=== PATIENT | female | born 1960 | race Caucasian/White ===

== ENCOUNTER 2019-07-14 09:36 | Inpatient (IN) | payer OTHER, SELFPAY ==
[2019-07-14] VITALS (15 sets, daily range): BP systolic 103–156; BP diastolic 52–78; PULSE 50–107; RESP 9–18; TEMP 36.3–36.8; O2SAT 96–100; BMI 30.7
--- NOTE | ~2019-07-14 | XR_ITS ---
EXAMINATION: XR abdomen obstructive series DATE: 07/17/2019 12:18 INDICATION: Postoperative abdominal pain TECHNIQUE: Upright and supine views of the abdomen were obtained. COMPARISON: None. FINDINGS: A small amount of free intraperitoneal gas is seen, likely related to recent surgery. There are mildly dilated loops of bowel in the left upper quadrant. Subcutaneous gas is seen in the abdomi nal wall. Surgical clips are noted in the right lower quadrant. Contrast from yesterday's CT examinat ion opacifies the urinary bladder. IMPRESSION: 1. Mildly dilated loops of bowel in the left upper quadrant, likely ileus. Reviewed, dictated and finalized at location A.
--- NOTE | ~2019-07-14 | CT_ITS ---
EXAMINATION: CT chest w con DATE: 07/16/2019 10:45 INDICATION: Colon cancer TECHNIQUE: Computed tomography (CT) of the chest was performed with 100 mL Omnipaque-350 intravenous contrast. Additional 3D reconstructions utilizing coronal maximum intensity projection (MIP) were per formed. Automated exposure control and iterative reconstruction technique were employed. The dose-hao gth product was 191.56 mGy-cm. COMPARISON: None FINDINGS: Small bilateral pleural effusions. Consolidation in the bilateral lower lobes with bronchovascular cr owding, relatively homogeneous pulmonary parenchymal enhancement and associated volume loss consisten t with atelectasis. No other pulmonary infiltrates to suggest pneumonia. No pulmonary edema or pneumo thorax. Arch size is normal. No pericardial effusion. No pathologically enlarged thoracic lymphadenop athy. Again seen are a few low-attenuation likely hepatic cyst. Small amount of pneumoperitoneum norm al underlying the right hemidiaphragm consistent with reported recent appendectomy and right hemicole ctomy. Posterior layering high attenuation sludge versus more likely vicariously excreted contrast in the gallbladder. Mild thoracic spondylosis. No suspicious lytic or blastic bone lesions. IMPRESSION: 1. No evident thoracic metastatic disease. 2. Small bilateral pleural effusions with moderate atelectasis in the bilateral dependent lower lobes . 3. Small amount of pneumoperitoneum in the right upper quadrant likely related to reported recent janey endectomy and right hemicolectomy. Reviewed, dictated and finalized at location A. IMPRESSION: 1. No evident thoracic metastatic disease. 2. Small bilateral pleural effusions with moderate atelectasis in the bilateral dependent lower lobes. 3. Small amount of pneumoperitoneum in the right upper quadrant likely related to reported recent appendectomy and right hemicolectomy.
--- NOTE | ~2019-07-14 | CT_ITS ---
EXAMINATION: CT abdomen pelvis w con INDICATION: Diffuse abdominal pain, nausea and vomiting TECHNIQUE: Computed tomographic images of the abdomen and pelvis were obtained after the administrati on of 100 cc of Omnipaque 350 intravenous contrast. The dose-length product (DLP) was 460.11 mGy-cm. Automated exposure control and iterative reconstruction technique were employed. COMPARISON: None available FINDINGS: Minimal dependent atelectasis is present in the lung bases. The heart size is normal. Low a ttenuation lesions of the liver measuring up to 1.2 cm likely represent cysts. The spleen, pancreas, gallbladder, and adrenal glands are normal. The kidneys are unremarkable. No pathologically enlarged abdominal or pelvic lymph nodes are identified. There is no free intraperitoneal gas or evidence of b owel obstruction. The appendix is dilated up to 10 mm at its base. There is adjacent wall thickening and enhancement of the cecum. A 2.4 x 1.9 cm fluid collection is seen near the base of the appendix w ithout rim enhancement. There is mild lumbar spondylosis. IMPRESSION: 1. Acute appendicitis. Wall thickening of the cecum could be reactive or reflect underlying cecal conor plasm resulting in appendicitis. Surgical consultation is recommended. Reviewed, dictated and finalized at location B. IMPRESSION: 1. Acute appendicitis. Wall thickening of the cecum could be reactive or reflec t underlying cecal neoplasm resulting in appendicitis. Surgical consultation is recommended.
--- NOTE | ~2019-07-14 | XR_ITS ---
EXAMINATION: XR abdomen obstructive series DATE: 07/20/2019 10:27 INDICATION: Abdominal distention TECHNIQUE: Upright and supine views of the abdomen were obtained. COMPARISON: 07/17/2019 FINDINGS: No persistent free intraperitoneal gas is identified. Left upper quadrant bowel loops have returned to normal in caliber. No dilated loops of bowel are evident. Subcutaneous gas has also decre ased. IMPRESSION: 1. Nonobstructive bowel gas pattern. Reviewed, dictated and finalized at location A.
[2019-07-14 10:02] LABS: Hematocrit 41.4 % (37.0-47.0); Hemoglobin 13.5 g/dL (12.0-15.0); Mean Corpuscular HGB Conc 32.6 g/dl (32-36); Mean Corpuscular Hemoglobin 27.2 pg (26-34); Mean Corpuscular Volume 83.5 fl (80-100); Mean Platelet Volume 9.7 fl (7.4-10.4); Platelet Count Result 335 k/mm3 (150-375); Red Blood Count 4.96 M/mm3 (4.2-5.4); Red Cell Distribution Width 13.2 % (11.5-14.5); White Blood Count 21.2 K/mm3 (4.5-10.0)
--- NOTE | 2019-07-14 10:05 | ED.ABDPAIN ---
HPI - Abdominal Pain General Chief Complaint: Abdominal Pain <ABISAI Thapa Last Filed: 07/14/19 11:52> Stated Complaint: abd pain <ABISAI Thapa Last Filed: 07/14/19 11:52> Time Seen by Provider: 07/14/19 09:42 <ABISAI Thapa Last Filed: 07/14/19 11:52> Source: patient <ABISAI Thapa Last Filed: 07/14/19 11:52> Mode of arrival: ambulatory <ABISAI Thapa Last Filed: 07/14/19 11:52> Limitations: no limitations <ABISAI Thapa Last Filed: 07/14/19 11:52> History of Present Illness HPI narrative: This is a 58 year old female that presents to the ER for diffuse abdominal pain. Reports diffuse crampy/sharp abdominal pain that started around 11:00pm last night. Associated with nausea and vomiting. Also reports some frequent stools, that are normal in caliber. Reports she has had urinary frequency as well. Denies fever, chest pain, shortness of breath, diarrhea, hematochezia, dysuria or hematuria. <ABISAI Thapa Last Filed: 07/14/19 11:52> Related Data Home Medications: Home Medications Medication Instructions Recorded Confirmed No Home Medications 03/19/19 03/19/19 <ABISAI Thapa Last Filed: 07/14/19 11:52> Allergies/Adverse Reactions: Allergies Allergy/AdvReac Type Severity Reaction Status Date / Time No Known Allergies Allergy Unknown Verified 07/14/19 09:47 <ABISAI Thapa Last Filed: 07/14/19 11:52> Review of Systems Review of Systems: Narrative: CONSTITUTIONAL: Denies fever CARDIOVASCULAR: Denies chest pain RESPIRATORY: Denies dyspnea. GASTROINTESTINAL: Reports abdominal pain, nausea, vomiting. Denies diarrhea. GENITOURINARY: Denies dysuria or hematuria. <ABISAI Thapa Last Filed: 07/14/19 11:52> All systems reviewed & are unremarkable except as noted in HPI and below <Faith Weller PA-C - Last Filed: 07/14/19 11:52> [facility] Past Medical History Medical History: Medical History TONY (obstructive sleep apnea) <Faith Weller PA-C - Last Filed: 07/14/19 11:52> Surgical History Surgical History: Surgical History (Updated 07/14/19 @ 12:23 by Dennis Case DO) History of dilatation and curettage History of laparoscopy <Faith Weller PA-C - Last Filed: 07/14/19 11:52> Social History Social History: Social History Smoking status: Never smoker Second hand tobacco smoke exposure: Yes Alcohol intake: current Drinks per week: 2 Substance use: never Gender identity (if verbalized by the patient): Female Spiritual care concerns: No Agree to blood products: Yes <Faith Weller PA-C - Last Filed: 07/14/19 11:52> Exam Narrative: Exam Narrative: GENERAL: Well-appearing, well-nourished, and in mild acute distress due to pain HEAD: Normocephalic, atraumatic. EYES: EOMI. CHEST: Clear to auscultation. No respiratory distress. No wheezes rales or rhonchi HEART: Regular rate and rhythm. No murmur heard. Normal peripheral pulses. ABDOMEN: Soft, nondistended, normal active bowel sounds. Moderate tenderness to palpation throughout the abdomen, without guarding. No CVA tenderness EXTREMITIES: Normal range of motion. No edema. SKIN: Warm, dry, no rash. NEURO: No focal deficits. Alert and oriented x3. PSYCH: Normal mood and affect <Faith Weller PA-C - Last Filed: 07/14/19 11:52> Course SOFTWARE PACKAGING ENGINEER/PA Physician Supervision For this patient encounter, I reviewed the SOFTWARE PACKAGING ENGINEER or PA documentation, treatment plan, and medical decision making; and I had [id number] time with this patient. GENERAL: Well-appearing, well-nourished, and in no acute distress. HEAD: Normocephalic, atraumatic. CHEST: Clear to auscultation. No respiratory distress. HEART: Regular rate and rhythm. Normal peripheral pulses. ABDOMEN: Soft, mil
[2019-07-14 10:16] LABS: Alanine Aminotransferase 17 U/L (4-35); Albumin Level 4.5 g/dL (3.5-5.1); Alkaline Phosphatase 139 U/L (38-126); Aspartate Amino Transferase 27 U/L (14-36); Bilirubin,Total 0.6 mg/dL (0.2-1.3); Blood Urea Nitrogen 11 mg/dL (7-17); Calcium 9.2 mg/dL (8.4-10.2); Carbon Dioxide 23 mmol/L (22-30); Chloride 102 mmol/L (98-107); Estimated CRCL calculation 84 ml/min; Estimated Glomerular Filt Rate > 60; Glucose 151 mg/dL (65-105); Lipase 32 U/L (23-300); Potassium 3.7 mmol/L (3.4-5.0); Sodium 136 mmol/L (137-145)
[2019-07-14 10:18] LABS: Band Neutrophils Percent 1 % (0-6); Lymphocytes Absolute Manual 0.63 K/mm3 (1.1-4.5); Neutrophils Absolute Manual 20.56 K/mm3 (1.7-7.2); Neutrophils Percent Manual 96 % (46-73); Platelet Estimate Adequate (Adequate); Total Cells Counted 100
[2019-07-14] MEDS: ONDANSETRON INJ 4 MG/2 ML VIAL IV PUSH (10:18)
[2019-07-14] MEDS: FAMOTIDINE 20 MG/2 ML VIAL IV PUSH (10:18)
[2019-07-14] MEDS: MORPHINE SULFATE 4 MG/ML INJ IV PUSH (10:19)
[2019-07-14] MEDS: SODIUM CHLORIDE 0.9% IV 1,000 ML 999 ML IV CONT (10:19)
[2019-07-14 10:23] LABS: Add Urine Microscopic? YES; Appearance Urine Clear (Clear); Bilirubin Urine Negative (Negative); Blood Urine 1+ (Negative); Color Urine Yellow (Yellow); Glucose Urine UA Negative (Negative); Ketones Urine Negative (Negative); Leukocyte Esterase Ur Negative LEU/UL (Negative); Mucus Urine Rare /lpf; Nitrate Urine Negative (Negative); Protein Urine 1+ mg/dL (Negative); Specific Grav Ur 1.024 (1.001-1.035); Squamous Epithelial Cell Urine Few /hpf (Few); Urobilinogen Urine Negative mg/dL (<2.0); WBC Urine 0-3 /hpf
[2019-07-14 11:15] LABS: Lactic Acid Reflex 1.4 mmol/L (0.7-2.1)
--- NOTE | 2019-07-14 11:50 | PC.NURSE ---
report called to OR nurse by ED nurse Mary
--- NOTE | 2019-07-14 12:19 | PM.IMHP ---
H&P: HPI History of Present Illness Chief complaint: abd pain Narrative: Luba Hernandez is a 58 year old female who presented to the emergency department today with complaints of right lower quadrant pain with nausea and vomiting. She began having pain last night around 11:00 p.m.. She does state that she has been having some intermittent right lower quadrant pain that she thought might have been related to a kidney stone or other urinary problem leading up to this. She has never had a colonoscopy. She denies fevers or chills. Review of Systems Review of Systems: All systems reviewed & are unremarkable except as noted in HPI and below Eyes: Eyes: Denies change in vision ENT: Denies hearing loss, Denies neck pain and Denies sore throat Cardiovascular: Cardiovascular: Denies chest pain and Denies dyspnea Respiratory: Respiratory: Denies cough, Denies dyspnea and Denies wheezing Gastrointestinal: Gastrointestinal: Reports as per HPI Genitourinary: Genitourinary: Denies hematuria and Denies dysuria Musculoskeletal: Musculoskeletal: Denies arthralgias, Denies joint swelling and Denies neck pain Allergic/Immunologic: Allergic/Immunologic: Denies wheezing PMF Past Medical History Medical History TONY (obstructive sleep apnea) Surgical History Surgical History (Updated 07/14/19 @ 12:23 by Dennis Case DO) History of dilatation and curettage History of laparoscopy Social History Social History Smoking status: Never smoker Second hand tobacco smoke exposure: Yes Alcohol intake: current Substance use: never Gender identity (if verbalized by the patient): Female Meds Home Medications and Allergies Home Medications Medication Instructions Recorded Confirmed Type No Home Medications 03/19/19 03/19/19 History Allergies Allergy/AdvReac Type Severity Reaction Status Date / Time No Known Allergies Allergy Unknown Verified 07/14/19 09:47 Vital Signs Vital Signs - 24 hr 07/14/19 09:43 07/14/19 10:15 07/14/19 11:13 Temperature 36.8 C Pulse Rate 107 H 90 87 Respiratory Rate 18 18 18 Blood Pressure 148/69 H 156/64 H 143/63 H Pulse Oximetry 100 100 98 07/14/19 12:07 Temperature Pulse Rate 87 Respiratory Rate 16 Blood Pressure 134/60 Pulse Oximetry 100 Exam Const: General: alert; No acute distress Orientation/consciousness: patient oriented x3 Limitations: no limitations HENMT: Head: normocephalic and atraumatic Ears: hearing grossly normal bilaterally General nose exam: Normal external nose present and Normal nares present Mouth: Yes Normal oral and palatal mucosa present and Yes moist mucous membranes Eyes: General: appearance normal, both eyes and all related structures Conjunctivae: conjunctivae normal Sclera: sclerae normal Pupils: Equal, round and reactive pupils present EOM: EOMs intact bilaterally Neck: Neck: normal visual inspection, full ROM, no lymphadenopathy, supple and no JVD Lymphatic: no lymphadenopathy noted Chest: Chest palpation & inspection: normal inspection of the chest Resp: Effort & Inspection: normal respiratory effort and able to speak in complete sentences Auscultation: clear to auscultation bilaterally Percussion: percussion normal Cardio: Jugular venous distension: no JVD Rate: regular rate Rhythm: regular rhythm Heart sounds: S1 normal heart sound present and S2 normal heart sound present Peripheral pulses: Peripheral pulses 2+ throughout GI: Inspection: normal to inspection GI Palp: Yes abdominal tenderness, Yes Soft to palpation, Yes Tenderness to palpation present (GI) (Right lower quadrant), No Guarding due to palpation present (GI), No Hernia present and No Rebound tenderness present Percussion: Yes normal to percussion Auscultation: normal bowel sounds : General: Yes no CVA tenderness Back/Spine/Pelvis:
--- NOTE | 2019-07-14 12:20 | WPDANESEPPF ---
Anes - Initial Pre Proc Eval Procedure: Operation Date: 07/14/19 12:00 Proposed Procedures p Laparoscopic Appendectomy, possible open - Dennis Case DO Date/Time: 07/14/19 12:20 Surgeon: Dennis Case DO Pre Op Diagnosis: abd pain Patient Data Age: 58 Gender: F Height: 5 ft 2 in Weight: 76.2 kg Last Vital Signs Temp 36.8 C 07/14/19 09:43 Pulse 87 07/14/19 12:07 Resp 16 07/14/19 12:07 BP 134/60 07/14/19 12:07 Pulse Ox 100 07/14/19 12:07 Allergies Allergy/AdvReac Type Severity Reaction Status Date / Time No Known Allergies Allergy Unknown Verified 07/14/19 09:47 Home Medications Medication Instructions Recorded Confirmed Type No Home Medications 03/19/19 03/19/19 History Laboratory Tests 07/14/19 07/14/19 07/14/19 09:54 09:54 10:11 WBC 21.2 K/mm3 H K/mm3 (4.5-10.0) RBC 4.96 M/mm3 M/mm3 (4.2-5.4) Hgb 13.5 g/dL g/dL (12.0-15.0) Hct 41.4 % % (37.0-47.0) MCV 83.5 fl fl (80-100) MCH 27.2 pg pg (26-34) MCHC 32.6 g/dl g/dl (32-36) RDW 13.2 % % (11.5-14.5) Plt Count 335 k/mm3 k/mm3 (150-375) MPV 9.7 fl fl (7.4-10.4) Immature Gran % (Auto) Not Reportable Neut % (Auto) Not Reportable Lymph % (Auto) Not Reportable [place] % (Auto) Not Reportable Eos % (Auto) Not Reportable Baso % (Auto) Not Reportable Lymph # (Auto) Not Reportable [place] # (Auto) Not Reportable Eos # (Auto) Not Reportable Baso # (Auto) Not Reportable Abs Immat Gran (auto) Not Reportable Absolute Neuts (auto) Not Reportable Absolute Nucleated RBC Not Reportable Total Counted 100 Neutrophils % (Manual) 96 % H % (46-73) Band Neutrophils % 1 % % (0-6) Lymphocytes % (Manual) 3.0 % L % (18-44) Nucleated RBC % Not Reportable Abs Neuts (Manual) 20.56 K/mm3 H K/mm3 (1.7-7.2) Abs Lymphs (Manual) 0.63 K/mm3 L K/mm3 (1.1-4.5) Platelet Estimate Adequate (Adequate) Sodium 136 mmol/L L mmol/L (137-145) Potassium 3.7 mmol/L mmol/L (3.4-5.0) Chloride 102 mmol/L mmol/L (98-107) Carbon Dioxide 23 mmol/L mmol/L (22-30) BUN 11 mg/dL mg/dL (7-17) Creatinine 0.60 mg/dL L mg/dL (0.7-1.0) Estim Creat Clear Calc 84 ml/min ml/min Estimated GFR > 60 (59 - ) Glucose 151 mg/dL H mg/dL (65-105) Lactic Acid Calcium 9.2 mg/dL mg/dL (8.4-10.2) Total Bilirubin 0.6 mg/dL mg/dL (0.2-1.3) AST 27 U/L U/L (14-36) ALT 17 U/L U/L (4-35) Alkaline Phosphatase 139 U/L H U/L (38-126) Total Protein 8.0 g/dL g/dL (6.3-8.2) Albumin 4.5 g/dL g/dL (3.5-5.1) Lipase 32 U/L U/L (23-300) Urine Color Yellow (Yellow) Urine Appearance Clear (Clear) Urine pH 6.0 (5.0-9.0) Ur Specific [place] 1.024 (1.001-1.035) Urine Protein 1+ mg/dL H mg/dL (Negative) Urine Glucose (UA) Negative mg/dL mg/dL (Negative) Urine Ketones Negative mg/dL mg/dL (Negative) Ur Blood (Man) 1+ H (Negative) Urine Nitrate Negative (Negative) Urine Bilirubin Negative (Negative) Urine Urobilinogen Negative mg/dL mg/dL (<2.0) Leukocyte Esterase Rfl Negative FRANKLYN/UL FRANKLYN/UL (Negative) Urine RBC 6-10 /hpf H /hpf (0-2) Urine WBC 0-3 /hpf /hpf Ur Squamous Epith Cells Few /hpf /hpf (Few) Urine Mucus Rare /lpf /lpf 07/14/19 10:56 WBC RBC Hgb Hct MCV MCH MCHC RDW Plt Count M
[2019-07-14] MEDS: SCOPOLAMINE 1.5 MG PATCH TRANSDERM (12:25)
[2019-07-14] MEDS: LACTATED RINGERS 1,000 ML 30 ML IV CONT ×2 (12:30→14:50)
[2019-07-14] MEDS: IBUPROFEN IV 800 MG/200 ML 800 MG/200 ML BAG 400 MG IVPB (13:03)
[2019-07-14] MEDS: BUPIVACAINE/EPINEPHRINE 0.5% 30 ML VIAL INFILTRATE (13:08)
--- NOTE | 2019-07-14 15:07 | PM.PROC ---
Procedure Note - Detailed Date of procedure: 07/14/19 Pre-op diagnosis: Acute appendicitis Post-op diagnosis: other (Cecal/Appendicieal Mass) Procedure performed: Hand assisted laparoscopic right hemicolectomy with ileocolic anastomosis Description of procedure: Procedure as well as risks, benefits, and alternatives were discussed with the patient. Written consent was obtained and placed in chart prior to procedure. Patient was brought back to surgical suite. She was placed supine on operating table. Time-out was done to confirm patient and procedure. She was then intubated by the anesthesia department. Her abdomen was prepped and draped in sterile fashion using chlorhexidine prep. A 5 mm incision was made just to the left of the umbilicus using a 15 blade scalpel, and a 5 mm Optiview trocar was advanced through the abdominal layers under direct visualization. Once inside the abdominal cavity, carbon dioxide insufflation was used to create a pneumoperitoneum. The camera was inserted in the abdomen was inspected. No immediate abnormalities were identified. The patient was placed in Trendelenburg position and rotated slightly to the left. A 5 mm incision was made in the suprapubic region and midline and a 5 mm trocar was inserted under direct visualization. A 12 mm incision was made in the left lower quadrant, and a 12 mm trocar was inserted under direct visualization. A careful inspection of the abdominal cavity was performed. The cecum was identified extending down into the pelvis and was tethered to the right lateral pelvic wall. The tip of the appendix was identified and this was grasped and lifted anteriorly and medially. Careful blunt dissection was carried out around length of the appendix to free the appendix up all the way to the base of the appendix. It appeared that there did appear to be a mass either extending from the appendix to the cecum or from the cecum to the appendix. The appendix and cecum in this area was very friable and looked grossly malignant. A window was created in the mesoappendix near the base of the appendix using blunt dissection with a [place] grasper. A MARIZA 45 mm blue load stapler was then advanced across the base of the appendix and clamped and fired. A white reload stapler was then clamped across the mesoappendix and fired. This freed up the appendix completely and it was placed in an Endo-Catch bag and removed through the 12 mm port. after carefully inspecting the staple lines, there was some bleeding along the mesoappendix staple line and this was controlled using a 5 mm Endoclip communications scientist. Upon inspecting the staple line at the base of the appendix, there did appear to be gross tumor still residual along the cecum and there did appear to be a perforation into the lumen of the cecum from the tumor. I then chose to convert to a hand assisted laparoscopic right hemicolectomy. The patient was flattened out bed, and a 6 cm vertical incision was made using a 15 blade scalpel just superior to the umbilicus. Electrocautery was used for hemostasis and for dissection down through Ebenezer's fascia. The linea alba was identified and incised using electrocautery. The peritoneum was then entered using electrocautery. A wound protector was then placed at this incision and a GelPort was applied over the wound protector. I then placed the patient back in Trendelenburg position and rotated to the left. I placed my right hand through the GelPort and into the abdominal cavity. I then carefully inspected the abdominal cavity once again and lifted the cecum anteriorly and laterally to tent the ileocolic vessels. A medial to lateral approach was utilized to perform my dissection initially on the vascular pedicle to perform a high ligation. Hook electrocautery was used to score the inferior medial surface of the peritoneum along the mesocolon going along with the ileocolic vessels. The retroperitoneal avascular plane was entered and this was
--- NOTE | 2019-07-14 16:21 | PC.NURSE ---
This patient, Luba Hernandez, was admitted to [facility] Surg Room 317-01. Patient/family oriented to hospital policies and general routines including ID bracelet, bed and alarms, visiting hours, pain management, procedures, bathroom and other care routines, personal items, smoking policy, room service/diet, and visiting hours. Valuables list has been completed. Information on how to activate the Rapid Response Team has been discussed. Patient/Family are encouraged to report perceived risks to care and to ask questions if they do not understand what they are told or what they should do.
[2019-07-14] MEDS: ACETAMINOPHEN 500 MG TABLET 1000 MG PO ×2 (16:39→22:08)
[2019-07-14] MEDS: LACTATED RINGERS 1,000 ML 100 ML IV CONT (16:46)
[2019-07-14] MEDS: HYDROMORPHONE HCL 1 MG/ML INJ IV PUSH (20:40)
[2019-07-15 02:00] VITALS: BP 124/65; PULSE 93; RESP 16; TEMP 37.1; O2SAT 100
[2019-07-15] MEDS: HYDROMORPHONE HCL 1 MG/ML INJ 0.5 MG IV PUSH (02:43)
[2019-07-15] MEDS: LACTATED RINGERS 1,000 ML 100 ML IV CONT ×2 (02:43→17:46)
[2019-07-15] MEDS: ACETAMINOPHEN 500 MG TABLET 1000 MG PO ×2 (03:39→10:00)
[2019-07-15 06:00] VITALS: PULSE 83; RESP 16; O2SAT 94
[2019-07-15 06:32] VITALS: BP 130/60; TEMP 36.9
[2019-07-15 06:38] LABS: Blood Urea Nitrogen 12 mg/dL (7-17); Calcium 8.6 mg/dL (8.4-10.2); Carbon Dioxide 28 mmol/L (22-30); Chloride 100 mmol/L (98-107); Estimated CRCL calculation 58 ml/min; Estimated Glomerular Filt Rate > 60; Glucose 125 mg/dL (65-105); Potassium 3.7 mmol/L (3.4-5.0); Sodium 132 mmol/L (137-145)
[2019-07-15 06:54] LABS: Basophils Percent Auto 0.2 % (0.2-1.2); Hematocrit 32.6 % (37.0-47.0); Hemoglobin 10.5 g/dL (12.0-15.0); Immature Granulocyte Absolute 0.03 K/mm3 (0.00-0.031); Immature Granulocyte Percent A 0.2 % (0-0.5); Lymphocytes Absolute Auto 0.79 K/mm3 (0.9-3.2); Lymphocytes Percent Auto 6.5 % (18.3-44.2); Mean Corpuscular HGB Conc 32.2 g/dl (32-36); Mean Corpuscular Hemoglobin 27.3 pg (26-34); Mean Corpuscular Volume 84.9 fl (80-100); Monocytes Absolute Auto 0.3 K/mm3 (0.1-0.6); Monocytes Percent Auto 2.8 % (2.6-8.5); Neutrophils Percent Auto 90.3 % (45.5-73.1); Platelet Count Result 289 k/mm3 (150-375); Red Blood Count 3.84 M/mm3 (4.2-5.4); Red Cell Distribution Width 13.6 % (11.5-14.5); White Blood Count 12.2 K/mm3 (4.5-10.0)
[2019-07-15] MEDS: HYDROMORPHONE HCL 1 MG/ML INJ IV PUSH ×2 (08:34→12:07)
[2019-07-15] MEDS: ENOXAPARIN 40 MG/0.4 ML SYRINGE SUB-Q (10:00)
--- NOTE | 2019-07-15 12:48 | PM.PNGS ---
Progress Note: A&P Assessment and Plan (1) Mass of cecum: Code(s): K63.89 - Other specified diseases of intestine Status: Acute Assessment and Plan: CEA level significantly elevated at 45 Pathology pending Continue clear liquids today, increase activity, transition to oral pain meds. (2) Acute appendicitis: Qualifiers: Acute appendicitis type: with localized peritonitis Appendicitis abscess presence: with abscess Appendicitis gangrene presence: without gangrene Appendicitis perforation presence: unspecified whether perforation present Qualified Code(s): K35.33 - Acute appendicitis with perforation and localized peritonitis, with abscess Code(s): K35.80 - Unspecified acute appendicitis Status: Acute Assessment and Plan: Appendicitis likely caused by obstructed lumen from cecal mass Subjective Subjective Date/Time Seen: 07/15/19 12:48 Pain controlled. Tolerating clear liquids. No bowel movement yet. Afebrile. Exam GI: Inspection: incision (Mild ecchymosis, glue intact) GI Palp: Yes Soft to palpation and Yes Tenderness to palpation present (GI) (Incisional) Auscultation: Hypoactive bowel sounds present Objective Data Vital Signs Vital Signs: Vital Signs - 24 hr 07/14/19 14:50 07/14/19 15:05 07/14/19 15:15 Temperature 36.3 C L Pulse Rate 74 66 56 L Respiratory Rate 18 9 L 13 Blood Pressure 139/77 131/54 L 135/52 L Pulse Oximetry 100 100 100 07/14/19 15:30 07/14/19 15:45 07/14/19 16:05 Temperature Pulse Rate 50 L 61 61 Respiratory Rate 14 14 16 Blood Pressure 135/59 L 119/61 105/56 L Pulse Oximetry 96 97 97 07/14/19 16:20 07/14/19 16:50 07/14/19 17:50 Temperature 36.7 C Pulse Rate 58 L 60 63 Respiratory Rate 16 16 16 Blood Pressure 103/56 L 105/61 110/63 Pulse Oximetry 98 98 97 07/14/19 22:00 07/15/19 02:00 07/15/19 06:00 Temperature 36.6 C 37.1 C Pulse Rate 89 93 83 Respiratory Rate 16 16 16 Blood Pressure 113/55 L 124/65 Pulse Oximetry 97 100 94 07/15/19 06:32 Temperature 36.9 C Pulse Rate Respiratory Rate Blood Pressure 130/60 Pulse Oximetry Intake/Output Intake/Output: Intake & Output 07/12/19 07/13/19 07/14/19 07/15/19 23:59 23:59 23:59 23:59 Intake Total 490 1340 Balance 490 1340 Meds/Results Medications: Active Medications Generic Name Dose Route Start Last Admin Trade Name Freq PRN Reason Stop Dose Admin Enoxaparin Sodium 40 mg 07/15/19 09:00 07/15/19 10:00 Lovenox SUB-Q 40 mg DAILY HORTENCIA Administration Hydromorphone HCl 1 mg 07/14/19 15:58 07/15/19 12:07 Dilaudid Inj IV PUSH 1 mg Q2H PRN Administration Pain Rated 7-10 Hydromorphone HCl 0.5 mg 07/14/19 15:58 07/15/19 02:43 Dilaudid Inj IV PUSH 0.5 mg Q2H PRN Administration Pain Rated 4-6 Lactated Ringer's 1,000 mls @ 100 mls/hr 07/14/19 15:58 07/15/19 02:43 Lr - Lactated Ringers Iv IV CONT 100 mls/hr .Q10H HORTENCIA Administration Piperacillin/Tazobactam/Dextrose 3.375 gm in 50 mls @ 100 mls/hr 07/14/19 18:00 07/15/19 12:07 Zosyn 3.375 Gm/D5w 50ml Pm IVPB 100 mls/hr Q6H HORTENCIA Administration Ondansetron HCl 4 mg 07/14/19 15:58 Zofran Inj IV PUSH Q4H PRN Nausea And Vomiting Radiology Results: ITS Impressions Abdomen/Pelvis CT 07/14/19 10:49 IMPRESSION: 1. Acute appendicitis. Wall thickening of the cecum could be reactive or reflect underlying cecal neoplasm resulting in appendicitis. Surgical consultation is recommended. Labs Labs: Laboratory Results - last 24 hr 07/14/19 07/15/19 07/15/19 15:14 06:00 06:00 WBC 12.2 H RBC 3.84 L Hgb 10.5 L D Hct 32.6 L MCV 84.9 MCH 27.3 MCHC 32.2 RDW 13.6 Plt Count 289 MPV 10.0 Immature Gran % (Auto) 0.2 Neut % (Auto) 90.3 H Lymph % (Auto) 6.5 L [place] % (Auto) 2.8 Eos % (Auto) 0.0 Baso % (Auto) 0.2 Lymph # (Auto) 0.79 L [place] # (Auto) 0.3 Eos
[2019-07-15 14:00] VITALS: BP 117/48; PULSE 94; RESP 20; TEMP 37.2; O2SAT 94
[2019-07-15 22:00] VITALS: BP 145/61; PULSE 90; RESP 18; TEMP 36.6; O2SAT 92
[2019-07-15] MEDS: ONDANSETRON INJ 4 MG/2 ML VIAL IV PUSH (23:43)
[2019-07-16] MEDS: HYDROMORPHONE HCL 1 MG/ML INJ 0.5 MG IV PUSH ×2 (01:50→14:45)
[2019-07-16] MEDS: LACTATED RINGERS 1,000 ML 100 ML IV CONT ×2 (01:50→14:44)
[2019-07-16] MEDS: ONDANSETRON INJ 4 MG/2 ML VIAL IV PUSH ×3 (04:41→14:46)
[2019-07-16] MEDS: HYDROMORPHONE HCL 1 MG/ML INJ IV PUSH ×4 (04:42→21:55)
[2019-07-16 06:00] VITALS: BP 145/65; PULSE 103; RESP 18; TEMP 37.1; O2SAT 93
[2019-07-16 06:38] LABS: Blood Urea Nitrogen 10 mg/dL (7-17); Carbon Dioxide 30 mmol/L (22-30); Chloride 98 mmol/L (98-107); Estimated CRCL calculation 66 ml/min; Estimated Glomerular Filt Rate > 60; Glucose 97 mg/dL (65-105); Potassium 3.1 mmol/L (3.4-5.0); Sodium 135 mmol/L (137-145)
[2019-07-16 06:43] LABS: Hematocrit 31.1 % (37.0-47.0); Hemoglobin 10.1 g/dL (12.0-15.0); Mean Corpuscular HGB Conc 32.5 g/dl (32-36); Mean Corpuscular Hemoglobin 27.3 pg (26-34); Mean Corpuscular Volume 84.1 fl (80-100); Mean Platelet Volume 9.7 fl (7.4-10.4); Platelet Count Result 263 k/mm3 (150-375); Red Cell Distribution Width 13.5 % (11.5-14.5)
[2019-07-16] MEDS: ENOXAPARIN 40 MG/0.4 ML SYRINGE SUB-Q (09:48)
--- NOTE | 2019-07-16 13:47 | PM.PNGS ---
Progress Note: A&P Assessment and Plan (1) Mass of cecum: Code(s): K63.89 - Other specified diseases of intestine Status: Acute Assessment and Plan: Await return of bowel function, increase activity Pathology pending (2) Acute appendicitis: Qualifiers: Acute appendicitis type: with localized peritonitis Appendicitis abscess presence: with abscess Appendicitis gangrene presence: without gangrene Appendicitis perforation presence: unspecified whether perforation present Qualified Code(s): K35.33 - Acute appendicitis with perforation and localized peritonitis, with abscess Code(s): K35.80 - Unspecified acute appendicitis Status: Acute (3) Postoperative ileus: Code(s): K91.89 - Other postprocedural complications and disorders of digestive system; K56.7 - Ileus, unspecified Status: Acute Assessment and Plan: Will back down to NPO except for ice chips today, discussed possible need for NG tube if patient begins vomiting. Will give a dose of Relistor today to counter narcotic defects on bowel. (4) Hypokalemia: Code(s): E87.6 - Hypokalemia Status: Acute Assessment and Plan: Replace potassium IV since patient not tolerating p.o. very well Subjective Subjective Date/Time Seen: 07/16/19 13:47 Patient having increasing abdominal discomfort with bloating and nausea today. No vomiting yet. No bowel movement or flatus. Exam GI: Inspection: distended GI Palp: Yes Tenderness to palpation present (GI) (Mild generalized and incisional) Auscultation: Hypoactive bowel sounds present Objective Data Vital Signs Vital Signs: Vital Signs - 24 hr 07/15/19 14:00 07/15/19 22:00 07/16/19 06:00 Temperature 37.2 C 36.6 C 37.1 C Pulse Rate 94 90 103 H Respiratory Rate 20 18 18 Blood Pressure 117/48 L 145/61 H 145/65 H Pulse Oximetry 94 92 93 Intake/Output Intake/Output: Intake & Output 07/13/19 07/14/19 07/15/19 07/16/19 23:59 23:59 23:59 23:59 Intake Total 490 3060 1340 Output Total 300 400 Balance 490 2760 940 Meds/Results Medications: Active Medications Generic Name Dose Route Start Last Admin Trade Name Freq PRN Reason Stop Dose Admin Acetaminophen 650 mg 07/15/19 12:48 Tylenol Tablet PO Q6H PRN Pain Rated 1-3 Hydrocodone Bitart/Acetaminophen 1 tab 07/15/19 12:46 [place] 5-325 Mg PO Q4H PRN Pain Rated 4-6 Hydrocodone Bitart/Acetaminophen 1 tab 07/15/19 12:46 07/15/19 14:24 [place] 10-325 Mg PO 1 tab Q4H PRN Administration Pain Rated 7-10 Enoxaparin Sodium 40 mg 07/15/19 09:00 07/16/19 09:48 Lovenox SUB-Q 40 mg DAILY HORTENCIA Administration Hydromorphone HCl 1 mg 07/14/19 15:58 07/16/19 09:34 Dilaudid Inj IV PUSH 1 mg Q2H PRN Administration Pain Rated 7-10 Hydromorphone HCl 0.5 mg 07/14/19 15:58 07/16/19 01:50 Dilaudid Inj IV PUSH 0.5 mg Q2H PRN Administration Pain Rated 4-6 Lactated Ringer's 1,000 mls @ 100 mls/hr 07/14/19 15:58 07/16/19 01:50 Lr - Lactated Ringers Iv IV CONT 100 mls/hr .Q10H HORTENCIA Administration Piperacillin/Tazobactam/Dextrose 3.375 gm in 50 mls @ 100 mls/hr 07/14/19 18:00 07/16/19 12:23 Zosyn 3.375 Gm/D5w 50ml Pm IVPB 100 mls/hr Q6H HORTENCIA Administration Ondansetron HCl 4 mg 07/14/19 15:58 07/16/19 09:34 Zofran Inj IV PUSH 4 mg Q4H PRN Administration Nausea And Vomiting Radiology Results: ITS Impressions Abdomen/Pelvis CT 07/14/19 10:49 IMPRESSION: 1. Acute appendicitis. Wall thickening of the cecum could be reactive or reflect underlying cecal neoplasm resulting in appendicitis. Surgical consultation is recommended. Chest CT 07/16/19 11:14 IMPRESSION: 1. No evident thoracic metastatic disease. 2. Small bilateral pleural effusions with moderate atelectasis in the bilateral dependent lower lobes. 3. Small amount of pneumoperitoneum in the right upper quadrant likely rela
[2019-07-16 14:00] VITALS: BP 148/79; PULSE 112; RESP 22; TEMP 36.9; O2SAT 90
[2019-07-16] MEDS: METHYLNALTREXONE 12 MG/0.6 ML VIAL SUB-Q (14:44)
[2019-07-16 20:00] VITALS: PULSE 0; RESP 0; O2SAT 0
[2019-07-16] MEDS: PROMETHAZINE HCL 25 MG/ML AMPUL 12.5 MG IV PUSH (21:56)
[2019-07-17] MEDS: LACTATED RINGERS 1,000 ML 100 ML IV CONT ×2 (04:29→15:30)
[2019-07-17] MEDS: HYDROMORPHONE HCL 1 MG/ML INJ IV PUSH ×3 (05:08→17:36)
[2019-07-17] MEDS: PROMETHAZINE HCL 25 MG/ML AMPUL 12.5 MG IV PUSH (05:08)
[2019-07-17 06:00] VITALS: BP 129/76; PULSE 113; RESP 16; TEMP 36.9; O2SAT 93
[2019-07-17 06:20] LABS: Hematocrit 32.1 % (37.0-47.0); Hemoglobin 10.5 g/dL (12.0-15.0); Mean Corpuscular HGB Conc 32.7 g/dl (32-36); Mean Corpuscular Hemoglobin 27.3 pg (26-34); Mean Corpuscular Volume 83.4 fl (80-100); Mean Platelet Volume 9.5 fl (7.4-10.4); Platelet Count Result 313 k/mm3 (150-375); Red Blood Count 3.85 M/mm3 (4.2-5.4); Red Cell Distribution Width 13.6 % (11.5-14.5); White Blood Count 11.9 K/mm3 (4.5-10.0)
[2019-07-17 06:35] LABS: Blood Urea Nitrogen 11 mg/dL (7-17); Calcium 8.2 mg/dL (8.4-10.2); Carbon Dioxide 29 mmol/L (22-30); Chloride 100 mmol/L (98-107); Estimated CRCL calculation 89 ml/min; Estimated Glomerular Filt Rate > 60; Glucose 101 mg/dL (65-105); Magnesium 2.1 mg/dL (1.6-2.3); Potassium 3.2 mmol/L (3.4-5.0); Sodium 132 mmol/L (137-145)
[2019-07-17 08:00] VITALS: PULSE 109; RESP 16; O2SAT 93
[2019-07-17] MEDS: ENOXAPARIN 40 MG/0.4 ML SYRINGE SUB-Q (08:07)
[2019-07-17] MEDS: ONDANSETRON INJ 4 MG/2 ML VIAL IV PUSH ×4 (10:26→22:02)
--- NOTE | 2019-07-17 11:43 | PM.PNGS ---
Progress Note: A&P Assessment and Plan (1) Mass of cecum: Code(s): K63.89 - Other specified diseases of intestine Status: Acute Assessment and Plan: Patient with persistent nausea and abdominal pain. Still no flatus but is starting to feel some movement in her abdomen. Will get an obstructive series now. Depending on the abdominal films, if her nausea persists and her bowels do not move, then we may need to consider NG tube placement. Will keep the patient NPO for now with IV fluids running. Encouraged increased activity -- sitting in the chair and up walking the halls today. Pathology pending. CEA 45. Chest CT with no evidence of metastatic disease. (2) Acute appendicitis: Qualifiers: Acute appendicitis type: with localized peritonitis Appendicitis abscess presence: with abscess Appendicitis gangrene presence: without gangrene Appendicitis perforation presence: unspecified whether perforation present Qualified Code(s): K35.33 - Acute appendicitis with perforation and localized peritonitis, with abscess Code(s): K35.80 - Unspecified acute appendicitis Status: Acute Assessment and Plan: Continue IV abx. Pathology pending. See plan above. (3) Postoperative ileus: Code(s): K91.89 - Other postprocedural complications and disorders of digestive system; K56.7 - Ileus, unspecified Status: Acute Assessment and Plan: Likely has developed a post-op ileus. Getting abdominal films today. Will try to stimulate her bowels with a suppository. If her bowel function does not return or her nausea persists/worsens, then we may need to place an NG tube. Continue bowel rest for now. (4) Hypokalemia: Code(s): E87.6 - Hypokalemia Status: Acute Assessment and Plan: Replaced potassium IV again today since patient is not tolerating oral intake well. Continue to monitor. Repeat labs in the am. Additional Plan Discussed plan of care with Dr. Case. Subjective Subjective Date/Time Seen: 07/17/19 11:43 Post Op day: 3 (MEHRDAD right hemicolectomy) Patient reports: still having pain, no flatus, no bowel movement and nausea Interval history: Patient reports feeling slightly better today but still having constant nausea with dry heaving. Denies flatus or BM. Reports still having constant abdominal pain but slightly improved from yesterday. Has already been in the chair and walked the halls today. Reports feeling slightly short of breath with activity but not at rest. No other complaints at this time. Review of Systems Review of Systems: All systems reviewed & are unremarkable except as noted in HPI and below Exam Const: General: comfortable, no acute distress, alert and awake Orientation/consciousness: patient oriented x3 Resp: Effort & Inspection: normal respiratory effort and able to speak in complete sentences Auscultation: clear to auscultation bilaterally Cardio: Rate: tachycardic Rhythm: regular rhythm GI: Inspection: distended and incision (Incisions clean/dry/intact.) GI Palp: Yes Soft to palpation and Yes Tenderness to palpation present (GI) (diffusely tender with incisional tenderness) Auscultation: Hypoactive bowel sounds present Skin: General skin exam: normal color Neuro: General: moves all extremities Cranial nerves: Yes CN's II-XII intact bilaterally Speech: normal speech Extrem: General: no calf tenderness and no edema Psych: Mental Status: mental status grossly normal Attitude: cooperative Thought process: Normal thought process present Thought content: Yes Normal thought content present Objective Data Vital Signs Vital Signs: Vital Signs - 24 hr 07/16/19 14:00 07/16/19 20:00 07/17/19 06:00 Temperature 36.9 C 36.9 C Pulse Rate 112 H 0 L 113 H Respiratory Rate 22 H 0 L 16 Blood Pressure 148/79 H 129/76 Pulse Oximetry 90 0 L 93 07/17/19 08:00 Temperature Pulse Rate 109 H Respiratory Rate 16 Blood Pressure Pulse Oximetr
[2019-07-17 14:00] VITALS: BP 138/65; PULSE 97; RESP 18; TEMP 36.6; O2SAT 93
[2019-07-17] MEDS: BISACODYL 10 MG SUPPOSITORY RECTAL (16:17)
[2019-07-17] MEDS: BISACODYL 10 MG SUPPOSITORY (16:25)
[2019-07-17] MEDS: FAMOTIDINE 20 MG/2 ML VIAL IV PUSH (20:43)
[2019-07-17 22:00] VITALS: BP 137/72; PULSE 97; RESP 18; TEMP 36.7; O2SAT 98
[2019-07-18] MEDS: PROMETHAZINE HCL 25 MG/ML AMPUL 12.5 MG IV PUSH (00:17)
[2019-07-18] MEDS: HYDROMORPHONE HCL 1 MG/ML INJ IV PUSH ×4 (00:17→18:39)
[2019-07-18] MEDS: ONDANSETRON INJ 4 MG/2 ML VIAL IV PUSH ×3 (05:54→18:28)
[2019-07-18 06:00] VITALS: BP 146/68; PULSE 90; RESP 18; TEMP 36.6; O2SAT 95
[2019-07-18 07:07] LABS: Blood Urea Nitrogen 8 mg/dL (7-17); Calcium 7.7 mg/dL (8.4-10.2); Carbon Dioxide 25 mmol/L (22-30); Chloride 100 mmol/L (98-107); Estimated CRCL calculation 88 ml/min; Estimated Glomerular Filt Rate > 60; Glucose 113 mg/dL (65-105); Hematocrit 32.1 % (37.0-47.0); Hemoglobin 10.3 g/dL (12.0-15.0); Mean Corpuscular HGB Conc 32.1 g/dl (32-36); Mean Corpuscular Hemoglobin 26.8 pg (26-34); Mean Corpuscular Volume 83.6 fl (80-100); Mean Platelet Volume 9.2 fl (7.4-10.4); Platelet Count Result 311 k/mm3 (150-375); Potassium 3.2 mmol/L (3.4-5.0); Red Blood Count 3.84 M/mm3 (4.2-5.4); Red Cell Distribution Width 13.7 % (11.5-14.5); Sodium 131 mmol/L (137-145); White Blood Count 9.4 K/mm3 (4.5-10.0)
[2019-07-18] MEDS: ENOXAPARIN 40 MG/0.4 ML SYRINGE SUB-Q (08:05)
[2019-07-18] MEDS: FAMOTIDINE 20 MG/2 ML VIAL IV PUSH ×2 (08:05→21:10)
[2019-07-18] MEDS: LACTATED RINGERS 1,000 ML 100 ML IV CONT ×2 (08:08→21:10)
--- NOTE | 2019-07-18 13:47 | PM.PNGS ---
Progress Note: A&P Assessment and Plan (1) Carcinoma of cecum: Code(s): C18.0 - Malignant neoplasm of cecum Status: Acute Assessment and Plan: Discussed pathology results with patient and . T4bN2a colon cancer, Stage IIIc. Will eventually need referral to Oncology as outpatient Started clear liquids today, will advance over next 1-2 days as tolerated Continue ambulating in halls (2) Hypokalemia: Code(s): E87.6 - Hypokalemia Status: Acute (3) Postoperative ileus: Code(s): K91.89 - Other postprocedural complications and disorders of digestive system; K56.7 - Ileus, unspecified Status: Acute Assessment and Plan: Slowly improving (4) Acute appendicitis: Qualifiers: Acute appendicitis type: with localized peritonitis Appendicitis abscess presence: with abscess Appendicitis gangrene presence: without gangrene Appendicitis perforation presence: unspecified whether perforation present Qualified Code(s): K35.33 - Acute appendicitis with perforation and localized peritonitis, with abscess Code(s): K35.80 - Unspecified acute appendicitis Status: Acute Subjective Subjective Date/Time Seen: 07/18/19 13:47 Bowels moving. Patient feeling a little better today. Still having occasional nausea and not taking in much PO. No fevers. Exam GI: Inspection: distended and incision (C/D/I) GI Palp: Yes Tenderness to palpation present (GI) (mild generalized) Auscultation: Hypoactive bowel sounds present Objective Data Vital Signs Vital Signs: Vital Signs - 24 hr 07/17/19 14:00 07/17/19 22:00 07/18/19 06:00 Temperature 36.6 C 36.7 C 36.6 C Pulse Rate 97 97 90 Respiratory Rate 18 18 18 Blood Pressure 138/65 137/72 146/68 H Pulse Oximetry 93 98 95 Intake/Output Intake/Output: Intake & Output 07/15/19 07/16/19 07/17/19 07/18/19 23:59 23:59 23:59 23:59 Intake Total 3060 3260 2760 1150 Output Total 830 330 9797 Balance 2760 2460 1410 1150 Meds/Results Medications: Active Medications Generic Name Dose Route Start Last Admin Trade Name Freq PRN Reason Stop Dose Admin Acetaminophen 650 mg 07/15/19 12:48 Tylenol Tablet PO Q6H PRN Pain Rated 1-3 Hydrocodone Bitart/Acetaminophen 1 tab 07/15/19 12:46 [place] 5-325 Mg PO Q4H PRN Pain Rated 4-6 Hydrocodone Bitart/Acetaminophen 1 tab 07/15/19 12:46 07/15/19 14:24 [place] 10-325 Mg PO 1 tab Q4H PRN Administration Pain Rated 7-10 Enoxaparin Sodium 40 mg 07/15/19 09:00 07/18/19 08:05 Lovenox SUB-Q 40 mg DAILY HORTENCIA Administration Famotidine 20 mg 07/17/19 21:00 07/18/19 08:05 Pepcid Iv IV PUSH 20 mg Q12HR HORTENCIA Administration Hydromorphone HCl 1 mg 07/14/19 15:58 07/18/19 12:09 Dilaudid Inj IV PUSH 1 mg Q2H PRN Administration Pain Rated 7-10 Hydromorphone HCl 0.5 mg 07/14/19 15:58 07/16/19 14:45 Dilaudid Inj IV PUSH 0.5 mg Q2H PRN Administration Pain Rated 4-6 Lactated Ringer's 1,000 mls @ 100 mls/hr 07/14/19 15:58 07/18/19 12:21 Lr - Lactated Ringers Iv IV CONT 100 mls/hr .Q10H HORTENCIA Infusion Piperacillin/Tazobactam/Dextrose 3.375 gm in 50 mls @ 100 mls/hr 07/14/19 18:00 07/18/19 12:21 Zosyn 3.375 Gm/D5w 50ml Pm IVPB Infused Q6H HORTENCIA Infusion Ondansetron HCl 4 mg 07/14/19 15:58 07/18/19 11:55 Zofran Inj IV PUSH 4 mg Q4H PRN Administration Nausea And Vomiting Promethazine HCl 12.5 mg 07/16/19 20:35 07/18/19 00:17 Phenergan Inj IV PUSH 12.5 mg Q6HR PRN Administration Nausea And Vomiting Radiology Results: ITS Impressions Abdomen/Pelvis CT 07/14/19 10:49 IMPRESSION: 1. Acute appendicitis. Wall thickening of the cecum could be reactive or reflect underlying cecal neoplasm resulting in appendicitis. Surgical consultation is recommended. Chest CT 07/16/19 11:14 IMPRESSION: 1. No evident thoracic metastatic disease. 2. Small demi
[2019-07-18 13:54] VITALS: BMI 33.7
[2019-07-18 14:00] VITALS: BP 135/62; PULSE 87; RESP 16; TEMP 36.7; O2SAT 96
[2019-07-18] MEDS: POTASSIUM CHLORIDE 20 MEQ TABLET 40 MEQ PO (15:07)
[2019-07-18 22:00] VITALS: BP 139/69; PULSE 90; RESP 18; TEMP 36.9; O2SAT 95
[2019-07-19] MEDS: HYDROMORPHONE HCL 1 MG/ML INJ IV PUSH ×3 (00:19→10:01)
[2019-07-19] MEDS: ONDANSETRON INJ 4 MG/2 ML VIAL IV PUSH (00:19)
[2019-07-19 06:00] VITALS: BP 136/70; PULSE 95; RESP 16; TEMP 37.4; O2SAT 97
[2019-07-19 06:06] LABS: Hematocrit 31.2 % (37.0-47.0); Mean Corpuscular HGB Conc 32.1 g/dl (32-36); Mean Corpuscular Hemoglobin 27.1 pg (26-34); Mean Corpuscular Volume 84.6 fl (80-100); Mean Platelet Volume 9.4 fl (7.4-10.4); Platelet Count Result 307 k/mm3 (150-375); Red Blood Count 3.69 M/mm3 (4.2-5.4); Red Cell Distribution Width 13.5 % (11.5-14.5); White Blood Count 8.5 K/mm3 (4.5-10.0)
[2019-07-19 06:16] LABS: Blood Urea Nitrogen 6 mg/dL (7-17); Calcium 8.1 mg/dL (8.4-10.2); Carbon Dioxide 26 mmol/L (22-30); Chloride 99 mmol/L (98-107); Estimated CRCL calculation 88 ml/min; Estimated Glomerular Filt Rate > 60; Glucose 74 mg/dL (65-105); Potassium 3.6 mmol/L (3.4-5.0); Sodium 130 mmol/L (137-145)
[2019-07-19] MEDS: LACTATED RINGERS 1,000 ML 100 ML IV CONT (08:05)
[2019-07-19] MEDS: ENOXAPARIN 40 MG/0.4 ML SYRINGE SUB-Q (08:06)
[2019-07-19] MEDS: FAMOTIDINE 20 MG/2 ML VIAL IV PUSH ×2 (08:06→21:05)
--- NOTE | 2019-07-19 12:01 | PM.PNGS ---
Progress Note: A&P Assessment and Plan (1) Carcinoma of cecum: Code(s): C18.0 - Malignant neoplasm of cecum Status: Acute Assessment and Plan: Advance to full liquids this morning. Will advance to soft diet for dinner. Possibly home tomorrow if continuing to do well. Stage IIIc--will refer to Oncology as outpatient. Subjective Subjective Date/Time Seen: 07/19/19 12:01 bowels moving. no nausea any more. still having some pain. Exam GI: Inspection: non-distended and incision (c/d/i) GI Palp: Yes Soft to palpation and Yes Tenderness to palpation present (GI) (mild generalized) Percussion: Yes normal to percussion Auscultation: normal bowel sounds Objective Data Vital Signs Vital Signs: Vital Signs - 24 hr 07/18/19 14:00 07/18/19 22:00 07/19/19 06:00 Temperature 36.7 C 36.9 C 37.4 C Pulse Rate 87 90 95 Respiratory Rate 16 18 16 Blood Pressure 135/62 139/69 136/70 Pulse Oximetry 96 95 97 Intake/Output Intake/Output: Intake & Output 07/16/19 07/17/19 07/18/19 07/19/19 23:59 23:59 23:59 23:59 Intake Total 3260 2760 2720 1050 Output Total 800 1350 350 Balance 2460 1410 2370 1050 Meds/Results Medications: Active Medications Generic Name Dose Route Start Last Admin Trade Name Freq PRN Reason Stop Dose Admin Acetaminophen 650 mg 07/15/19 12:48 Tylenol Tablet PO Q6H PRN Pain Rated 1-3 Hydrocodone Bitart/Acetaminophen 1 tab 07/15/19 12:46 [place] 5-325 Mg PO Q4H PRN Pain Rated 4-6 Hydrocodone Bitart/Acetaminophen 1 tab 07/15/19 12:46 07/15/19 14:24 [place] 10-325 Mg PO 1 tab Q4H PRN Administration Pain Rated 7-10 Enoxaparin Sodium 40 mg 07/15/19 09:00 07/19/19 08:06 Lovenox SUB-Q 40 mg DAILY HORTENCIA Administration Famotidine 20 mg 07/17/19 21:00 07/19/19 08:06 Pepcid Iv IV PUSH 20 mg Q12HR HORTENCIA Administration Hydromorphone HCl 1 mg 07/14/19 15:58 07/19/19 10:01 Dilaudid Inj IV PUSH 1 mg Q2H PRN Administration Pain Rated 7-10 Hydromorphone HCl 0.5 mg 07/14/19 15:58 07/16/19 14:45 Dilaudid Inj IV PUSH 0.5 mg Q2H PRN Administration Pain Rated 4-6 Ondansetron HCl 4 mg 07/14/19 15:58 07/19/19 00:19 Zofran Inj IV PUSH 4 mg Q4H PRN Administration Nausea And Vomiting Promethazine HCl 12.5 mg 07/16/19 20:35 07/18/19 00:17 Phenergan Inj IV PUSH 12.5 mg Q6HR PRN Administration Nausea And Vomiting Radiology Results: ITS Impressions Abdomen/Pelvis CT 07/14/19 10:49 IMPRESSION: 1. Acute appendicitis. Wall thickening of the cecum could be reactive or reflect underlying cecal neoplasm resulting in appendicitis. Surgical consultation is recommended. Chest CT 07/16/19 11:14 IMPRESSION: 1. No evident thoracic metastatic disease. 2. Small bilateral pleural effusions with moderate atelectasis in the bilateral dependent lower lobes. 3. Small amount of pneumoperitoneum in the right upper quadrant likely related to reported recent appendectomy and right hemicolectomy. Abdomen X-Ray 07/17/19 12:30 IMPRESSION: 1. Mildly dilated loops of bowel in the left upper quadrant, likely ileus. Labs Labs: Laboratory Results - last 24 hr 07/19/19 07/19/19 05:37 05:37 WBC 8.5 RBC 3.69 L Hgb 10.0 L Hct 31.2 L MCV 84.6 MCH 27.1 MCHC 32.1 RDW 13.5 Plt Count 307 MPV 9.4 Sodium 130 L Potassium 3.6 Chloride 99 Carbon Dioxide 26 BUN 6 L Creatinine 0.60 L Estim Creat Clear Calc 88 Estimated GFR > 60 Glucose 74 Calcium 8.1 L
[2019-07-19 14:00] VITALS: BP 117/69; PULSE 91; RESP 16; TEMP 37; O2SAT 95
[2019-07-19] MEDS: ACETAMINOPHEN 500 MG TABLET 650 MG PO (15:18)
[2019-07-19 22:00] VITALS: BP 143/67; PULSE 80; RESP 16; TEMP 37.1; O2SAT 95
[2019-07-20 05:59] VITALS: BP 147/72; PULSE 88; RESP 24; TEMP 36.9; O2SAT 97
[2019-07-20] MEDS: ONDANSETRON INJ 4 MG/2 ML VIAL IV PUSH (08:29)
[2019-07-20] MEDS: FAMOTIDINE 20 MG/2 ML VIAL IV PUSH ×2 (08:32→21:31)
[2019-07-20] MEDS: ENOXAPARIN 40 MG/0.4 ML SYRINGE SUB-Q (08:32)
[2019-07-20 10:11] LABS: Hematocrit 32.1 % (37.0-47.0); Hemoglobin 10.3 g/dL (12.0-15.0); Mean Corpuscular HGB Conc 32.1 g/dl (32-36); Mean Corpuscular Hemoglobin 26.7 pg (26-34); Mean Corpuscular Volume 83.2 fl (80-100); Platelet Count Result 345 k/mm3 (150-375); Red Blood Count 3.86 M/mm3 (4.2-5.4); Red Cell Distribution Width 13.5 % (11.5-14.5); White Blood Count 10.9 K/mm3 (4.5-10.0)
[2019-07-20 10:22] LABS: Blood Urea Nitrogen 4 mg/dL (7-17); Calcium 8.4 mg/dL (8.4-10.2); Carbon Dioxide 27 mmol/L (22-30); Chloride 97 mmol/L (98-107); Estimated CRCL calculation 104 ml/min; Estimated Glomerular Filt Rate > 60; Glucose 94 mg/dL (65-105); Potassium 3.4 mmol/L (3.4-5.0); Sodium 131 mmol/L (137-145)
--- NOTE | 2019-07-20 11:39 | PC.NURSE ---
Pt was moaning and yelling from her room this am, night and day nurses entered pts room, pt stated that she couldn't breath that her abdomen felt like it had a lot of pressure in it like she needed to pass gas or have a bowel movement but couldn't do either. Finish Sander checked pts Spo2 which was 95-96% on room air, auscultated abdomen for bowel sounds which were hypoactive. I let pt know I was going to let the doctor. hop strainer MD called, Dr. Cohen called back, let him know the issues, new orders received CBC,BMP, Bisacodyl suppository. Dr. Cohen said he would let Dr. Case know.
--- NOTE | 2019-07-20 12:55 | PM.PNGS ---
Progress Note: A&P Assessment and Plan (1) Carcinoma of cecum: Code(s): C18.0 - Malignant neoplasm of cecum Status: Acute Assessment and Plan: Discussed in depth with patient and . Will try MiraLax instead of a suppository to help as a gentle stool softener and laxative. Will also try some scheduled Ibuprofen so that patient can limit her narcotics. She may shower today and I also encouraged increasing her ambulation to help with bloating. I reviewed the abdominal xray this morning and there is some gas in the bowel but no sign of obstruction. Hopefully this will improve with the adjustments made to her meds and she will feel comfortable discharging tomorrow. Subjective Subjective Date/Time Seen: 07/20/19 12:55 Multiple bowel movements yesterday, but this morning she was feeling more bloated and having more generalized pain. She is very tearful and says she's tired of being here and just wants to go home. Exam GI: Inspection: incision (c/d/i) GI Palp: Yes Soft to palpation, No Tenderness to palpation present (GI), No Guarding due to palpation present (GI) and Yes Other GI palpation findings present (mildly distended) Auscultation: Hypoactive bowel sounds present Objective Data Vital Signs Vital Signs: Vital Signs - 24 hr 07/19/19 14:00 07/19/19 22:00 07/20/19 05:59 Temperature 37.0 C 37.1 C 36.9 C Pulse Rate 91 80 88 Respiratory Rate 16 16 24 H Blood Pressure 117/69 143/67 H 147/72 H Pulse Oximetry 95 95 97 Intake/Output Intake/Output: Intake & Output 07/17/19 07/18/19 07/19/19 07/20/19 23:59 23:59 23:59 23:59 Intake Total 2760 2720 2410 200 Output Total 1350 350 300 Balance 1410 2370 2410 -100 Meds/Results Medications: Active Medications Generic Name Dose Route Start Last Admin Trade Name Freq PRN Reason Stop Dose Admin Acetaminophen 650 mg 07/19/19 15:25 Tylenol Tablet PO Q6H PRN Pain Rated 1-3 Hydrocodone Bitart/Acetaminophen 1 tab 07/15/19 12:46 07/20/19 08:29 [place] 5-325 Mg PO 1 tab Q4H PRN Administration Pain Rated 4-6 Hydrocodone Bitart/Acetaminophen 1 tab 07/15/19 12:46 07/15/19 14:24 [place] 10-325 Mg PO 1 tab Q4H PRN Administration Pain Rated 7-10 Enoxaparin Sodium 40 mg 07/15/19 09:00 07/20/19 08:32 Lovenox SUB-Q 40 mg DAILY HORTENCIA Administration Famotidine 20 mg 07/17/19 21:00 07/20/19 08:32 Pepcid Iv IV PUSH 20 mg Q12HR HORTENCIA Administration Hydromorphone HCl 1 mg 07/14/19 15:58 07/19/19 10:01 Dilaudid Inj IV PUSH 1 mg Q2H PRN Administration Pain Rated 7-10 Hydromorphone HCl 0.5 mg 07/14/19 15:58 07/16/19 14:45 Dilaudid Inj IV PUSH 0.5 mg Q2H PRN Administration Pain Rated 4-6 Ibuprofen 800 mg 07/20/19 12:45 Motrin PO Q8HR HORTENCIA Ondansetron HCl 4 mg 07/14/19 15:58 07/20/19 08:29 Zofran Inj IV PUSH 4 mg Q4H PRN Administration Nausea And Vomiting Polyethylene Glycol 17 gm 07/20/19 12:50 Miralax PO QAM HORTENCIA Promethazine HCl 12.5 mg 07/16/19 20:35 07/18/19 00:17 Phenergan Inj IV PUSH 12.5 mg Q6HR PRN Administration Nausea And Vomiting Radiology Results: ITS Impressions Abdomen/Pelvis CT 07/14/19 10:49 IMPRESSION: 1. Acute appendicitis. Wall thickening of the cecum could be reactive or reflect underlying cecal neoplasm resulting in appendicitis. Surgical consultation is recommended. Chest CT 07/16/19 11:14 IMPRESSION: 1. No evident thoracic metastatic disease. 2. Small bilateral pleural effusions with moderate atelectasis in the bilateral dependent lower lobes. 3. Small amount of pneumoperitoneum in the right upper quadrant likely related to reported recent appendectomy and right hemicolectomy. Abdomen X-Ray 07/20/19 10:34 IMPRESSION: 1. Nonobstructive bowel gas pattern. Labs Labs: Laboratory Results - last 24 hr 07/20/19 07/20/19 10:00 10:00 WBC 10.9 H RBC 3.86 L
[2019-07-20] MEDS: polyethylene glycoL 3350 17 GM POWD.PACK PO (13:19)
[2019-07-20] MEDS: IBUPROFEN 400 MG TABLET 800 MG PO ×2 (13:20→21:30)
[2019-07-20 14:00] VITALS: BP 120/44; PULSE 91; RESP 18; TEMP 36.7; O2SAT 99
[2019-07-20] MEDS: SIMETHICONE 80 MG TAB.CHEW PO (19:04)
[2019-07-20 21:32] VITALS: BP 144/63; PULSE 104; RESP 20; TEMP 36.5; O2SAT 96
[2019-07-21] MEDS: IBUPROFEN 400 MG TABLET 800 MG PO ×2 (05:39→13:27)
[2019-07-21 05:43] LABS: Basophils Percent Auto 0.2 % (0.2-1.2); Eosinophils Absolute Auto 0.3 K/mm3 (0-0.3); Eosinophils Percent Auto 3.5 % (0-4.4); Hematocrit 30.4 % (37.0-47.0); Hemoglobin 9.8 g/dL (12.0-15.0); Immature Granulocyte Absolute 0.09 K/mm3 (0.00-0.031); Lymphocytes Absolute Auto 1.22 K/mm3 (0.9-3.2); Lymphocytes Percent Auto 14.2 % (18.3-44.2); Mean Corpuscular HGB Conc 32.2 g/dl (32-36); Mean Corpuscular Hemoglobin 26.8 pg (26-34); Mean Corpuscular Volume 83.1 fl (80-100); Mean Platelet Volume 8.8 fl (7.4-10.4); Monocytes Absolute Auto 0.5 K/mm3 (0.1-0.6); Neutrophils Absolute Auto 6.5 K/mm3 (1.3-6.7); Neutrophils Percent Auto 75.1 % (45.5-73.1); Platelet Count Result 354 k/mm3 (150-375); Red Blood Count 3.66 M/mm3 (4.2-5.4); Red Cell Distribution Width 13.4 % (11.5-14.5); White Blood Count 8.6 K/mm3 (4.5-10.0)
[2019-07-21 05:52] LABS: Blood Urea Nitrogen 5 mg/dL (7-17); Calcium 8.1 mg/dL (8.4-10.2); Carbon Dioxide 28 mmol/L (22-30); Chloride 98 mmol/L (98-107); Estimated CRCL calculation 104 ml/min; Estimated Glomerular Filt Rate > 60; Glucose 82 mg/dL (65-105); Potassium 3.2 mmol/L (3.4-5.0); Sodium 131 mmol/L (137-145)
[2019-07-21 06:22] VITALS: BP 129/56; PULSE 78; RESP 20; TEMP 36.4; O2SAT 98
[2019-07-21] MEDS: polyethylene glycoL 3350 17 GM POWD.PACK PO (08:50)
[2019-07-21] MEDS: FAMOTIDINE 20 MG/2 ML VIAL IV PUSH (08:51)
[2019-07-21] MEDS: SIMETHICONE 80 MG TAB.CHEW PO ×2 (08:53→13:26)
[2019-07-21] MEDS: POTASSIUM CHLORIDE 20 MEQ TABLET 40 MEQ PO (10:52)
--- NOTE | 2019-07-21 12:18 | PM.DS ---
DS: Diagnosis Admitting Diagnosis Admitting Diagnosis: Acute appendicitis with perforation and localized peritonitis, with abscess Discharge Diagnosis (1) Carcinoma of cecum: Code(s): C18.0 - Malignant neoplasm of cecum Status: Acute Assessment and Plan: 07/14/19 Hand-assisted laparoscopic right hemicolectomy with ileocolic anastomosis by Dr. Case. CEA 45. CT chest and abdomen/pelvis showed no evidence of metastatic disease. Pathology showed T4bN2a colon cancer, Stage IIIc. Pathology of the right colon with terminal ileum showed moderately differentiated cecal adenocarcinoma, perforated, invading through the muscularis propria and involving serosal surface and terminal ileum, extending to radial margine with acute serositis. Proximal and distal resection margins and omentum free of neoplasm. Metastatic adenocarcinoma consistent with cecal primary in 6 of 20 lymph nodes. The appendix showed colonic adenocarcinoma involving the proximal 1/3 most likely by direct extension. Pathology was discussed in detail with the patient during her hospitalization by Dr. Case. She will need an Oncology referral, which our office will set up in the next few weeks. We will also follow-up with the patient in 2 weeks via TeleMed with Dr. Case. (2) Acute appendicitis: Qualifiers: Acute appendicitis type: with localized peritonitis Appendicitis abscess presence: with abscess Appendicitis gangrene presence: without gangrene Appendicitis perforation presence: unspecified whether perforation present Qualified Code(s): K35.33 - Acute appendicitis with perforation and localized peritonitis, with abscess Code(s): K35.80 - Unspecified acute appendicitis Status: Acute Assessment and Plan: Appendicitis likely caused by obstructed lumen from cecal mass. Status post MEHRDAD right hemicolectomy, see plan above. (3) Hypokalemia: Code(s): E87.6 - Hypokalemia Status: Acute Assessment and Plan: Replaced with oral potassium today. Patient now on a regular/soft diet and this should normalize once taking in a typical oral diet. DS: Summary Hospital Course Reason for hospitalization: Luba Hernandez is a 58 year old female who presented to the emergency department on 07/14/19 with complaints of right lower quadrant pain with nausea and vomiting. She had never had a colonoscopy. CT scan of the abdomen showed evidence of acute appendicitis with surrounding pericecal inflammation with a fluid collection near the base of the appendix, which could represent perforation and possible abscess. Our service was consulted and the patient was admitted to the hospital for surgical evaluation. Hospital Course: After evaluating the patient and discussing treatment options, the decision was made to proceed with a laparoscopic appendectomy, possible open, by Dr. Case on 07/14/19. Intraoperatively, the appendix appeared to be matted to the cecum with a grossly malignant appearance. After removing the appendix she was found to have a tumor that involved the cecum causing full-thickness erosion through the wall of the cecum with perforation. Dr. Case then converted to a MEHRDAD right hemicoloectomy with some peritoneum of the right right pelvic sidewall excised with the right colon. This was all sent for pathology. The patient was transferred to the medical floor post-operatively. She developed a post-operative ileus, which was managed with bowel rest, IV fluids, analgesics, and antiemetics. Did not require NG tube decompression. This resolved and she did improve. She had some abdominal distention and bloating and an abodminal x-ray was repeated yesterday, which showed a normal bowel gas pattern. She was started on Miralax daily and her bowels have moved today. Nausea and vomiting have completely resolved. Her post-operative incisional pain is well-controlled. She is now tolerating a soft diet and her bowels have moved 3 times today. Denies any bloati
== END 2019-07-21 13:57 | disposition home or self-care (01) | DRG 329 ==
LOC: ANHED 11:27 → ANHSURGERY 11:45 → ANH3MEDSUR 16:04
PROVIDERS: Nurse Practitioner Family; Physician Assistant; Surgery; Admitting Provider Surgery; Emergency Provider Emergency Medicine; PCP Internal Medicine; Visit Provider Surgery
PROC: 0DTJ4ZZ Resection of Appendix, Percutaneous Endoscopic Approach (ICD-10-PCS; CPT 44970; principal; 2019-07-14 12:00)
DX: C18.0 Malignant neoplasm of cecum (principal); K35.33 Acute appendicitis with perforation, localized peritonitis, and gangrene, with abscess; C78.5 Secondary malignant neoplasm of large intestine and rectum; G47.33 Obstructive sleep apnea (adult) (pediatric); Z77.22 Contact with and (suspected) exposure to environmental tobacco smoke (acute) (chronic); R35.0 Frequency of micturition; E87.6 Hypokalemia
CPT/HCPCS: 36415; 71260; 74019; 74177; 80048; 80053; 81001; 81025; 81210; 81275; 81276; 81301; 81311; 82378; 83605; 83690; 83735; 85025; 85027; 88304; 88309; 88381; 96361; 96365; 96375; 99285; A9270; J0131; J1170; J1650; J1741; J2212; J2250; J2270; J2405; J2543; J2550; J2704; J2710; J3010; J3480; J7030; J7120; Q9967

== ENCOUNTER 2019-08-11 01:06 | Day surgery (SDC) | payer OTHER, SELFPAY ==
[2019-08-09 16:50] VITALS: BMI 28.8
--- NOTE | ~2019-08-11 | XR_ITS ---
EXAMINATION: XR fl guide central line place INDICATION: Port-A-Cath insertion TECHNIQUE: A single fluoroscopic image is submitted for review. Fluoroscopy exposure time was 51.9 se conds. The DAP for this procedure was 0.186 mGycm2. COMPARISON: None available FINDINGS: Fluoroscopic image demonstrates a partially imaged right internal jugular Port-A-Cath. Plea se refer to procedure note for full details. IMPRESSION: Partially imaged right internal jugular Port-A-Cath. Please refer to procedure note for f ull details. Reviewed, dictated and finalized at location A. IMPRESSION: Partially imaged right internal jugular Port-A-Cath. Please refer t o procedure note for full details.
--- NOTE | ~2019-08-11 | XR_ITS ---
XR chest port-a-cath/central DATE: 08/11/2019 15:07 INDICATION: Right Port-A-Cath catheter insertion TECHNIQUE: Portable upright AP chest on 08/11/2019 at 1501 hours COMPARISON: 09/12/2011 two-view chest 07/16/2019 CT chest FINDINGS: Normal heart size. There is bibasilar atelectasis, mild elevation of the right leaf of the diaphragm. Right internal jugular Port-A-Cath catheter tip overlies the caudal aspect of the superior vena cava near superior cavoatrial junction. No pneumothorax is detected. Diffuse osteopenia. IMPRESSION: Bibasilar atelectasis Right Port-A-Cath catheter tip near superior cavoatrial junction; no evidence of pneumothorax Reviewed, dictated and finalized at Location A. Reviewed, dictated and finalized at location A. IMPRESSION: Bibasilar atelectasis Right Port-A-Cath catheter tip near superior cavoatrial junction; no evidence o f pneumothorax
[2019-08-11 11:00] VITALS: BMI 28.8
--- NOTE | 2019-08-11 11:06 | P.PNAN_ITS ---
Anes - Initial Pre Proc Eval Procedure: Operation Date: 08/11/19 13:00 Proposed Procedures p Insertion Thomas Cath - Dennis Case DO Date/Time: 08/11/19 11:06 Surgeon: Dennis Case DO Pre Op Diagnosis: Ascending Colon Ca Patient Data Age: 58 Gender: F Height: 5 ft 2.5 in Weight: 72.5 kg Allergies Allergy/AdvReac Type Severity Reaction Status Date / Time No Known Allergies Allergy Unknown Verified 08/11/19 12:42 Home Medications Medication Instructions Recorded Confirmed Type No Home Medications 03/19/19 08/09/19 History Patient hx anesthesia problems: none Family hx anesthesia problems: none [facility] Past Medical History Medical History (Updated 08/11/19 @ 13:10 by Dennis Case DO) Carcinoma of cecum Mitral valve prolapse TONY (obstructive sleep apnea) Surgical History Surgical History History of dilatation and curettage History of laparoscopy Social History Social History Smoking status: Never smoker Second hand tobacco smoke exposure: Yes Alcohol intake: current Drinks per week: 2 Substance use: never Spiritual care concerns: No Agree to blood products: Yes Anes - Eval Final PreProcedure Day of Procedure 08/11/19 11:06 Patient weight: normal Heart: regular rate and rhythm Lungs: clear to auscultation Airway: Mallampati scale class II Neurological: alert and oriented Last oral intake: >/= 8 hours ASA classification: III Emergent: no Anesthetic plan: proceed Anesthesia type and monitoring: general GIVS and standard monitoring Informed Consent: The patient's anesthetic plan and its attendant risks and benefits were discussed with the patient/family/POA. Questions were solicited and answers provided to the satisfaction of the patient/family/POA.
[2019-08-11 11:25] VITALS: BP 124/73; PULSE 84; RESP 16; TEMP 36.4; O2SAT 100
[2019-08-11] MEDS: LACTATED RINGERS 1,000 ML 30 ML IV CONT (12:15)
[2019-08-11] MEDS: IBUPROFEN IV 800 MG/200 ML 800 MG/200 ML BAG 400 MG IVPB (12:20)
[2019-08-11 12:42] LABS: Prothrombin Time 12.5 Seconds (11.1-14.7)
[2019-08-11 12:43] LABS: Partial Thromboplastin Time 27.8 SECONDS (22.3-36.8)
--- NOTE | 2019-08-11 13:08 | PM.IMHP ---
H&P: HPI History of Present Illness Chief complaint: Ascending Colon Ca Narrative: Luba Hernandez is a 58 year old female with a recent diagnosis of colon cancer. She is scheduled to start chemo on August 21. [facility] Past Medical History Medical History Carcinoma of cecum Mitral valve prolapse TONY (obstructive sleep apnea) Surgical History Surgical History History of dilatation and curettage History of laparoscopy Social History Social History Smoking status: Never smoker Second hand tobacco smoke exposure: Yes Alcohol intake: current Drinks per week: 2 Substance use: never Spiritual care concerns: No Agree to blood products: Yes Meds Home Medications and Allergies Home Medications Medication Instructions Recorded Confirmed Type No Home Medications 03/19/19 08/09/19 History Allergies Allergy/AdvReac Type Severity Reaction Status Date / Time No Known Allergies Allergy Unknown Verified 08/11/19 12:42 Vital Signs Vital Signs - 24 hr 08/11/19 11:25 Temperature 36.4 C Pulse Rate 84 Respiratory Rate 16 Blood Pressure 124/73 Pulse Oximetry 100 Exam Const: General: alert; No acute distress Orientation/consciousness: patient oriented x3 Limitations: no limitations HENMT: Head: normocephalic and atraumatic Ears: hearing grossly normal bilaterally General nose exam: Normal external nose present and Normal nares present Mouth: Yes Normal oral and palatal mucosa present and Yes moist mucous membranes Eyes: General: appearance normal, both eyes and all related structures Conjunctivae: conjunctivae normal Sclera: sclerae normal Pupils: Equal, round and reactive pupils present EOM: EOMs intact bilaterally Neck: Neck: normal visual inspection, full ROM, no lymphadenopathy, supple and no JVD Lymphatic: no lymphadenopathy noted Chest: Chest palpation & inspection: normal inspection of the chest Resp: Effort & Inspection: normal respiratory effort and able to speak in complete sentences Auscultation: clear to auscultation bilaterally Percussion: percussion normal Cardio: Jugular venous distension: no JVD Rate: regular rate Rhythm: regular rhythm Heart sounds: S1 normal heart sound present and S2 normal heart sound present Peripheral pulses: Peripheral pulses 2+ throughout GI: Inspection: normal to inspection GI Palp: No abdominal tenderness, Yes Soft to palpation, No Guarding due to palpation present (GI), No Hernia present and No Rebound tenderness present Percussion: Yes normal to percussion Auscultation: normal bowel sounds : General: Yes no CVA tenderness Back/Spine/Pelvis: Back: no CVA tenderness Skin: General skin exam: normal color and dry skin Neuro: General: patient oriented x3, gait normal, moves all extremities, no focal motor deficits and CN's II-XI intact bilaterally Cranial nerves: Yes Equal, round and reactive pupils present Speech: normal speech Extrem: General: normal to inspection and capillary refill normal Assessment and Plan Assessment and plan (1) Carcinoma of cecum: Code(s): C18.0 - Malignant neoplasm of cecum Status: Acute Assessment and Plan: I have recommended Port-a-cath Placement. I have discussed the procedure, risks, benefits, and alternatives with the patient. All questions answered. No changes since last seen in office.
[2019-08-11] MEDS: ceFAZolin 2 GM/D5W 50 ML 2 GM/50 ML BAG IVPB (13:56)
[2019-08-11] MEDS: HEPARIN SODIUM 5,000 UNITS/ML VIAL 5000 UNITS IRRIGATION (14:22)
[2019-08-11] MEDS: LIDO 1%/EPINEPHRINE 1:100,000 20 ML VIAL INFILTRATE (14:23)
[2019-08-11] MEDS: HEPARIN SODIUM, PORCINE 10,000 UNITS/10 ML VIAL 10000 UNITS IV PUSH (14:24)
--- NOTE | 2019-08-11 14:46 | PM.PROC ---
Procedure Note - Detailed Date of procedure: 08/11/19 Pre-op diagnosis: Ascending Colon Ca Post-op diagnosis: same Procedure performed: Right internal jugular Port-A-Cath placement using ultrasound and fluoroscopic guidance Description of procedure: Procedure as well as risks, benefits, and alternatives were discussed with patient. Written consent was obtained and placed in chart prior to procedure. Patient was brought back to surgical suite. Was placed supine on operating table. Time-out was done confirm patient procedure. IV sedation was then administered by the Anesthesia Department. The chest and neck area was prepped and draped in sterile fashion using chlorhexidine prep. Patient was placed in Trendelenburg position. SonoSite ultrasound was used to identify the right internal jugular vein. It was visualized as a compressible vessel just lateral to the carotid artery. 1% lidocaine with epinephrine was infiltrated directly over the vessel under ultrasound guidance. An 18 gauge introducer needle was then advanced under ultrasound guidance directly into the right internal jugular vein. Dark nonpulsatile blood was aspirated. A 0.035 in guidewire was then advanced through the needle under fluoroscopic guidance. The guidewire was visualized advancing all the way down into the superior vena cava. 1% lidocaine with epinephrine was then infiltrated on the right anterior chest and along the tract up to the guidewire insertion site. A 3 cm incision was made with a 15 blade scalpel, and electrocautery was then used for dissection down through the subcutaneous tissue to the pectoral fascia. A pocket was created just inferior to the incision using blunt dissection. A small casey incision was then also made at the insertion site at the neck. The tunneler was then advanced from the chest incision up to the neck incision and the catheter tubing was brought up through this tract. The dilator and sheath were then advanced over the guidewire under fluoroscopic visualization. The dilator and guidewire were then removed leaving the sheath in place. The catheter tubing was then advanced through the sheath under fluoroscopic guidance. The sheath was unsnapped and carefully peeled away. The catheter tubing was released underneath the neck incision. Fluoroscopy was used to confirm proper placement of the catheter tubing and no kinks along its path. The catheter was then cut to proper length and secured to the port. The port was then accessed with a Sanford needle and aspirated and flushed with heparinized saline. The port function with ease. The port was then hep-locked with Hep-Lock solution. The port was then placed within the pocket that was created, and was secured to the fascia using 3 0 Prolene simple interrupted sutures. The patient was flattened out in bed. Ebenezer's fascia was reapproximated using 3 0 Vicryl simple interrupted sutures. The skin of the incisions was then approximated using 4-0 Monocryl subcuticular suture. Exofin glue was then applied on top. The patient was then awakened from anesthesia and transferred to recovery. Implants: [employer] Port Anesthesia: MAC and local (1% lidocaine with epinephrine) Surgeon: Dennis Case DO Estimated blood loss (mL): 5 Complications: No immediate complications Condition: stable Disposition: same day Findings: This is a 58-year-old woman who presented with a recent finding of advanced colon cancer. She underwent right hemicolectomy and has been doing well postoperatively. She was referred to Oncology for evaluation. Dr. Trejo has recommended chemotherapy and she is in need of port placement. Ultrasound guidance was used to identify the right internal jugular vein. This was identified as a compressible vessel directly lateral to the pulsatile carotid artery. An 18 gauge introducer needle was inserted under ultrasound guidance. Fluoroscopy was then used to guide advancement of the guidewire. The B
[2019-08-11 14:54] VITALS: BP 117/54; PULSE 92; RESP 14; TEMP 36.4; O2SAT 100
--- NOTE | 2019-08-11 15:03 | SUR.PHASEII ---
1503- CHEST X RAY DONE. DR. OVERTON REVIEWED X RAY AND STATED PLACEMENT GOOD.
[2019-08-11 15:13] VITALS: BP 132/67; PULSE 96; RESP 15; O2SAT 100
== END 2019-08-11 15:49 | disposition home or self-care (01) ==
PROVIDERS: PCP Internal Medicine; Visit Provider Surgery
PROC: (CPT 36561; principal; 2019-08-11 13:00)
DX: C18.2 Malignant neoplasm of ascending colon (principal); I34.1 Nonrheumatic mitral (valve) prolapse; G47.33 Obstructive sleep apnea (adult) (pediatric)
CPT/HCPCS: 36561; 36415; 77001; 85610; 85730; C1788; J0690; J1100; J1644; J1741; J2250; J2405; J2704; J3010; J7030; J7120

== ENCOUNTER 2019-08-22 11:44 | Outpatient (CLI) | payer OTHER, SELFPAY ==
--- NOTE | ~2019-08-22 | XR_ITS ---
XR chest 2V 08/22/2019 12:02 Indication: Malignant neoplasm of colon Procedure: 2 view chest Comparison: 08/11/2019 Findings: Portacatheter tip in the SVC. Heart size normal. There is right basilar infiltrate which ma y represent atelectasis or developing pneumonia. No pleural effusion. No edema. No pneumothorax. No a cute osseous abnormality. Impression: 1: Right basilar infiltrate, atelectasis versus pneumonia. Reviewed, dictated and finalized at location A. Impression: 1: Right basilar infiltrate, atelectasis versus pneumonia.
== END 2019-08-22 11:45 | disposition home or self-care (01) ==
PROVIDERS: PCP Internal Medicine; Visit Provider Surgery
DX: C18.9 Malignant neoplasm of colon, unspecified (principal); R91.8 Other nonspecific abnormal finding of lung field
CPT/HCPCS: 71046

== ENCOUNTER 2019-10-02 23:15 | Inpatient (IN) | payer OTHER, SELFPAY ==
--- NOTE | ~2019-10-02 | MR_ITS ---
EXAMINATION: MR brain/brain stem wo/w con DATE: 10/03/2019 13:23 INDICATION: Dysarthria. Right-sided heaviness. Altered mental status. TECHNIQUE: Magnetic resonance imaging (MRI) of the brain and brainstem was performed without and with 14 mL MultiHance intravenous contrast. Sequences included sagittal and axial T1-weighted FSE, axial diffusion-weighted FS EPI, axial T2*-weighted GRE, axial T2-weighted FLAIR Propeller, and axial T2-we ighted Propeller. Postcontrast sequences included axial and coronal T1-weighted FSE. Apparent diffusi on coefficient (ADC) maps were created. COMPARISON: Head CT 10/02/2019 FINDINGS: There is an acute infarct involving the right caudate nucleus. There is no intracranial hem orrhage or abnormal mass lesion. There are scattered areas of nonspecific increased T2-weighted signa l intensity in the cerebral white matter, which is within normal limits for the patient's age. The ve ntricles are normal in size. The orbits are normal. The paranasal sinuses are clear. The mastoid air cells are normal. IMPRESSION: 1. Acute infarct in the right caudate nucleus. Reviewed, dictated and finalized at location A.
--- NOTE | ~2019-10-02 | XR_ITS ---
EXAMINATION: XR chest 1V portable DATE: 10/02/2019 23:43 INDICATION: Stroke with altered mental status TECHNIQUE: frontal view of the chest was obtained. COMPARISON: Chest radiograph dated 08/22/2019 FINDINGS: Unchanged mild elevation of the right hemidiaphragm. Linear discoid atelectasis at the left lower wally g zone. No pulmonary edema, pleural effusion or pneumothorax. The cardiomediastinal silhouette is nor mal. Right internal jugular central venous catheter with distal tip at the caudal superior vena cava. IMPRESSION: 1. Mild left basilar atelectasis. Reviewed, dictated and finalized at location A.
--- NOTE | ~2019-10-02 | CT_ITS ---
EXAMINATION: CT brain wo con DATE: 10/02/2019 23:23 INDICATION: Altered mental status. Slurred speech. TECHNIQUE: Computed tomography (CT) of the head was performed without intravenous contrast. Sagittal and coronal reconstructions were performed. The mA was adjusted according to patient size. Iterative reconstruction technique was employed. The dose-length product was 605.33 mGy-cm. COMPARISON: None FINDINGS: No acute intracranial hemorrhage, acute infarction or abnormal extra axial fluid collection. Ventricl es are normal and symmetric. No mass/mass effect. The orbits, paranasal sinuses and mastoid air cells are normal. IMPRESSION: 1. No acute intracranial process. Dr. Perez discussed these findings with Dr. Ha at 11:26 P M. Reviewed, dictated and finalized at location A. IMPRESSION: 1. No acute intracranial process. Dr. Perez discussed these findings with Dr Leona Ha at 11:26 PM.
--- NOTE | ~2019-10-02 | CT_ITS ---
EXAMINATION: CTA BRAIN/CAROTID DATE: 10/03/2019 17:29 INDICATION: Acute stroke TECHNIQUE: Computed tomographic angiography (CTA) of the head and neck was performed with 100 mL Omni paque-350 intravenous contrast. Multiplanar reconstructions and maximum intensity projection 3D-recon structions of the carotid arteries and of the intracranial arteries were created by the technologist on a separate workstation. Precontrast CT of the head was also obtained. Automated exposure control and iterative reconstruction technique were employed.The dose-length product was 1606.25 mGy-cm. COMPARISON: Brain MR dated 10/03/[address] dated 10/02/2019 FINDINGS: Carotid arteries: Aortic arch is normal in caliber with no dissection. No evident atherosclerotic plaque with 0% stenos is of the right and left carotid bulbs relative to normal distal artery lumen diameter (NASCET criter ia). No evident atherosclerotic plaque or stenosis along the extracranial vertebral arteries. Right i nternal jugular central venous port catheter which extends into the midsuperior vena cava and beyond the inferior margin of the field of imaging. Mild cervical and upper thoracic spondylosis. Head: There is a new small region of decreased attenuation along the right caudate nucleus corresponding to the region of restricted diffusion consistent with cytotoxic edema in the setting of acute infarct. No acute intracranial hemorrhage or abnormal extra axial fluid collection. There is additional unchan ged mild scattered white matter hypoattenuation consistent with chronic small vessel ischemic disease . Ventricles are normal and symmetric. No mass/mass effect. The orbits, paranasal sinuses and mastoi d air cells are normal. Intracranial arteries There is no hemodynamically significant stenosis in the vertebral, basilar and internal carotid arter ies. Vertebral arteries are codominant. There are no aneurysms identified. Both A1 and P1 segments a re patent. There is also a patent right posterior communicating artery. Cerebral arterial arborizatio n appears symmetric. IMPRESSION: 1. New small region of cytotoxic edema in the right caudate nucleus corresponding to the region of re stricted diffusion on prior MRI consistent with acute infarct. 2. No evident atherosclerotic plaque with 0% stenosis of the left or right carotid bulbs relative to normal distal artery lumen diameter (NASCET criteria). 3. Normal cerebral angiogram. Reviewed, dictated and finalized at location A. IMPRESSION: 1. New small region of cytotoxic edema in the right caudate nucleus correspondi ng to the region of restricted diffusion on prior MRI consistent with acute inf arct. 2. No evident atherosclerotic plaque with 0% stenosis of the left or right ball tid bulbs relative to normal distal artery lumen diameter (NASCET criteria). 3. Normal cerebral angiogram.
[2019-10-02 23:21] VITALS: BP 148/73; PULSE 108; RESP 20; TEMP 36.4; O2SAT 100
--- NOTE | 2019-10-02 23:21 | ECG_ITS ---
Measurements Intervals [place] Rate: 103 P: 55 IN: 119 QRS: 11 QRSD: 85 T: 69 QT: 348 QTc: 456 Interpretive Statements SINUS TACHYCARDIA WITH SHORT IN INTERVAL BORDERLINE ST-T WAVE ABNORMALITY- DIFFUSE LEADS BASELINE ARTIFACT- I, II, III, AVR, AVL, AVF, V1-V6 ABNORMAL ECG Electronically Signed On 10-03-2019 6:58:14 CDT by Andre Callahan D.O.
[2019-10-02 23:24] VITALS: BP 148/73; PULSE 102; RESP 20; TEMP 36.4; O2SAT 100
--- NOTE | 2019-10-02 23:27 | ED.NEUROSD ---
HPI - Neuro Symptoms/Deficit General Chief Complaint: Suspected CVA Stated Complaint: poss cva Time Seen by Provider: 10/02/19 23:27 History of Present Illness HPI Narrative: 58 yo female w/ h/o cancer of the cecum currently on chemotherapy BIBEMS for suspected stroke. She reports that tonight she tried to get up and her right leg felt heavy and she had to lower herself to the ground. She then notes that the right side of her jaw became tight and she was not able to speak and she started drooling. Her noted left facial droop. This all started about 1 hour prior to arrival. On arrival here most symptoms have dissipated. She says that she continues to feel strange and tingly and she is having carpal spasms. Related Data Home Medications Medication Instructions Recorded Confirmed acetaminophen [Tylenol] 325 mg PO ONCE PRN 09/27/19 10/03/19 ibuprofen [Advil] 200 mg PO Q6H PRN 09/27/19 10/03/19 lorazepam [Ativan] 1 mg PRN PRN 09/27/19 10/03/19 pantoprazole [Protonix] 40 mg PO QAM 09/27/19 10/03/19 prochlorperazine maleate 10 mg PO Q6H PRN 09/27/19 10/03/19 [Compazine] Allergies Allergy/AdvReac Type Severity Reaction Status Date / Time No Known Allergies Allergy Unknown Verified 10/02/19 23:48 Review of Systems Review of Systems: All systems reviewed & are unremarkable except as noted in HPI and below Constitutional: Constitutional: Denies fever(s) and Reports weakness Eyes: Eyes: Denies change in vision Cardiovascular: Cardiovascular: Denies chest pain Respiratory: Respiratory: Denies dyspnea Gastrointestinal: Gastrointestinal: Denies abdominal pain Genitourinary: Genitourinary: Reports urinary incontinence Neurologic: Reports focal weakness and Reports numbness PMFSH Past Medical History Medical History Carcinoma of cecum Mitral valve prolapse TONY (obstructive sleep apnea) Surgical History Surgical History History of dilatation and curettage History of laparoscopy Social History Social History Smoking status: Never smoker Second hand tobacco smoke exposure: Yes Alcohol intake: former Drinks per week: 1 Substance use: never Substance use type: does not use Gender identity (if verbalized by the patient): Female Spiritual care concerns: No Agree to blood products: Yes Exam Const: General: no acute distress, alert and ill appearing Orientation/consciousness: patient oriented x3 HENMT: Mouth: Yes dry mucous membranes Eyes: Pupils: Equal, round and reactive pupils present Resp: Effort & Inspection: normal respiratory effort and tachypneic Cardio: Rate: tachycardic Rhythm: regular rhythm GI: GI Palp: Yes Soft to palpation and No Tenderness to palpation present (GI) Skin: General skin exam: normal color Neuro: General: patient oriented x3, moves all extremities and CN's II-XI intact bilaterally Speech: normal speech Other: Mild facial asymmetry(reported as normal) active carpal spasm Strength grossly normal throughout Course Vital Signs Vital signs: Vital Signs Temperature 36.4 C 10/02/19 23:21 Pulse Rate 108 H 10/02/19 23:21 Respiratory Rate 20 10/02/19 23:21 Blood Pressure 148/73 H 10/02/19 23:21 Pulse Oximetry 100 10/02/19 23:21 Temperature 36.1 C L 10/03/19 03:07 Pulse Rate 109 H 10/03/19 03:07 Respiratory Rate 18 10/03/19 03:07 Blood Pressure 112/47 L 10/03/19 03:07 Pulse Oximetry 98 10/03/19 03:07 MDM - Neuro Symptoms/Deficit MDM Narrative Medical decision making narrative: Symptoms are bilateral and nonfocal making stroke less likely. Difficult to full assess due to the fact that they had nearly resolved prior to arrival. She is not a good TPA candidate due to uncertainty in diagnosis, rapidly improving and now minor symptoms. I will plan to adm
[2019-10-02 23:37] VITALS: PULSE 115; RESP 12
--- NOTE | 2019-10-02 23:40 | PC.NURSE ---
Patient's bedside glucose was 99.
[2019-10-02 23:42] LABS: Glucose Point of Care 99 (65-105)
[2019-10-02 23:44] LABS: Hematocrit 42.7 % (37.0-47.0); Hemoglobin 13.9 g/dL (12.0-15.0); Mean Corpuscular HGB Conc 32.6 g/dl (32-36); Mean Corpuscular Hemoglobin 26.3 pg (26-34); Mean Corpuscular Volume 80.9 fl (80-100); Mean Platelet Volume 9.8 fl (7.4-10.4); Platelet Count Result 144 k/mm3 (150-375); Red Blood Count 5.28 M/mm3 (4.2-5.4); Red Cell Distribution Width 17.1 % (11.5-14.5); White Blood Count 14.6 K/mm3 (4.5-10.0)
[2019-10-02] MEDS: SODIUM CHLORIDE 0.9% IV 1,000 ML 999 ML IV CONT (23:44)
[2019-10-02 23:45] VITALS: BP 129/82; PULSE 109; RESP 23; O2SAT 100
[2019-10-02 23:46] VITALS: PULSE 107; RESP 23; O2SAT 99
[2019-10-02 23:55] LABS: Blood Urea Nitrogen 15 mg/dL (7-17); Calcium 9.6 mg/dL (8.4-10.2); Carbon Dioxide 27 mmol/L (22-30); Chloride 98 mmol/L (98-107); Estimated CRCL calculation 57 ml/min; Estimated Glomerular Filt Rate > 60; Glucose 116 mg/dL (65-105); Potassium 4.5 mmol/L (3.4-5.0); Sodium 132 mmol/L (137-145)
[2019-10-02 23:58] LABS: INR 1.1
[2019-10-02 23:59] LABS: Partial Thromboplastin Time 23.1 SECONDS (22.3-36.8)
[2019-10-03] VITALS (26 sets, daily range): BP systolic 112–150; BP diastolic 47–82; PULSE 94–119; RESP 12–25; TEMP 36.1–37.1; O2SAT 96–100; BMI 28.1
--- NOTE | 2019-10-03 | ECHO_ITS ---
Patient Info Name: Luba Hernandez Age: 58 years : 1960 Gender: Female Ht: 62 in Wt: 154 lbs BSA: 1.77 m2 HR: 100 bpm BP: 150 / 82 mmHg Heart Rhythm: Tachycardia Technical Quality: Good Exam Date: 10/03/2019 2:59 PM Exam Location: [facility] Patient Status: Inpatient Admit Date: 10/03/2019 Staff Ordering Physician: Janak Mccormack PA-C Crating And Moving Estimator: Leonel Chaves RDCS Attending Provider: Janak Mccormack PA-C Referring Physician: Easton FREGOSO; Exam Type: CA echo doppler w bubble study Study Info Indications 436.0 - CVA Complete two-dimensional, color flow and Doppler transthoracic echocardiogram is performed with agitated saline. Strain analysis performed. Contrast/Agitated Saline Contrast/Ag. Saline: Agitated Saline Amount: 18.00 ml Existing IV Access: Yes History/Risk Factors Acute CVA; tachycardia. Summary 1. Left ventricular chamber dimension is normal. 2. Left ventricular systolic function is normal, estimated at 60-65%. 3. The left ventricular diastolic function is grade I diastolic dysfunction. 4. E/e' 6 is not elevated. 5. Global longitudinal strain is mildly abnormal at -16.4%. 6. Right ventricular systolic function is reduced based on a TAPSE 1.4 cm.. 7. Agitated saline administered with and without valsalva maneuver which opacified right sided heart chambers and a few bubbles crossed over to left heart chambers suggestive of patent foramen ovale or atrial septal defect. 8. There is trace aortic valve regurgitation. Left Ventricle E/e' 6 is not elevated. Global longitudinal strain is mildly abnormal at -16.4%. Left ventricular chamber dimension is normal. Left ventricular systolic function is normal, estimated at 60-65%. The left ventricular diastolic function is grade I diastolic dysfunction. Right Ventricle Right ventricular systolic function is reduced based on a TAPSE 1.4 cm.. Right ventricular chamber dimension is not well visualized. Left Atria Left atrial chamber dimension is normal. Right Atria Right atrial chamber dimension is not well visualized. Atrial Septum Agitated saline administered with and without valsalva maneuver which opacified right sided heart chambers and a few bubbles crossed over to left heart chambers suggestive of patent foramen ovale or atrial septal defect. Interatrial septum not well visualized by agitated saline imaging. Aortic Valve The aortic valve is trileaflet. There is no aortic valve stenosis. There is trace aortic valve regurgitation. Pulmonic Valve There is no pulmonic regurgitation. Mitral Valve There is no mitral valve stenosis. There is no mitral valve regurgitation. Tricuspid Valve There is no tricuspid valve regurgitation. Pericardium/Pleural There is no pericardial effusion. Inferior Vena Cava Normal inferior vena cava with >50% collapse upon inspiration consistent with normal right atrial pressure, 5 mmHg. Aorta The aortic root size at the sinus of Valsalva is normal. Left Ventricular Outflow Tract Name Value Normal LVOT 2D LVOT Diameter 2.0 cm LVOT Doppler
[2019-10-03 00:05] LABS: Band Neutrophils Percent 8 % (0-6); Lymphocytes Absolute Manual 1.31 K/mm3 (1.1-4.5); Monocytes Absolute Manual 0.29 K/mm3 (0.1-0.90); Monocytes Percent Manual 2 % (3-9); Neutrophils Absolute Manual 12.99 K/mm3 (1.7-7.2); Neutrophils Percent Manual 81 % (46-73); Total Cells Counted 100
[2019-10-03 00:06] LABS: Microcytosis 1+ (NORMAL); Platelet Estimate Adequate (Adequate)
[2019-10-03 00:07] LABS: Magnesium 2.2 mg/dL (1.6-2.3); Troponin I < 0.012 ng/mL (0.000-0.034)
[2019-10-03] MEDS: LORAZEPAM INJ 2 MG/ML VIAL 0.5 MG IV PUSH (00:51)
--- NOTE | 2019-10-03 01:42 | PC.NURSE ---
Patient attempted to provide a urine sample, was contaminated with a BM. Patient aware of need for urine specimen. technical publications writer and EDP notified.
[2019-10-03 02:19] LABS: Add Urine Microscopic? YES; Appearance Urine Clear (Clear); Bacteria Urine Trace /hpf; Bilirubin Urine Negative (Negative); Blood Urine 1+ (Negative); Color Urine Colorless (Yellow); Glucose Urine UA Negative (Negative); Ketones Urine Negative (Negative); Leukocyte Esterase Ur Trace LEU/UL (Negative); Mucus Urine Rare /lpf; Nitrate Urine Negative (Negative); Protein Urine Negative (Negative); RBC Urine 0-2 /hpf (0-2); Squamous Epithelial Cell Urine Rare /hpf (Few); Urobilinogen Urine Negative mg/dL (<2.0)
[2019-10-03 02:20] LABS: Specific Grav Ur 1.003 (1.001-1.035)
--- NOTE | 2019-10-03 02:44 | PC.NURSE ---
When attempting to ready patient to transfer her upstairs to her room, patient's requested to speak with the physician. EDP notified.
--- NOTE | 2019-10-03 03:03 | PC.NURSE ---
This patient, Luba Hernandez, was admitted to 2 Medical Room 242-01. Patient/family oriented to hospital policies and general routines including ID bracelet, bed and alarms, visiting hours, pain management, procedures, bathroom and other care routines, personal items, smoking policy, room service/diet, and visiting hours. Valuables list has been completed. Information on how to activate the Rapid Response Team has been discussed. Patient/Family are encouraged to report perceived risks to care and to ask questions if they do not understand what they are told or what they should do.
[2019-10-03] MEDS: LACTATED RINGERS 1,000 ML 100 ML IV CONT ×2 (05:57→21:11)
[2019-10-03] MEDS: PANTOPRAZOLE 40 MG TABLET PO (08:30)
[2019-10-03 10:03] LABS: Basophils Percent Auto 0.1 % (0.2-1.2); Eosinophils Absolute Auto 0.1 K/mm3 (0-0.3); Eosinophils Percent Auto 0.4 % (0-4.4); Hematocrit 37.9 % (37.0-47.0); Hemoglobin 12.2 g/dL (12.0-15.0); Immature Granulocyte Absolute 0.17 K/mm3 (0.00-0.031); Lymphocytes Absolute Auto 1.22 K/mm3 (0.9-3.2); Lymphocytes Percent Auto 7.4 % (18.3-44.2); Mean Corpuscular HGB Conc 32.2 g/dl (32-36); Mean Corpuscular Volume 80.8 fl (80-100); Mean Platelet Volume 9.8 fl (7.4-10.4); Monocytes Absolute Auto 0.4 K/mm3 (0.1-0.6); Monocytes Percent Auto 2.6 % (2.6-8.5); Neutrophils Absolute Auto 14.7 K/mm3 (1.3-6.7); Neutrophils Percent Auto 88.5 % (45.5-73.1); Platelet Count Result 111 k/mm3 (150-375); Red Blood Count 4.69 M/mm3 (4.2-5.4); Red Cell Distribution Width 17.2 % (11.5-14.5); White Blood Count 16.6 K/mm3 (4.5-10.0)
--- NOTE | 2019-10-03 10:36 | PM.IMHP ---
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 Case (06/2019) and currently undergoing chemotherapy per Dr. Gipson (last treatment W, Th, F of last week) and Wayne's palsy (left sided, residual) who presented to the ER via EMS on night of 10/01 with complaints of LE weakness. Patient states she was going to bed last night when she went to put weight on her right leg and it began to feel weak and funny . When attempting to transfer weight onto left leg, she states her leg gave out and she slowly slid down the side of her bed onto the floor; denies any trauma during fall, head or body. She states that her right jaw also began to lock up to a point where she was drooling. She took a benadryl last night as she thought she was having a dystonic reaction to her compazine she took the afternoon prior. She does have history of Wayne's Palsy with left sided residual, but her noted that her facial droop looked different and EMS was then summoned. Upon arrival to the ED, her symptoms began to resolve, particularly her weakness and drooling, and locked jaw, although, today she still complains of left sided UE/LE weakness she thinks is related to her recent chemotherapy treatment or compazine use. 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 She tells me her symptoms have nearly resolved other than her left UE/LE weakness as stated above. She states she has occasional SOB with walking she thinks is due to her chemotherapy; no acute changes recently. She has no other complaints at this moment. Denies f/c/s, myalgias/arthralgias, headaches, dizziness, lightheadedness, changes in v/h, cp/palpitations, cough, current n/v/d/c, abd pain, changes in BMs, dysuria, hematuria, cloudy urine, calf pain/swelling. Of note, while in the ED, Head CT was unremakrable for acute CVA. It appears, given her history and improvement of symptoms, CVA felt to be less likely and thus tPA was not given while in the ED. 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 Her PCP is Dr. Weems; she typically sees his PA, Fede. She wishes to be listed as a Full Code at this moment Smoking status: Never smoker Second hand tobacco smoke exposure: Yes Alcohol intake: former Drinks per week: 1 Alcohol use details: Patient has not drank since 06/2019 Substance use: never Substance use type: does not use Gender identity (if verbalized by the patient): Female Spiritual care concerns: No Agree to blood products: Yes Meds Home Medications and Allergies Home Medications Medication Instructions Recorded Confirmed Type acetaminophen [Tylenol] 325 mg PO ONCE PRN 09/27/19 10/03/19 History ibuprofen [Advil] 200 mg PO Q6H PRN 09/27/19 10/03/19 History lorazepam [Ativan] 1 mg PRN PRN 09/27/19 10/03/19 History pantoprazole [Protonix] 40 mg PO QAM 09/27/19 10/03/19 History prochlorperazine maleate 10 mg PO Q6H PRN 09/27/19 10/03/19 History [Compazine] Allergies Allergy/AdvReac Type Severity Reaction Status Date / Time No Known Allergies Allergy Unknown
--- NOTE | 2019-10-03 12:35 | PCPTNOTE ---
Attempted to see pt this afternoon for PT evaluation. Pt in MRI, will attempt again at a later date.
[2019-10-03] MEDS: ASPIRIN 81 MG ENTERIC TABLET PO (17:42)
[2019-10-04] VITALS: PULSE 83
[2019-10-04] MEDS: ACETAMINOPHEN 325 MG TABLET PO (02:59)
[2019-10-04 04:00] VITALS: PULSE 79
[2019-10-04 05:43] LABS: Basophils Percent Auto 0.6 % (0.2-1.2); Eosinophils Absolute Auto 0.2 K/mm3 (0-0.3); Eosinophils Percent Auto 3.2 % (0-4.4); Hematocrit 36.1 % (37.0-47.0); Hemoglobin 11.8 g/dL (12.0-15.0); Immature Granulocyte Absolute 0.06 K/mm3 (0.00-0.031); Immature Granulocyte Percent A 0.9 % (0-0.5); Immature Platelet Fraction Pct 4.3 % (0.9-11.2); Lymphocytes Absolute Auto 1.08 K/mm3 (0.9-3.2); Lymphocytes Percent Auto 17.1 % (18.3-44.2); Mean Corpuscular HGB Conc 32.7 g/dl (32-36); Mean Corpuscular Volume 79.5 fl (80-100); Mean Platelet Volume 9.7 fl (7.4-10.4); Monocytes Absolute Auto 0.4 K/mm3 (0.1-0.6); Monocytes Percent Auto 6.3 % (2.6-8.5); Neutrophils Absolute Auto 4.6 K/mm3 (1.3-6.7); Neutrophils Percent Auto 71.9 % (45.5-73.1); Platelet Count Result 89 k/mm3 (150-375); Red Blood Count 4.54 M/mm3 (4.2-5.4); Red Cell Distribution Width 16.9 % (11.5-14.5); White Blood Count 6.3 K/mm3 (4.5-10.0)
[2019-10-04 05:53] LABS: Blood Urea Nitrogen 13 mg/dL (7-17); Calcium 9.1 mg/dL (8.4-10.2); Carbon Dioxide 27 mmol/L (22-30); Chloride 101 mmol/L (98-107); Estimated CRCL calculation 81 ml/min; Estimated Glomerular Filt Rate > 60; Glucose 100 mg/dL (65-105); Magnesium 2.2 mg/dL (1.6-2.3); Sodium 133 mmol/L (137-145)
[2019-10-04 06:00] VITALS: BP 137/69; PULSE 85; RESP 18; TEMP 36.9; O2SAT 92
[2019-10-04 06:25] LABS: Anisocytosis 1+ (NORMAL); Platelet Estimate Decreased (Adequate)
[2019-10-04] MEDS: LACTATED RINGERS 1,000 ML 100 ML IV CONT (07:58)
[2019-10-04] MEDS: ASPIRIN 81 MG ENTERIC TABLET PO (07:58)
[2019-10-04] MEDS: PANTOPRAZOLE 40 MG TABLET PO (07:59)
[2019-10-04 08:00] VITALS: PULSE 96
--- NOTE | 2019-10-04 08:36 | PM.IMPN ---
Progress Note: A&P Assessment and Plan (1) Acute CVA (cerebrovascular accident): Code(s): I63.9 - Cerebral infarction, unspecified Status: Acute Assessment and Plan: Found on Brain MRI and CTA of head/neck yesterday. Likely etiology of symptoms. Echo with bubble study suggestive of PFO/ASD. Patient currently treated for cancer, increasing risk of VTE. Discussed with Neurologist, Dr. Hawk, who has agreed to see patient; appreciate rec. Overall, patient states her symptoms have improved, including left sided weakness/heaviness. PT/OT recommend outpatient therapy. Continue 81 mg aspirin daily as recommended by Neurology Await further recommendations from Neurology OP PT/OT once discharged Consider discharge once okay with Neurology standpoint F/u with Dr. Gipson, Dr. Hawk, and PCP as outpatient Monitor closely (2) PFO (patent foramen ovale): Code(s): Q21.1 - Atrial septal defect Status: Acute Assessment and Plan: Suggested on Echo with bubble study yesterday. Patient does not give symptoms of VTE other than occasional SOB which she attributes to her chemotherapy. Patient currently on 81 mg aspirin daily started yesterday per Neurology recs As above, will await further recs from Neurology (3) Carcinoma of cecum: Code(s): C18.0 - Malignant neoplasm of cecum Status: Acute Assessment and Plan: S/p hand assisted laparoscopic right hemicolectomy with ileocolic anastomosis per Dr. Case (06/2019) and currently undergoing Chemotherapy treatment per Dr. Gipson. Patient will follow up with Dr. Gipson as an outpatient given new diagnosis of CVA. F/u with Dr. Gipson per his instructions Subjective Date/time seen: 10/04/19 08:36 Interval history: Patient is a 58 yo F with history of cecum cancer s/p hand assisted laparoscopic right hemicolectomy with ileocolic anastomosis per Dr. Case (06/2019) and currently undergoing chemotherapy per Dr. Gipson (last treatment W, Th, F of last week) and Wayne's palsy (left sided, residual) who is here for evaluation/management of acute CVA of right caudate nucleus. Patient states she is feeling better today. Her left sided weakness/heaviness has improved. She noted a headache last night that resolved with Tylenol. She does state she has been getting SOB with exertion while at home since starting her chemo treatment, which she has attributed to her treatment course. She otherwise has no other complaints. Denies f/c/s, dizziness, lightheadedness, changes in v/h, cp/palpitations, cough, n/v/d/c, abd pain, changes in BMs, dysuria, hematuria, cloudy urine, calf pain/swelling. Review of Systems Review of Systems: All systems reviewed & are unremarkable except as noted in HPI and below Exam Narrative: Exam Narrative: Patient sitting upright in chair at time of visit Const: General: cooperative, comfortable, no acute distress, well developed and alert Nutritional Appearance: well nourished Orientation/consciousness: patient oriented x3 HENMT: Head: normocephalic and atraumatic General nose exam: Normal nares present Face and sinus: face asymmetric (slight left facial droop; chronic) Mouth: Yes moist mucous membranes Eyes: General: appearance normal, both eyes and all related structures Sclera: sclerae normal Pupils: Equal, round and reactive pupils present EOM: EOMs intact bilaterally Neck: Neck: trachea midline and supple Resp: Effort & Inspection: normal respiratory effort Auscultation: clear to auscultation bilaterally Cardio: Rate: regular rate Rhythm: regular rhythm Heart sounds: no murmurs GI: Inspection: non-distended GI Palp: No abdominal tenderness and Yes Soft to palpation Auscultation: normal bowel sounds and other (BS present) Skin: General skin exam: normal color and no rashes or lesions noted Neuro: Ge
--- NOTE | 2019-10-04 10:26 | PM.CNCAR ---
Assessment and Plan Assessment and plan (1) PFO (patent foramen ovale): Code(s): Q21.1 - Atrial septal defect Status: Acute Assessment and Plan: Discussed with patient at length regarding workup and closure of possible PFO. Multiple studies are showing benefit of closure vs medical therapy for secondary prevention of stroke in patient with hypercoagulable state (cancer in this case), and if she has atrial septal aneurysm or large atrial defect. She probably has small defect given only few bubbles crossed on echo. Would recommend WARREN to better visualize PFO and determine size of defect and if aneurysmal. She wants to think about it. Continue antiplatelet agents as we do not have definite signs or symptoms of VTE and this would decrease risk of cardioembolism also. As outpatient she can f/u with me and consider WARREN and if she has high risk features for cardioembolism, then would definitely recommend device closure. (2) Acute CVA (cerebrovascular accident): Code(s): I63.9 - Cerebral infarction, unspecified Status: Acute History of Present Illness History of Present Illness Consult date/time: 10/04/19 10:26 Reason for consult: PFO and stroke. 58 yr old woman with history of cecum cancer (s/p hand assisted laparoscopic right hemicolectomy with ileocolic anastomosis per Dr. Case (06/2019) and currently undergoing chemotherapy per Dr. Gipson (last treatment W, , of last week) presented to hospital with left sided weakness and found to have acute stroke involving right caudate nucleus. CTA shows normal carotid vessels with new caudate nucleus edema. MRI brain brain shows acute infarct of right caudate nucleus. Echo shows EF 60-65%, trace AI, few bubbles crossing to left sided chambers s/o PFO or ASD; the interatrial septum is not clearly visualized. EKG shows sinus tachycardia, borderline ST-T in diffuse leads. Patient reports weakness of left side upper and lower extremities. Denies chest pain, sob, palpitations, edema, orthopnea. Reason For Visit: generalized weakness r/o CVA Review of Systems Review of Systems: All systems reviewed & are unremarkable except as noted in HPI and below Constitutional: Constitutional: Reports as per HPI and Denies chills Cardiovascular: Cardiovascular: Reports as per HPI and Denies chest pain Respiratory: Respiratory: Reports as per HPI and Denies dyspnea Gastrointestinal: Gastrointestinal: Reports as per HPI and Denies abdominal pain Genitourinary: Genitourinary: Reports as per HPI and Denies nocturia Musculoskeletal: Musculoskeletal: Reports as per HPI Neurologic: Reports as per HPI [facility] Past Medical History Medical History (Updated 10/04/19 @ 08:37 by Janak Mccormack PA-C) Acute CVA (cerebrovascular accident) Carcinoma of cecum H/O Wayne's palsy Left, residual palsy Mitral valve prolapse Surgical History Surgical History (Updated 10/03/19 @ 10:58 by Janak Mccormack PA-C) History of dilatation and curettage History of laparoscopy s/p hand assisted laparoscopic right hemicolectomy with ileocolic anastomosis (06/2019) Social History Social History (Updated 10/03/19 @ 10:59 by Janak Mccormack PA-C) Social History: Patient lives at home with , Jhoan, whom she designates at her surrogate MDM. Her PCP is Dr. Weems; she typically sees his PA, Fede. She wishes to be listed as a Full Code at this moment Smoking status: Never smoker Second hand tobacco smoke exposure: Yes Alcohol intake: former Drinks per week: 1 Alcohol use details: Patient has not drank since 06/2019 Substance use: never Substance use type: does not use Gender identity (if verbalized by the patient): Female Spiritual care concerns: No Agree to blood products: Yes Meds Home Medications and Allergies Home Medications Medication Instructions Recorded Confirmed Type acetaminophen [Tylenol] 325 mg PO ONCE PRN 09/27/19 10/03/19 History ibuprof
[2019-10-04] MEDS: CLOPIDOGREL BISULFATE 75 MG TABLET PO (12:11)
--- NOTE | 2019-10-04 12:23 | CONS_ITS ---
DATE OF CONSULTATION: 10/04/2019 HISTORY OF PRESENT ILLNESS: A 58-year-old lady has been admitted to [facility] through the emergency room with the complaint of lower extremity weakness and with information she was going to bed last night when she went to put weight on her right lower extremity, it begin to feel weak and funny. When she attempted to transfer the weight on to her left lower extremity, her left lower extremity gave out. She slowly slid down the side of her bed onto the floor, did not sustain any trauma. Her jaw began to lockup to the point that she was drooling. She took a Benadryl last night, as she thought she was having a dystonic reaction to her Compazine, she took in the afternoon. She does have a history of Wayne's palsy with left-sided residual, but her noted a facial droop look different. EMS was called to the scene. By the time, they came to the home, the symptoms begin to resolve, but still she was experiencing left upper extremity and lower extremity weakness. She also complained of being short of breath due to her chemotherapy. She gave no history of any other problem. PAST MEDICAL HISTORY: 1. She has ongoing history of cancer of the cecum for which she has undergone laparoscopic, right hemicolectomy with ileocolic anastomosis and at present she is undergoing chemotherapy per Dr. Gipson. 2. History of Wayne's palsy with left-sided residual. 3. Mitral valve prolapse. 4. History of D and C and as mentioned above laparoscopic right hemicolectomy with ileocolic anastomosis. She has never smoker. She is a former drinker. One drink per week, has not had a drink since June of 2019. She does not use any substance. MEDICATIONS: Included: 1. Tylenol. 2. Ibuprofen. 3. Lorazepam. 4. Pantoprazole. 5. Prochlorperazine. ALLERGIES: SHE IS NOT ALLERGIC TO ANY MEDICATION. PHYSICAL EXAMINATION: VITAL SIGNS: Evaluation up until now revealed her to be afebrile with temperature of 97.6, pulse of 108, respirations 20, blood pressure 148/73, and pulse ox of 100%. HEENT: Head normocephalic with no cranial bruit. Ear, nose, throat examination normal. NECK: Supple with no cervical bruit. No thyromegaly. No lymphadenopathy. HEART: Regular with no murmur. LUNGS: Clear to auscultation with no crepitation. ABDOMEN: Soft. NEUROLOGICAL: She is awake, alert, oriented x3. Her speech not dysphasic, no dysarthric. Pupils round regular. Gamino of vision full. Extraocular movements full. Face mildly asymmetrical. Tongue midline. Uvula midline. Motor examination revealed her to have no drift of one side or other side against gravity. Reflexes are 1 to 2+ symmetrical. Plantars are downgoing. There is no evidence of gross sensory or cerebellar deficit. LABORATORY DATA: Evaluation up until now revealed her to have normal CBC with WBC 14.6, hemoglobin 13.9, platelet count of 144. Normal basic metabolic panel, troponin less than 0.012. Negative UA. EKG tachycardia with short LA interval. CT scan of the head, no acute intracranial process. Chest x-ray negative with mild basilar atelectasis. MRI of the brain has been done, which documented acute infarct in the right caudate nucleus. In addition, head and neck CTA documented new small region of cytotoxic edema in the right caudate nucleus. No evidence of stenosis of the vertebrals or cerebral arteries. Echocardiogram revealed right-sided heart chambers opacifications with few bubbles crossing over to the left heart chambers suggestive of the patent foraminal ovale with trace aortic valve regurgitation as well. IMPRESSION: Right caudate nucleus embolic stroke. The patient is already receiving the aspirin 81 mg daily, clopidogrel 75 mg will be added. In addition, Cardiology consultation will be obtained
--- NOTE | 2019-10-04 13:02 | PM.DS ---
DS: Admitting Diagnosis Admitting Diagnosis Admitting Diagnosis: Weakness DS: Discharge Diagnosis Discharge Diagnosis (1) Acute CVA (cerebrovascular accident): Code(s): I63.9 - Cerebral infarction, unspecified Status: Acute Assessment and Plan: Found on Brain MRI and CTA of head/neck yesterday. Likely etiology of symptoms. Echo with bubble study suggestive of PFO/ASD. Patient currently treated for cancer, increasing risk of VTE. Discussed with Neurologist, Dr. Hawk, who has agreed to see patient; appreciate rec. Overall, patient states her symptoms have improved, including left sided weakness/heaviness. PT/OT recommend outpatient therapy. Continue 81 mg aspirin 75 mg Plavix daily x 4 weeks as recommended by Neurology F/u with Neurology and Cardiology for further work up for PFO Patient already is to have CBC and chemistry next wednesday, per patient. Will need to monitor Platelets OP PT/OT once discharged Okay for discharge from Neurology and Cardiology's standpoint F/u with Dr. Gipson, Dr. Hawk, and PCP as outpatient Monitor closely (2) PFO (patent foramen ovale): Code(s): Q21.1 - Atrial septal defect Status: Acute Assessment and Plan: Suggested on Echo with bubble study yesterday. Patient does not give symptoms of VTE other than occasional SOB which she attributes to her chemotherapy. Dr. Callahan consulted per request of Dr. Hawk; appreciate recommendations. Patient currently on 81 mg aspirin and 75 mg Plavix daily per Neurology recs. Continue x 4 weeks Appears patient is to have WARREN as outpatient F/u with Dr. Callahan as outpatient for further management (3) Carcinoma of cecum: Code(s): C18.0 - Malignant neoplasm of cecum Status: Acute Assessment and Plan: S/p hand assisted laparoscopic right hemicolectomy with ileocolic anastomosis per Dr. Case (06/2019) and currently undergoing Chemotherapy treatment per Dr. Gipson. Patient will follow up with Dr. Gipson as an outpatient given new diagnosis of CVA. F/u with Dr. Gipson per his instructions DS: Summary Hospital Course Reason for hospitalization: Acute CVA Hospital Course: Patient is a 58 yo F with history of cecum cancer s/p hand assisted laparoscopic right hemicolectomy with ileocolic anastomosis per Dr. Case (06/2019) and currently undergoing chemotherapy per Dr. Gipson (last treatment W, Th, F of last week) and Wayne's palsy (left sided, residual) who presented to the ER via EMS on night of 10/01 with complaints of LE weakness. While in the ED, CT of the head was unremarkable for acute intracranial process. It was decided in the ED that given her quick improvement of symptoms and the uncertainty of the diagnosis, patient was not a good candidate for tPA and thus tPA was not administered in the ED. Patient was admitted for CVA rule out. Please see H&P for further details. Presenting VS: Temp Pulse Resp BP Pulse Ox 97.6 F 108 H 20 148/73 H 100 10/02/19 23:21 10/02/19 23:21 10/02/19 23:21 10/02/19 23:21 10/02/19 23:21 Presenting Pertinent labs: WBC 14.6k, platelet 144. Troponin negative. CBC, chemistry, coag, UA otherwise unremarkable for etiology of symptoms Micro: none Imaging: Head CT 10/02/19 23:24 IMPRESSION: 1. No acute intracranial process. Dr. Perez discussed these findings with Dr. Ha at 11:26 PM. Chest X-Ray 10/02/19 23:46 IMPRESSION: 1. Mild left basilar atelectasis. Brain MRI 10/03/19 13:28 IMPRESSION: 1. Acute infarct in the right caudate nucleus. Head/Neck CTA 10/03/19 20:09 IMPRESSION: 1. New small region of cytotoxic edema in the right caudate nucleus corresponding to the region of restricted diffusion on prior MRI consistent with acute infarct. 2. No evident atherosclerotic plaque with 0% stenosis of the left or right carotid bulbs relative to normal distal
[2019-10-04 13:22] VITALS: BP 133/68; PULSE 89; RESP 18; TEMP 36.5; O2SAT 99
--- NOTE | 2019-10-05 12:47 | PC.NURSE ---
Faxed PT eval and treat order to outpatient therapy.
== END 2019-10-04 15:15 | disposition home or self-care (01) | DRG 65 ==
LOC: ANHED 10-03 01:49 → ANH2MED 10-03 02:23
PROVIDERS: Physician Assistant; Admitting Provider Internal Medicine; Emergency Provider Emergency Medicine; PCP Internal Medicine; Visit Provider Family Medicine
DX: I63.9 Cerebral infarction, unspecified (principal); Q21.1 Atrial septal defect; C18.0 Malignant neoplasm of cecum; G81.94 Hemiplegia, unspecified affecting left nondominant side; G51.0 Bell's palsy; G47.33 Obstructive sleep apnea (adult) (pediatric)
CPT/HCPCS: 36415; 70450; 70496; 70498; 70553; 71045; 80048; 81001; 82948; 83735; 84484; 85025; 85055; 85610; 85730; 93005; 93306; 96361; 96374; 96375; 97110; 97116; 97161; 97165; 97530; 99285; A9270; A9577; J2060; J7030; J7120; Q9967

== ENCOUNTER 2019-10-12 12:24 | Outpatient (RCR) | payer OTHER, SELFPAY ==
--- NOTE | 2019-10-12 13:45 | OTOPEVAL ---
Occupational Therapy Initial Evaluation and Discharge Summary 10/12/2019 Thank you for referring Luba Hernandez to [facility]. As noted below, no further skilled OT is indicated at this time. Plan to dishchage today with patient independent with HEP. Please review, sign, date and return this plan of care SCOTTY. I agree with and certify that the following plan of care is medically necessary. 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 Pt reports psot CVA on 10/03/2019, pt is able to complete all ADLs and IADLs independently and with no limitations, no weakness, and no pain Prior Level of Function Activity Level (Last 3 Months) Hand Dominance Ambidextrous Activity of Daily Living Ability Independent Indoor/Home Mobility Independent Community Mobility Independent Stairs Ability Independent Functional Cognition (Planning, Shopping Independent , Taking Medications) Cooking Yes Cleaning Yes Laundry Yes Shopping Yes Driving Yes Home Setting Home Type House,Multiple Levels Environmental Barriers Stairs, Greater than 4 Living Situation With Spouse Support Available Local Family Support Mobility Assistive Devices (Used Last 3 None Months) Comments Additional Prior Level of Function Pt reports being independent Comments in all ADLs and IADLs prior to CVA Pain Assessment Timing of Pain Assessment Timing of Pain Assessment Assessment Self Report Self Report Pain Level 0 Pain Score Pain Score 0: Self Report Upper Extremity Range of Motion General Upper Extremity Range of Motion Reason Not Measured WNL/Left,WNL/Right Gross Upper Extremity Range of Motion Pt bilateral UE AROM is WNL Comments Upper Extremity Muscle Strength Testing General Upper Extremity Strength Reason
--- NOTE | 2019-10-12 14:09 | PTOPEVAL ---
PHYSICAL THERAPY EVALUATION AND DISCHARGE Thank you for referring Luba Hernandez to [facility]. Luba is demonstrating WNL for balance, strength, and gait. No care plan will be developed at this time. Please review, sign, date and return this plan of care SCOTTY. I agree with and certify that the following plan of care is medically necessary. Referring Physician Date Attending Provider: Shahid Hawk MD Evaluation Outpatient Past Medical History Neurological History Hx Cerebrovascular Accident (CVA) Yes: 10/02/2019 Cardiovascular History Hx Cardiac Catheterization Yes: 2010 Hx Heart Murmur Yes Hx Mitral Valve Prolapse Yes Respiratory History Hx Respiratory Disorders No Significant History Gastrointestinal History Hx Appendectomy Yes Hx Bowel Surgery Yes: 07/14/19 resection/ cancer Hx Other Gastrointestinal Disorders Yes: COLON CANCER 06/2019 Reproductive History Hx Other Reproductive Disorders Yes: DIAG. LAP FOR OVARIAN CYST, UTERINE BX Psychosocial History Hx Psychiatric Disorders No Significant History Pain History History of Any Previous or Ongoing No Significant History Instance of Pain Anesthesia History Hx Anesthesia Reactions No Significant History Other History Hx Cancer Yes: COLON Evaluation Information Problem Diagnosis CVA left sided Onset 10/02/2019 Subjective Information Luba is here today s/p CVA Query Text:As Reported By Patient/ affecting left side. She was Family evaluated by OT, but they have deemed her WNL. She has been exercising since the stroke. Prior to the stroke, she was exercises but then started taking care of her mother and started chemo therapy. She is seeing a electrician substation tomorrow (10/13/2019) to determine the extent of a hole in her heart. She has exercise equipment at home including a recumbent bike. Pain Assessment Timing of Pain Assessment Timing of Pain Assessment Assessment Self Report Self Report Pain Level 0 Pain Score Pain Score 0: Self Report Lower Extremity Muscle Strength Testing General Lower Extremity Strength Gross Lower Extremity Strength generally 4+/5 throughout; right hip flexion = 4/5; left hip abduction: 4-/5 Balance Assessment Amin Balance Assessment Sitting to Standing Independent w/out Hands Unsupported Stance Ability Safely- 2 minutes Sitting Unsupport
== END 2019-12-26 14:06 | disposition home or self-care (01) ==
LOC: ANHOT 12:24
PROVIDERS: PCP Internal Medicine; Visit Provider Psychiatry & Neurology Neurology
DX: I63.9 Cerebral infarction, unspecified (principal)
CPT/HCPCS: 97161; 97165

== ENCOUNTER 2019-10-17 10:22 | Outpatient (CLI) | payer OTHER, SELFPAY ==
[2019-10-17 19:45] LABS: SARS-CoV-2 RNA PCR Negative
== END 2019-10-17 10:23 | disposition home or self-care (01) ==
PROVIDERS: PCP Internal Medicine; Visit Provider Internal Medicine Cardiovascular Disease
DX: Z01.818 Encounter for other preprocedural examination (principal); Z11.59 Encounter for screening for other viral diseases
CPT/HCPCS: 87635; C9803; U0003

== ENCOUNTER 2019-10-19 05:32 | Day surgery (SDC) | payer OTHER, SELFPAY ==
[2019-10-18 12:30] VITALS: BMI 28.4
[2019-10-19] VITALS (7 sets, daily range): BP systolic 119–163; BP diastolic 70–85; PULSE 85–135; RESP 11–24; TEMP 36.6; O2SAT 97–100
--- NOTE | 2019-10-19 07:15 | ECHO_ITS ---
Patient Info Name: Luba Hernandez Age: 58 years : 1960 Gender: Female Ht: 62 in Wt: 155 lbs BSA: 1.78 m2 HR: 142 bpm Technical Quality: Excellent Exam Date: 10/19/2019 9:52 AM Exam Location: [facility] Patient Status: Outpatient Admit Date: 10/19/2019 Staff Ordering Physician: Andre Callahan DO Jig Boring Machine Set Up Operator: Antoni Chao RDCS, RT Attending Provider: Andre Callahan DO Referring Physician: London CABRAL; Exam Type: CA echo transesophageal Study Info Indications Q21.1 - Atrial septal defect Complete two-dimensional, color flow and Doppler transesophageal study is performed. Medications Cetacaine spray given x 2 to reduce gag reflex. Versed 2 mg and Fentanyl 50 mcg IV given for conscious sedation. Procedure Details Risks/benefits discussed with patient and she gave informed consent for procedure. Patient monitored and HR was 90 bpm and BP 140/90 mmHg. WARREN probe advanced to posterior oropharynx and she was able to swallow probe without incident into esophagus. HR did incrase to 140 bpm then she settled down and it came down to 100 bpm. Multiple images acquired. Agitated saline given x 2 to assess atrial septum. WARREN probe withdrawn and no blood noted on probe tip. She tolerated procedure well. No complications. Summary 1. Left ventricular systolic function is normal with an ejection fraction 60-65%. 2. Left ventricular chamber dimension is normal. 3. The left ventricular diastolic function is indeterminate. 4. Diastolic function is not assessed. 5. Left atrial chamber dimension is mildly enlarged. 6. Suspected patent foramen ovale visualized by 2D, color flow and agitated saline imaging. 7. A few bubbles crossed from right atrium to left atrium with agitated saline. Interatrial septal aneurysm noted. 8. There is trace mitral valve regurgitation. Left Ventricle Diastolic function is not assessed. Left ventricular systolic function is normal with an ejection fraction 60-65%. Left ventricular chamber dimension is normal. The left ventricular diastolic function is indeterminate. Right Ventricle Right ventricular chamber dimension is normal. Right ventricular systolic function is normal. Left Atria Left atrial chamber dimension is mildly enlarged. Right Atria Right atrial chamber dimension is normal. Atrial Septum A few bubbles crossed from right atrium to left atrium with agitated saline. Interatrial septal aneurysm noted. Suspected patent foramen ovale visualized by 2D, color flow and agitated saline imaging. Atrial Appendage There is no thrombus visualized in the left atrial appendage. Aortic Valve The aortic valve is trileaflet. There is no aortic valve stenosis. There is no aortic valve regurgitation. Pulmonic Valve There is no pulmonic regurgitation. Mitral Valve There is no mitral valve stenosis. There is trace mitral valve regurgitation. Tricuspid Valve There is no tricuspid valve regurgitation. Pericardium/Pleural There is no pericardial effusion. Inferior Vena Cava Not well visualized inferior vena cava. Aorta The aortic root size at the sinus of Valsalva is normal. Report Signatures
--- NOTE | 2019-10-19 09:05 | SUR.PREOP ---
Tanya Padilla RN accessed the patient's Port a Cath and it will flush but not give blood return. She said it needs Cath Jag, called Dr. Callahan and Dr. Gipson.
== END 2019-10-19 11:10 | disposition home or self-care (01) ==
PROVIDERS: PCP Internal Medicine; Visit Provider Internal Medicine Cardiovascular Disease
PROC: (CPT 93312; principal; 2019-10-19 07:30)
DX: Q21.1 Atrial septal defect (principal); Z86.73 Personal history of transient ischemic attack (TIA), and cerebral infarction without residual deficits; Z85.038 Personal history of other malignant neoplasm of large intestine; Z90.49 Acquired absence of other specified parts of digestive tract; Z98.0 Intestinal bypass and anastomosis status; Z87.891 Personal history of nicotine dependence
CPT/HCPCS: 93312; 93320; 93325; J2250; J3010; J7040

== ENCOUNTER 2019-11-02 08:46 | Outpatient (CLI) | payer OTHER, SELFPAY ==
--- NOTE | ~2019-11-02 | XR_ITS ---
EXAMINATION: XR fl port a cath w contrast DATE: 11/02/2019 09:46 INDICATION: Right central venous port catheter dysfunction. TECHNIQUE: 408 fluoroscopic images of the chest were obtained while injecting 10 mm of Omnipaque 240 into the patient's existing right internal jugular central venous port catheter. The amount of fluoro scopy time used during this procedure was 2.2 minutes. COMPARISON: None. FINDINGS: Right internal jugular central venous catheter with distal tip at the caudal superior vena cava. Ther e are no kinks or discontinuities the course of the catheter. Contrast is seen extending retrograde a long the margins of the catheter likely within a fibrin sleeve with a jet of contrast extending media lly into the superior vena cava approximately 2 cm proximal to the tip of the catheter. IMPRESSION: 1. Fibrin sleeve at the distal tip of a right internal jugular central venous catheter. Reviewed, dictated and finalized at location A. IMPRESSION: 1. Fibrin sleeve at the distal tip of a right internal jugular central venous c atheter.
== END 2019-11-02 08:47 | disposition home or self-care (01) ==
PROVIDERS: PCP Internal Medicine; Visit Provider Internal Medicine Hematology & Oncology
DX: C18.9 Malignant neoplasm of colon, unspecified (principal); Z95.9 Presence of cardiac and vascular implant and graft, unspecified
CPT/HCPCS: 36598

== ENCOUNTER 2020-01-17 15:12 | Outpatient (CLI) | payer OTHER, SELFPAY ==
--- NOTE | ~2020-01-17 | CT_ITS ---
EXAMINATION: CT chest abdomen pelvis w con DATE: 01/17/2020 15:45 INDICATION: Restaging of colon cancer TECHNIQUE: Computed tomography (CT) of the chest, abdomen, and pelvis was performed with 100 cc Omnip aque 350 intravenous contrast. Automated exposure control and iterative reconstruction technique were employed. Exam dose: 434.12 mGy-cm total exam DLP. COMPARISON: 07/14/2019 CT abdomen pelvis 07/07/2019 CT chest FINDINGS: CHEST CT: The thyroid gland is unremarkable. No hilar or mediastinal mass lesion or lymphadenopathy. No thoraci c aortic aneurysm or dissection. A right Port-A-Cath catheter terminates in the superior vena cava ne ar the superior cavoatrial junction. Normal heart size. No pericardial or pleural effusion. There is discoid atelectasis and/or scarring involving the lingula and both lower lobes and minimally the middle lobe. No pulmonary infiltrate or consolidation or pulmonary mass lesion is detected. ABDOMEN/PELVIS CT: Diffuse hepatic steatosis. There are scattered up to 1.3 cm hepatic cysts. No new hepatic space occupying mass lesion. Splenic size is within normal range. No adrenal mass lesion. No renal mass lesion or urinary tract calculus or hydroureteronephrosis. Normal caliber of the abdominal aorta. No intraperitoneal or retroperitoneal or pelvic mass lesion o r lymphadenopathy or ascites is detected. The urinary bladder and uterus and adnexal areas are unremarkable except for retroverted uterus. Partial right colon resection. No bowel obstruction or bowel wall thickening or pneumatosis of the b owel. No intraperitoneal free air. Left periumbilical fat containing hernia. No suspicious osteosclerotic or osteolytic lesions are noted. IMPRESSION: Hepatic steatosis Multiple hepatic cysts Partial right colon resection Reviewed, dictated and finalized at Location A. Reviewed, dictated and finalized at location B.
== END 2020-01-17 15:13 | disposition home or self-care (01) ==
PROVIDERS: PCP Internal Medicine; Visit Provider Internal Medicine Hematology & Oncology
DX: C18.9 Malignant neoplasm of colon, unspecified (principal); K76.0 Fatty (change of) liver, not elsewhere classified; K76.89 Other specified diseases of liver
CPT/HCPCS: 71260; 74177; Q9967

== ENCOUNTER 2020-03-19 13:28 | Outpatient (CLI) | payer OTHER, SELFPAY ==
[2020-03-19 14:50] LABS: Cholesterol 270 mg/dL (0-200); HDL Direct 45 mg/dL; Triglycerides 204 mg/dL (<150)
[2020-03-19 15:01] LABS: LDL Cholesterol Direct 190 mg/dL
== END 2020-03-19 13:29 | disposition home or self-care (01) ==
LOC: ANHLAB 13:29
PROVIDERS: Visit Provider Internal Medicine Cardiovascular Disease
DX: Z86.73 Personal history of transient ischemic attack (TIA), and cerebral infarction without residual deficits (principal); Z51.81 Encounter for therapeutic drug level monitoring; Z79.899 Other long term (current) drug therapy
CPT/HCPCS: 36415; 80061

== ENCOUNTER → 2020-03-21 08:58 | Outpatient (CLI) | payer OTHER, SELFPAY ==
--- NOTE | ~2020-03-21 | MM_ITS ---
EXAMINATION: MM screening marcio BI w alfonso HISTORY: Screening mammogram TECHNIQUE: Craniocaudal and mediolateral oblique 3-D tomosynthesis images were obtained and synthetic 2-D images were generated. CAD analysis was submitted and interpreted. COMPARISON: 03/09/2019, 02/03/2018, 01/29/2017 bilateral digital screening mammogram examinations BREAST PARENCHYMAL COMPOSITION: There are scattered areas of fibroglandular density. FINDINGS: Stable mild fibroglandular asymmetry. There is no evidence of suspicious mass, calcificatio n, or architectural distortion to suggest malignancy in either breast. There has been no suspicious i nterval change. IMPRESSION: 1. No mammographic evidence of malignancy. 2. Recommend routine screening mammography in one year. BI-RADS Category 2: Benign finding(s). Reviewed, dictated and finalized at location A. MBLY MEMBER
--- NOTE | ~2020-03-21 | DEXA_ITS ---
Bone Density Report Name: Luba Hernandez Age: 59 Sex: Female Ethnicity: White Date of : 1960 Indication: osteopenia; cancer; postmenopausal Referring Provider: LUKE, AISHWARYA Study: Bone densitometry was performed. Exam Date: March 21, 2020 Accession number: [id number] Bone Density: Region BMD T-score Z-score Classification AP Spine (L1-L4) 0.865 -1.7 -0.4 Osteopenia Femoral Neck (Left) 0.698 -1.4 -0.2 Osteopenia Total Hip (Left) 0.798 -1.2 -0.3 Osteopenia Femoral Neck (Right) 0.709 -1.3 -0.1 Osteopenia Total Hip (Right) 0.825 -1.0 -0.1 Normal Total Hip Mean 0.812 -1.1 -0.2 Osteopenia World Health Organization criteria for BMD impression classify patients as: Normal (T-score at or above -1.0), Osteopenia (T-score between -1.0 and -2.5), or Osteoporosis (T-score at or below -2.5). 10-year Fracture Risk(1): Major Osteoporotic Fracture 7.1% Hip Fracture 0.5% Reported Risk Factors: [place] (), Neck BMD=0.698, BMI=27.9 (1) FRAX(R) Version 3.08. Fracture probability calculated for an untreated patient. Fracture probability may be lower if the patient has received treatment. Previous Exams: Region Exam Age BMD T-score BMD Change BMD Change Date g/cm2 vs Baseline vs Previous AP Spine(L1-L4) 03/21/2020 59 0.865 -1.7 -0.060* -0.022 02/03/2018 57 0.886 -1.5 -0.038* -0.069* 01/28/2016 55 0.955 -0.8 0.030* -0.015 01/12/2014 53 0.970 -0.7 0.045* 0.045* 01/02/2012 51 0.925 -1.1 Total Hip(Left) 03/21/2020 59 0.798 -1.2 0.064* -0.052* 02/03/2018 57 0.850 -0.8 0.115* 0.043* 01/28/2016 55 0.806 -1.1 0.072* 0.039* 01/12/2014 53 0.767 -1.4 0.033* 0.033* 01/02/2012 51 0.734 -1.7 Total Hip(Right) 03/21/2020 59 0.825 -1.0 0.057* -0.047* 02/03/2018 57 0.872 -0.6 0.104* 0.039* 01/28/2016 55 0.833 -0.9 0.065* 0.038* 01/12/2014 53 0.795 -1.2 0.027* 0.027* 01/02/2012 51 0.768 -1.4 *Denotes significance at 95% confidence level, LSC for AP Spine = 0.022 g/cm2, LSC for Total Hip = 0.027 g/cm2 Clinical Information Provided by Patient: Has used the following medications: Vitamin D, chemo Has the following medical conditions: Cancer Patient maximum height was 62.9 Menopause Age: 48 Does not regularly consume dairy product
== END ==
PROVIDERS: Visit Provider Nurse Practitioner
DX: Z12.31 Encounter for screening mammogram for malignant neoplasm of breast (principal); M85.852 Other specified disorders of bone density and structure, left thigh; M85.851 Other specified disorders of bone density and structure, right thigh
CPT/HCPCS: 77063; 77067; 77080

== ENCOUNTER 2020-04-02 10:24 | Outpatient (CLI) | payer OTHER, SELFPAY ==
--- NOTE | ~2020-04-02 | PE_ITS ---
EXAMINATION: PET skull to mid thigh DATE: 04/02/2020 13:05 INDICATION: Malignant neoplasm of the colon. TECHNIQUE: Blood glucose level was 76 mg/dL. 9.667 mCi of 18-fluorodeoxyglucose (18-FDG) was administ ered i.v. Low dose computed tomography (CT) images were acquired from the base of the brain to the pr oximal thighs for attenuation correction and anatomic localization. Positron emission tomography (PET ) images were acquired in the same distribution beginning 68 minutes after injection. Images includin g fused PET/CT images were reconstructed in axial, coronal, and sagittal planes. Automated exposure c ontrol technique was employed. The dose-length product was 479.77mGy-cm. COMPARISON: CT dated 01/17/2020 FINDINGS: Head/neck: There is symmetric increased activity in the oral cavity, palatine tonsils, parotid glands, laryngeal muscles and ocular muscles without CT correlate, likely physiologic. No pathologically enlarged cerv ical lymphadenopathy or suspicious foci of increased FDG uptake in the visualized head or neck. Chest: Right internal jugular central venous port catheter with distal tip at the caudal superior vena cava. Mild discoid atelectasis in the lingula and mild dependent atelectasis in the bilateral lower lobes. No suspicious pulmonary nodules, pneumonia, pulmonary edema or pleural effusion. Heart size is modesto l. Metallic density an likely atrial septal closure device at the atrial septum. No pathologically en larged or FDG avid thoracic lymphadenopathy. Abdomen/pelvis/proximal thighs: Physiologic renal accumulation and excretion of FDG activity in the kidneys, bladder and along portio ns of ureters. Normal degree and heterogenous pattern of increased uptake throughout the liver withou t radiologic correlate or dominant FDG avid lesion. Again seen are a few hypodense hepatic lesions th e largest in the right hepatic lobe measuring 1.4 cm consistent with hepatic cysts. The gallbladder, pancreas and bilateral adrenal glands are normal. Mild diffuse increased uptake throughout the spleen and diffuse increased marrow uptake throughout the pelvis and spine which can be seen with red marro w expansion centimeters in the setting of anemia. Postoperative change of prior partial right hemicolectomy with ileocolic anastomotic suture line in t he right lower quadrant. There is diffuse mild FDG uptake throughout the bowels with several scattere d regions of more intense bowel uptake along the bowels in the right hemipelvis. In the inferolateral right hemipelvis the region of the right adnexa there are a couple regions of increased FDG uptake a ssociated with some soft tissue density at least some of which would correspond to bowel and the righ t ovary. The region with the more intense FDG uptake which covers a region of approximately 2.5 x 1.2 cm has a maximal SUV of 9.4 and is located along a couple surgical clips. On the prior study the kely gical clips are bounded laterally by normal retroperitoneal fat. On the current study soft tissue den sity with increased FDG uptake is positioned lateral to the surgical clips which raises concern for m etastases. The second proximal 12 mm diameter region of increased FDG uptake with maximal SUV of 6.2 is located slightly more superiorly and laterally at the previous site of the right ovary. In additio n there are at least 6 subcentimeter lymph nodes in the right perirectal fat and right obturator boubacar on which appear increased in size since the prior study and with increased FDG uptake with maximal STEWART V of up to 3.9 which could be reactive or metastatic. Uterus and left adnexa are unremarkable. No stella picious lytic, blastic or focally more intense FDG avid bone lesions. IMPRESSION: 1. A couple small regions of soft tissue density with increased FDG uptake the anterolateral right he mipelvis and right adnexal region with moderate to high increased FDG uptake stella
[2020-04-02 11:22] LABS: Glucose Point of Care 76 (65-105)
== END 2020-04-02 10:25 | disposition home or self-care (01) ==
PROVIDERS: PCP Internal Medicine; Visit Provider Internal Medicine Hematology & Oncology
DX: C18.9 Malignant neoplasm of colon, unspecified (principal)
CPT/HCPCS: 78815; A9552

== ENCOUNTER → 2020-04-09 13:27 | Outpatient (CLI) | payer OTHER, SELFPAY ==
--- NOTE | ~2020-04-09 | US_ITS ---
EXAMINATION: US transvaginal DATE: 04/09/2020 13:54 INDICATION: Possible pelvic metastases noted on recent PET scan Comparison:Pet/CT dated 04/02/2020 and prior ultrasound dated 05/29/2013 TECHNIQUE: Multiple transabdominal and endovaginal sonographic images of the pelvis performed. FINDINGS: The uterus measures 4.7 x 2.8 x 3 cm. The endometrial complex measures 2.4 mm. The right ovary measures 2.4 x 1.7 x 1.9 cm. Left ovary not visualized. There is no free fluid in the pelvis. There are no abnormal masses seen on either side. IMPRESSION: 1. Unremarkable pelvic ultrasound. Consider further evaluation with contrast-enhanced CT or pre and p ostcontrast pelvic MRI. Reviewed, dictated and finalized at location A. AR WORKER IMPRESSION: 1. Unremarkable pelvic ultrasound. Consider further evaluation with contrast-en hanced CT or pre and postcontrast pelvic MRI.
== END ==
PROVIDERS: Visit Provider Obstetrics & Gynecology Gynecology
DX: R93.89 Abnormal findings on diagnostic imaging of other specified body structures (principal)
CPT/HCPCS: 76830

== ENCOUNTER 2020-04-17 08:35 | Outpatient (CLI) | payer OTHER, SELFPAY ==
--- NOTE | ~2020-04-17 | CT_ITS ---
EXAMINATION: CT abdomen pelvis w con DATE: 04/17/2020 09:03 INDICATION: Restaging of malignant neoplasm of colon. A couple small regions of soft tissue density with increased FDG uptake were identified at the ad lateral right MRI pelvis and right adnexal area on 04/02/[address] scan. Increased size of a few subcentimeter mildly FDG avid perirectal lymph nodes TECHNIQUE: Computed tomography (CT) of the abdomen and pelvis was performed with 100 cc Omnipaque 350 intravenous contrast. Automated exposure control and iterative reconstruction technique were employe d. Exam dose: 384.89 mGy-cm total exam DLP. COMPARISON: 04/02/2020 PET/CT/CT scan 01/17/2020 CT chest abdomen pelvis FINDINGS: Mild atelectasis and/or scarring at the lower lung zones. Normal heart size. No pericardial or pleural effusion. Very small sliding hiatal hernia. Hepatic steatosis. There are at least 7 probable hepatic cysts, measuring up to approximately 1.4 cm dimension. Otherwis e no hepatic, splenic, pancreatic, adrenal or renal space-occupying mass lesion. Normal caliber of the abdominal aorta. There are some shoddy up to approximately 6 mm lymph nodes around the rectosigmoid area which were no t present on 01/17/2020. Otherwise no intraperitoneal or retroperitoneal or pelvic mass lesion or loco opathy or ascites is detected. Partial right colectomy. No bowel obstruction, bowel wall thickening, pneumatosis or intraperitoneal free air. The urinary bladder is evacuated. The uterus and adnexal areas are unremarkable. Surgical clips in the lower anterolateral right pelvis. No suspicious osteolytic or osteoblastic lesions are noted. IMPRESSION: Nonspecific up to 6 mm lymph nodes around the rectosigmoid area, new finding since 2019 Status post right colectomy for colon cancer Hepatic cysts Hepatic steatosis Very small sliding hiatal hernia Reviewed, dictated and finalized at Location A. Reviewed, dictated and finalized at location A. BOND AGENT IMPRESSION: Nonspecific up to 6 mm lymph nodes around the rectosigmoid area, n ew finding since 01/17/2020 Status post right colectomy for colon cancer Hepatic cysts Hepatic steatosis Very small sliding hiatal hernia
== END 2020-04-17 08:36 | disposition home or self-care (01) ==
LOC: ANHIMG 08:37
PROVIDERS: PCP Physician Assistant; Visit Provider Internal Medicine Hematology & Oncology
DX: C18.9 Malignant neoplasm of colon, unspecified (principal); Z90.49 Acquired absence of other specified parts of digestive tract; K76.89 Other specified diseases of liver; K76.0 Fatty (change of) liver, not elsewhere classified; K44.9 Diaphragmatic hernia without obstruction or gangrene
CPT/HCPCS: 74177; Q9967

== ENCOUNTER 2020-05-17 02:53 | Inpatient (IN) | payer OTHER, SELFPAY ==
--- NOTE | ~2020-05-17 | XR_ITS ---
EXAMINATION: XR abdomen obstructive series DATE: 05/18/2020 08:03 INDICATION: Small bowel obstruction TECHNIQUE: Frontal supine and upright views of the abdomen were obtained. COMPARISON: 05/17/2020 FINDINGS: No free intraperitoneal gas. Prior oral contrast has advanced into the colon. No dilated gas or contr ast filled loops of small bowel. Several surgical clips in the right hemipelvis. Lung bases are clear . Amplatz type ASD closure device projects over expected location in the normal sized heart. IMPRESSION: 1. Oral contrast material now in the colon with no residual contrast filled or dilated loops of smal l bowel. The other with the findings on prior CT and the delayed extension of contrast into the colon on the small bowel follow-through study, this could represent either a resolving, intermittent or pa rtial small bowel obstruction. Reviewed, dictated and finalized at location A. IVING SUPERVISOR IMPRESSION: 1. Oral contrast material now in the colon with no residual contrast filled or dilated loops of small bowel. The other with the findings on prior CT and the delayed extension of contrast into the colon on the small bowel follow-through study, this could represent either a resolving, intermittent or partial small b owel obstruction.
--- NOTE | ~2020-05-17 | CT_ITS ---
EXAMINATION: CT abdomen pelvis wo con DATE: 05/17/2020 03:32 INDICATION: Abdominal pain TECHNIQUE: Computed tomography (CT) of the abdomen and pelvis was performed without intravenous contr ast. Automated exposure control and iterative reconstruction technique were employed. The dose-length product was 367.06 mGy-cm. COMPARISON: 04/17/2020 FINDINGS: Mild bibasilar atelectasis. Heart size is normal. Likely atrial septal occlusion device. No pericardi al or pleural effusion. A few well-defined low-attenuation hepatic cysts or hemangiomas, the largest measuring 1.4 cm in maximal diameter. Gallbladder, spleen, pancreas, bilateral adrenal glands and kid neys are normal. No urolithiasis. Prior right hemicolectomy with ileocolic anastomosis in the right a bdomen. There is likely early or partial small bowel obstruction with dilation of a still relatively limited length of small bowel in the pelvis measuring up to 3.4 cm in maximal diameter and with pseud o feces sign proximal to the transition point which in the anterior inferior pelvis where the bowel u ndergoes a sharp change in course suggesting an adhesion. There is mild stranding in the adjacent mes entery with a small amount of free fluid in the pelvis. No abscess or free intraperitoneal gas. Small fat-containing umbilical hernia. Bladder, uterus and left adnexa are normal. There are couple surgic al clips in the region of the right adnexa. There has been interval increase in size of a few small s oft tissue density nodules at the cul-de-sac concerning for progression of metastatic disease. The la rgest along the posterior margin of the uterine fundus is increase in size from approximately 11 x 9 mm to currently measuring 15 x 14 mm. Moderate disc height loss with prominent central disc extrusion at L5-S1. No suspicious lytic or blastic bone lesions. IMPRESSION: 1. Early versus partial small bowel obstruction with sharp change in course of the bowel at the trans ition point in the anteroinferior pelvis suggesting this is due to an adhesion. 2. Enlarging small soft tissue deposits in the cul-de-sac concerning for progression of metastatic co toma cancer which could be either in perirectal lymph nodes or peritoneal implants in the cul-de-sac. Reviewed, dictated and finalized at location B. CREW MEMBER IMPRESSION: 1. Early versus partial small bowel obstruction with sharp change in course of the bowel at the transition point in the anteroinferior pelvis suggesting this is due to an adhesion. 2. Enlarging small soft tissue deposits in the cul-de-sac concerning for progre ssion of metastatic colon cancer which could be either in perirectal lymph node s or peritoneal implants in the cul-de-sac.
--- NOTE | ~2020-05-17 | XR_ITS ---
EXAMINATION: XR sm bowel follow through DATE: 05/17/2020 15:09 INDICATION: Small bowel obstruction. TECHNIQUE: Oral contrast was administered, and a time course of radiographs of the abdomen was obtain ed. Fluoroscopy of the small bowel was not performed. Fluoroscopy exposure time was 0 minutes. The to lauren number of images was 7. COMPARISON: CT abdomen and pelvis 05/17/2020 FINDINGS: There are dilated loops of distal small bowel. There is no contrast in the colon at 4 hours and 15 mi nutes. There are surgical clips in right pelvis. There is an anastomosis from right hemicolectomy. IMPRESSION: 1. Distal small bowel obstruction. Reviewed, dictated and finalized at location A. ESTATE LOAN PROCESSOR
[2020-05-17 02:55] VITALS: BP 148/96; PULSE 126; RESP 22; TEMP 35.8; O2SAT 100
--- NOTE | 2020-05-17 03:10 | PC.NURSE ---
verbal order from erp dr hwang for 1mg dilaudid iv push pain 01/26.
[2020-05-17] MEDS: HYDROmorphone HCL INJ (*CRX) 1 MG/ML SYR IV PUSH (03:13)
[2020-05-17 03:19] LABS: Basophils Percent Auto 0.2 % (0.2-1.2); Eosinophils Absolute Auto 0.1 K/mm3 (0-0.3); Eosinophils Percent Auto 0.6 % (0-4.4); Hematocrit 45.3 % (37.0-47.0); Hemoglobin 15.3 g/dL (12.0-15.0); Immature Granulocyte Absolute 0.02 K/mm3 (0.00-0.031); Immature Granulocyte Percent A 0.2 % (0-0.5); Lymphocytes Absolute Auto 0.98 K/mm3 (0.9-3.2); Lymphocytes Percent Auto 9.5 % (18.3-44.2); Mean Corpuscular HGB Conc 33.8 g/dl (32-36); Mean Corpuscular Hemoglobin 29.6 pg (26-34); Mean Corpuscular Volume 87.6 fl (80-100); Mean Platelet Volume 9.2 fl (7.4-10.4); Monocytes Absolute Auto 0.4 K/mm3 (0.1-0.6); Monocytes Percent Auto 3.7 % (2.6-8.5); Neutrophils Absolute Auto 8.9 K/mm3 (1.3-6.7); Neutrophils Percent Auto 85.8 % (45.5-73.1); Platelet Count Result 316 k/mm3 (150-375); Red Blood Count 5.17 M/mm3 (4.2-5.4); Red Cell Distribution Width 12.7 % (11.5-14.5); White Blood Count 10.4 K/mm3 (4.5-10.0)
[2020-05-17] MEDS: SODIUM CHLORIDE 0.9% IV 1,000 ML 999 ML IV CONT (03:19)
[2020-05-17] MEDS: ONDANSETRON INJ 4 MG/2 ML VIAL IV PUSH ×2 (03:19→05:47)
[2020-05-17 03:33] LABS: Alanine Aminotransferase 22 U/L (4-35); Albumin Level 4.5 g/dL (3.5-5.1); Alkaline Phosphatase 132 U/L (38-126); Anion Gap 8 mmol/L (8-16); Aspartate Amino Transferase 39 U/L (14-36); Bilirubin,Total 0.5 mg/dL (0.2-1.3); Blood Urea Nitrogen 16 mg/dL (7-17); Calcium 9.2 mg/dL (8.4-10.2); Carbon Dioxide 26 mmol/L (22-30); Chloride 104 mmol/L (98-107); Estimated CRCL calculation 69 ml/min; Estimated Glomerular Filt Rate > 60; Glucose 123 mg/dL (65-105); Lipase 153 U/L (23-300); Sodium 138 mmol/L (137-145)
[2020-05-17 04:04] LABS: Lactic Acid Reflex 0.9 mmol/L (0.7-2.1)
--- NOTE | 2020-05-17 04:04 | ED.GENADULT ---
HPI - General Adult General Chief complaint: Abdominal Pain Stated complaint: severe abd pain Time Seen by Provider: 05/17/20 03:11 History of Present Illness HPI narrative: Patient is a 59-year-old female who presents the emergency department she complaint of abdominal pain. Patient reports that she has history of cecal colon cancer and has had a bowel resection and been treated with chemotherapy. Patient reports that over the last 2 days she has had worsening abdominal pain patient does report that she has had a few soft bowel movements and reports has had some nausea. The patient states the pain is feels like a severe cramping-like pain reports that is not improved by anything. The patient denies fever denies chills. Related Data Home Medications Medication Instructions Recorded Confirmed omega-3 fatty acids 1,000 mg 1,000 mg PO DAILY 03/20/20 05/09/20 capsule metoprolol succinate 25 mg PO DAILY 04/25/20 05/09/20 Allergies Allergy/AdvReac Type Severity Reaction Status Date / Time Iodinated Contrast Media Allergy Intermediate Headache Verified 05/17/20 02:59 Review of Systems Review of Systems: Narrative: A 10 system review of systems was completed on the patient and is negative except for what is stated in the HPI. Nursing and ancillary documentation was reviewed. [facility] Past Medical History Medical History Acute appendicitis Acute CVA (cerebrovascular accident) Carcinoma of cecum Generalized weakness H/O Wayne's palsy Left, residual palsy Hypokalemia Mitral valve prolapse Port-A-Cath in place Surgical History Surgical History History of appendectomy History of bowel resection History of dilatation and curettage History of laparoscopy s/p hand assisted laparoscopic right hemicolectomy with ileocolic anastomosis (06/2019) Social History Social History Social History: Patient lives at home with , Jhoan, whom she designates at her surrogate MDM. Her PCP is Dr. Weems; she typically sees his PA, Fede. She wishes to be listed as a Full Code at this moment Smoking status: Never smoker Second hand tobacco smoke exposure: Yes Alcohol intake: former Drinks per week: 1 Substance use: never Substance use type: does not use Gender identity (if verbalized by the patient): Female Spiritual care concerns: No Agree to blood products: Yes Exam Narrative: Exam Narrative: GENERAL: Patient is in moderate pain distress, well-nourished, and in no acute distress. HEAD: Normocephalic, atraumatic. EYES: PERRLA and EOMI. ENT: Nares clear, no rhinorrhea or epistaxis. Mucous membranes moist. NECK: Supple. CHEST: Clear to auscultation. No respiratory distress. HEART: Regular rate and rhythm. No murmur heard. Normal peripheral pulses. ABDOMEN: Soft, diffusely tender , nondistended, normal active bowel sounds. EXTREMITIES: Normal range of motion. No edema. SKIN: Warm, dry, no rash. NEURO: No focal deficits. Alert and oriented x3. PSYCH: Normal mood and affect. Course Course Emergency Course: CT scan shows evidence of developing small bowel obstruction with a transition point in the low abdomen with some surrounding mesenteric edema. Case was discussed with Dr. Beauchamp and also the hospitalist the patient will be admitted to the hospitalist service with a surgical consult. Vital Signs Vital signs: Vital Signs Temperature 35.8 C L 05/17/20 02:55 Pulse Rate 126 H 05/17/20 02:55 Respiratory Rate 22 H 05/17/20 02:55 Blood Pressure 148/96 H 05/17/20 02:55 Pulse Oximetry 100 05/17/20 02:55 Temperature 35.8 C L 05/17/20 02:55 Pulse Rate 126 H 05/17/20 02:55 Respiratory Rate 22 H 05/17/20 02:55 Blood Pressure 148/96 H 05/17/20 02:55 Pulse Oximetry 100 05/17/20 02:55 Medical Dec
[2020-05-17 05:06] VITALS: BP 146/83; PULSE 81; RESP 16; TEMP 36.6; O2SAT 100
--- NOTE | 2020-05-17 05:18 | PM.IMHP ---
H&P: HPI History of Present Illness Date/Time: 05/17/20 05:18 Chief Complaint: Abodminal pain Narrative: This is a pleasant 59 year old female with known previous colon cancer s/p resection and just finished chemotherapy last month and now reported to the hospital with worsening diffuse abdominal pain over the past few days. She has had ongoing constipation. Associated symptoms included nausea and vomiting yesterday. As much as she has tried she has only been having very small bowel movements. She also noticed mild abdominal distention. She denies any fevers, chills, cough, chest pain, palpitations, hematuria, dysuria, or rectal bleeding. She has no previous history of bowel ostructions. CT abd/pelvis demonstrated bowel obstruction. ER provider has consulted General surgery and we have been asked to admit the patient to the hospital for further care. Review of Systems Review of Systems: All systems reviewed & are unremarkable except as noted in HPI and below PMFSH Past Medical History Medical History Acute appendicitis Acute CVA (cerebrovascular accident) Carcinoma of cecum Generalized weakness H/O Wayne's palsy Left, residual palsy Hypokalemia Mitral valve prolapse Port-A-Cath in place Surgical History Surgical History History of appendectomy History of bowel resection History of dilatation and curettage History of laparoscopy s/p hand assisted laparoscopic right hemicolectomy with ileocolic anastomosis (06/2019) Social History Social History Social History: Patient lives at home with , Jhoan, whom she designates at her surrogate MDM. Her PCP is Dr. Weems; she typically sees his PA, Fede. She wishes to be listed as a Full Code at this moment Smoking status: Never smoker Second hand tobacco smoke exposure: Yes Alcohol intake: never Drinks per week: 1 Substance use: never Substance use type: does not use Gender identity (if verbalized by the patient): Female Spiritual care concerns: No Agree to blood products: Yes Meds Home Medications and Allergies Home Medications Medication Instructions Recorded Confirmed Type aspirin 81 mg PO QAM 28 Days #28 tablet 10/04/19 05/17/20 Rx clopidogrel 75 mg tablet 75 mg PO QAM 28 Days #90 tablet 10/31/19 05/17/20 Rx omega-3 fatty acids 1,000 mg 1,000 mg PO DAILY 03/20/20 05/17/20 History capsule rosuvastatin 10 mg tablet 10 mg PO DAILY #30 tablet 03/20/20 05/17/20 Rx metoprolol succinate 25 mg PO DAILY 04/25/20 05/17/20 History Allergies Allergy/AdvReac Type Severity Reaction Status Date / Time Iodinated Contrast Media Allergy Intermediate Headache Verified 05/17/20 02:59 Vital Signs Vital Signs - 24 hr 05/17/20 02:55 05/17/20 05:06 Temperature 35.8 C L 36.6 C Pulse Rate 126 H 81 Respiratory Rate 22 H 16 Blood Pressure 148/96 H 146/83 H Pulse Oximetry 100 100 Exam Const: General: cooperative, alert, awake, acute distress moderate and ill appearing Nutritional Appearance: well nourished Orientation/consciousness: patient oriented x3 HENMT: Head: normal to inspection General nose exam: Normal external nose present Face and sinus: normal facial exam Mouth: Yes Normal oral and palatal mucosa present and Yes oropharynx normal Eyes: Pupils: Equal, round and reactive pupils present EOM: EOMs intact bilaterally Neck: Neck: supple and no JVD Thyroid: thyroid normal Lymphatic: lymphadenopathy not noted Resp: Effort & Inspection: normal respiratory effort Auscultation: clear to auscultation bilaterally Cardio: Rate: regular rate Rhythm: regular rhythm Heart sounds: no murmurs GI: Inspection: normal to inspection GI Palp: Yes abdominal tenderness (periumbilical tenderness w/ palpation++ ) Auscultation: normal bowel sounds Skin: General skin exam: n
[2020-05-17 05:43] LABS: Add Urine Microscopic? YES; Appearance Urine Clear (Clear); Bilirubin Urine Negative (Negative); Blood Urine Negative (Negative); Color Urine Yellow (Yellow); Glucose Urine UA Negative (Negative); Ketones Urine 1+ mg/dL (Negative); Leukocyte Esterase Ur Negative LEU/UL (Negative); Mucus Urine Few /lpf; Nitrate Urine Negative (Negative); Protein Urine 1+ mg/dL (Negative); Specific Grav Ur 1.027 (1.001-1.035); Urobilinogen Urine Negative mg/dL (<2.0); WBC Urine 0-3 /hpf
[2020-05-17] MEDS: HYDROmorphone HCL INJ (*CRX) 1 MG/ML SYR 0.5 MG IV PUSH ×2 (05:43→10:27)
[2020-05-17 06:00] VITALS: BP 124/67; PULSE 82; RESP 16; TEMP 36.1; O2SAT 100
--- NOTE | 2020-05-17 06:02 | ADMGEN ---
This patient, Luba Hernandez, was admitted to Medical Room 246-01. Patient/family oriented to hospital policies and general routines including ID bracelet, bed and alarms, visiting hours, pain management, procedures, bathroom and other care routines, personal items, smoking policy, room service/diet, and visiting hours. Information on how to activate the Rapid Response Team has been discussed. Patient/Family are encouraged to report perceived risks to care and to ask questions if they do not understand what they are told or what they should do.
[2020-05-17 06:03] VITALS: BMI 29.0
[2020-05-17] MEDS: SODIUM CHLORIDE 0.9% IV 1,000 ML 125 ML IV CONT ×2 (06:14→20:34)
[2020-05-17 08:11] LABS: Hemoglobin 12.1 g/dL (12.0-15.0); Mean Corpuscular HGB Conc 33.6 g/dl (32-36); Mean Corpuscular Hemoglobin 30.2 pg (26-34); Mean Corpuscular Volume 89.8 fl (80-100); Mean Platelet Volume 9.3 fl (7.4-10.4); Platelet Count Result 217 k/mm3 (150-375); Red Blood Count 4.01 M/mm3 (4.2-5.4); Red Cell Distribution Width 12.8 % (11.5-14.5); White Blood Count 9.5 K/mm3 (4.5-10.0)
[2020-05-17 08:24] LABS: Anion Gap 1 mmol/L (8-16); Blood Urea Nitrogen 13 mg/dL (7-17); Calcium 8.1 mg/dL (8.4-10.2); Carbon Dioxide 27 mmol/L (22-30); Chloride 108 mmol/L (98-107); Estimated CRCL calculation 70 ml/min; Estimated Glomerular Filt Rate > 60; Glucose 105 mg/dL (65-105); Potassium 3.8 mmol/L (3.4-5.0); Sodium 136 mmol/L (137-145)
[2020-05-17 08:53] LABS: Carcinoembryonic Antigen 45.4 ng/mL (0.0-3.0)
--- NOTE | 2020-05-17 11:15 | PM.CNGS ---
Assessment and Plan Assessment and plan (1) Small bowel obstruction: Code(s): K56.609 - Unspecified intestinal obstruction, unspecified as to partial versus complete obstruction Status: Acute Assessment and Plan: exam largely benign, will get SBS for further eval, cont NPO for now, serial exams, IV hydration (2) Carcinoma of cecum: Code(s): C18.0 - Malignant neoplasm of cecum Status: Acute Assessment and Plan: s/p colectomy and adj chemo, looks like some disease progression on CT, will f/u c oncology p dc (3) History of CVA (cerebrovascular accident): Code(s): Z86.73 - Personal history of transient ischemic attack (TIA), and cerebral infarction without residual deficits Status: Acute Assessment and Plan: cont mgmt per PCP History of Present Illness Consult details Consult date: 05/17/20 Reason for consult: abdominal pain Requesting physician: Trisha Maria PA-C Narrative: Pt is a 59 y/o F c metastatic colon cancer s/p R colectomy and adjuvant chemotx presenting c worsening abd pain, distention over last few days. Pt reports she has been dealing c chronic constipation, largely caused by chemo. Pt reports the abd pain and distention has been worse and she has had some N/V. Pt reports she has had some small bowel movts. Pt reports poor appetite but reports that is not a new symptom. Review of Systems Constitutional: Constitutional: Reports anorexia, Denies body ache(s), Denies chills, Reports fatigue, Denies fever(s), Denies increased appetite, Reports lethargy, Reports malaise, Reports poor appetite, Reports weakness, Denies weight gain and Reports weight loss Eyes: Eyes: Reports no additional eye complaints ENT: Reports system reviewed and no additional complaints, except as documented Cardiovascular: Cardiovascular: Reports no additional cardiovascular complaints Respiratory: Respiratory: Reports no additional respiratory complaints Gastrointestinal: Gastrointestinal: Reports as per HPI Genitourinary: Genitourinary: Reports no additional female genitourinary complaints Musculoskeletal: Musculoskeletal: Reports no additional musculoskeletal complaints Integumentary/Breasts: Skin/Breast: Reports system reviewed and no additional complaints, except as docu Neurologic: Reports system reviewed and no additional complaints, except as documented Psychiatric: Psychiatric: Reports no additional psychiatric complaints Endocrine: Endocrine: Reports no additional endocrine complaints Hematologic/Lymphatic: Hematologic/Lymphatic: Reports no additional hematologic/lymphatic complaints Allergic/Immunologic: Allergic/Immunologic: Reports no additional allergic/immunologic complaints PMFSH Past Medical History Medical History Acute appendicitis Acute CVA (cerebrovascular accident) Carcinoma of cecum Generalized weakness H/O Wayne's palsy Left, residual palsy Hypokalemia Mitral valve prolapse Port-A-Cath in place Surgical History Surgical History History of appendectomy History of bowel resection History of dilatation and curettage History of laparoscopy s/p hand assisted laparoscopic right hemicolectomy with ileocolic anastomosis (06/2019) Social History Social History Social History: Patient lives at home with , Jhoan, whom she designates at her surrogate MDM. Her PCP is Dr. Weems; she typically sees his PA, Fede. She wishes to be listed as a Full Code at this moment Smoking status: Never smoker Second hand tobacco smoke exposure: Yes Alcohol intake: never Drinks per week: 1 Substance use: never Substance use type: does not use Gender identity (if verbalized by the patient): Female Spiritual care concerns: No Agree to blood products: Yes Comments FH - pt denies an
--- NOTE | 2020-05-17 13:32 | PM.IMPN ---
Progress Note: A&P Assessment and Plan (1) Small bowel obstruction: Code(s): K56.609 - Unspecified intestinal obstruction, unspecified as to partial versus complete obstruction Status: Acute Assessment and Plan: Likely secondary to adhesions following right hemicolectomy given CT findings. She also notes chronic constipation. She will need colonoscopy outpatient which was scheduled for next week but will likely need postponed given acute condition. This will be deferred to GI. General surgery is following. SBFT demonstrates distal small bowel obstruction. Management per general surgery Continue IV fluids Continue analgesics (2) Carcinoma of cecum: Code(s): C18.0 - Malignant neoplasm of cecum Status: Acute Assessment and Plan: Cecum cancer (T4b N2a MX stage IIIC, positive for KRAS in exon 2) s/p right hemicolectomy with ileocolic anastomosis by Dr. Case 06/2019 and chemotherapy with FOLFOX regimen through cycle 6 which was discontinued due to poor tolerance. PET scan performed 04/02/20 2ith increased FDG uptake in perirectal lymph nodes and area of the anterolateral right hemipelvis CT abd/pelvis shows enlarging soft tissue deposits (increased in size from imaging 04/17/20, largest increased from 11x9mm to [id number]) in the cul-de-sac concerning for metastatic colon cancer (perirectal lymph nodes or peritoneal implants). Discussed with Dr. Gipson who stated she may consider outpatient biopsy for histological confirmation. Discussed with Dr. Perez and he does feel this can be biopsied outpatient via transgluteal approach. CEA has increased to 45.4 05/17, previously 9.[address] Thorne as she is scheduled for colonoscopy 05/21/[address] Gipson, her oncologist. She will need to reach out to Dr. Dawson's office regarding colonoscopy as she will likely need to delay this a few days given SBO. Dr. Gipson would like to see her in the office next week with her to discuss options as she likely has metastatic disease given aforementioned findings which I discussed with the patient at length today. Discussed outpatient biopsy when she can have arranged by Dr. Gipson if she elects to proceed. (3) Dyslipidemia: Code(s): E78.5 - Hyperlipidemia, unspecified Status: Chronic Assessment and Plan: LFTs reviewed and acceptable. Hold rosuvastatin while NPO and resume when fine from a general surgery standpoint (4) History of CVA (cerebrovascular accident): Code(s): Z86.73 - Personal history of transient ischemic attack (TIA), and cerebral infarction without residual deficits Status: Chronic Assessment and Plan: Affecting right caudate nucleus 09/2019 with no residual deficits. [place] embolic in nature and she underwent PFO closure 11/2019. Continue ASA Resume clopidogrel and rosuvastatin when no longer NPO and we are sure she will not require surgery Subjective Date/time seen: 05/17/20 13:32 Mrs. Hernandez is a 59 y.o. female with PMH significant for cecum cancer (T4b N2a MX stage IIIC, positive for KRAS in exon 2) s/p right hemicolectomy with ileocolic anastomosis by Dr. Case 06/2019 and chemotherapy with FOLFOX regimen through cycle 6 which was discontinued due to poor tolerance, CVA 09/2019 followed by PFO/ASD closure 11/2019 who is seen in follow-up for small bowel obstruction. Abdominal pain is much better today. She has infrequent cramping pains in the mid abdomen but overall improved. She is still NPO at this time per general surgery recommendations. She reports a frontal, band-like headache at this time. She also has nausea and intermittent emesis with one episode earlier today when she had contrast for SBFT. She is not passing flatus. She had 6 bowel movements yesterday but has not had any further bowel movements today. She has no chest pain or dyspnea. She reports no melena or hematochezia. She did have 1 dark bowel mo
[2020-05-17 14:00] VITALS: BP 125/64; PULSE 87; RESP 16; TEMP 37.1; O2SAT 100
[2020-05-17] MEDS: ENOXAPARIN 40 MG/0.4 ML SYRINGE SUB-Q (20:34)
[2020-05-17 22:00] VITALS: BP 127/58; PULSE 82; RESP 18; TEMP 36.1; O2SAT 97
[2020-05-18 05:01] VITALS: BP 128/67; PULSE 76; RESP 20; TEMP 36.1; O2SAT 100
[2020-05-18 05:11] LABS: Basophils Percent Auto 0.4 % (0.2-1.2); Eosinophils Absolute Auto 0.2 K/mm3 (0-0.3); Eosinophils Percent Auto 3.5 % (0-4.4); Hematocrit 41.6 % (37.0-47.0); Hemoglobin 13.2 g/dL (12.0-15.0); Immature Granulocyte Absolute 0.02 K/mm3 (0.00-0.031); Immature Granulocyte Percent A 0.4 % (0-0.5); Lymphocytes Absolute Auto 1.15 K/mm3 (0.9-3.2); Lymphocytes Percent Auto 23.4 % (18.3-44.2); Mean Corpuscular HGB Conc 31.7 g/dl (32-36); Mean Corpuscular Hemoglobin 30.6 pg (26-34); Mean Corpuscular Volume 96.5 fl (80-100); Mean Platelet Volume 9.2 fl (7.4-10.4); Monocytes Absolute Auto 0.4 K/mm3 (0.1-0.6); Monocytes Percent Auto 7.1 % (2.6-8.5); Neutrophils Absolute Auto 3.2 K/mm3 (1.3-6.7); Neutrophils Percent Auto 65.2 % (45.5-73.1); Platelet Count Result 208 k/mm3 (150-375); Red Blood Count 4.31 M/mm3 (4.2-5.4); Red Cell Distribution Width 12.8 % (11.5-14.5); White Blood Count 4.9 K/mm3 (4.5-10.0)
[2020-05-18 05:35] LABS: Anion Gap 3 mmol/L (8-16); Blood Urea Nitrogen 9 mg/dL (7-17); Calcium 8.4 mg/dL (8.4-10.2); Carbon Dioxide 23 mmol/L (22-30); Chloride 109 mmol/L (98-107); Estimated CRCL calculation 81 ml/min; Estimated Glomerular Filt Rate > 60; Glucose 77 mg/dL (65-105); Potassium 3.6 mmol/L (3.4-5.0); Sodium 135 mmol/L (137-145)
[2020-05-18] MEDS: SODIUM CHLORIDE 0.9% IV 1,000 ML 125 ML IV CONT (06:06)
--- NOTE | 2020-05-18 09:21 | PM.PNGS ---
Progress Note: A&P Assessment and Plan (1) Small bowel obstruction: Code(s): K56.609 - Unspecified intestinal obstruction, unspecified as to partial versus complete obstruction Status: Acute Assessment and Plan: exam benign and having some bowel fxn, will start clears and ADAT to soft diet, home if able to leandro diet and cont to have bowel fxn Subjective Subjective Date/Time Seen: 05/18/20 09:21 feels better today, had BM overnight and passing flatus, pt had emesis x 2 yest c SBS Review of Systems Review of Systems: All systems reviewed & are unremarkable except as noted in HPI and below Constitutional: Constitutional: Denies chills, Reports fatigue, Denies fever(s), Reports lethargy, Denies malaise and Denies weakness Cardiovascular: Cardiovascular: Reports no additional cardiovascular complaints Respiratory: Respiratory: Reports no additional respiratory complaints Gastrointestinal: Gastrointestinal: Denies abdominal pain, Reports GI cramping, Reports diarrhea, Reports loose stools, Reports nausea and Reports vomiting Exam Const: General: cooperative, comfortable and no acute distress Resp: Effort & Inspection: normal respiratory effort Auscultation: clear to auscultation bilaterally Cardio: Rate: regular rate Rhythm: regular rhythm GI: Inspection: normal to inspection and distended GI Palp: Yes Soft to palpation, Yes Tenderness to palpation present (GI), No Guarding due to palpation present (GI) and No Rigid due to palpation Other: soft, decreased dist, minimal TTP, +bs Objective Data Vital Signs Vital Signs: Vital Signs - 24 hr 05/17/20 14:00 05/17/20 22:00 05/18/20 05:01 Temperature 37.1 C 36.1 C L 36.1 C L Pulse Rate 87 82 76 Respiratory Rate 16 18 20 Blood Pressure 125/64 127/58 L 128/67 Pulse Oximetry 100 97 100 Intake/Output Intake/Output: Intake & Output 05/15/20 05/16/20 05/17/20 05/18/20 23:59 23:59 23:59 23:59 Intake Total 2100 1200 Output Total 1200 Balance 900 1200 Meds/Results Medications: Active Medications Generic Name Dose Route Start Last Admin Trade Name Freq PRN Reason Stop Dose Admin Aspirin 81 mg 05/18/20 09:00 Aspirin 81 Mg Enteric Tablet PO [facility] Enoxaparin Sodium 40 mg 05/17/20 21:00 05/17/20 20:34 Enoxaparin 40 Mg/0.4 Ml Syringe SUB-Q 40 mg HS HORTENCIA Administration Hydromorphone HCl 0.5 mg 05/17/20 04:44 05/17/20 10:27 Hydromorphone Hcl Inj (*Crx) 1 Mg/Ml Syr IV PUSH 0.5 mg Q4H PRN Administration Pain Rated 7-10 Sodium Chloride 1,000 mls @ 125 mls/hr 05/17/20 04:45 05/18/20 06:06 Normal Saline Iv IV CONT 125 mls/hr .Q8H HORTENCIA Administration Acetaminophen 1,000 mg in 100 mls @ 400 mls/hr 05/17/20 18:00 05/18/20 06:21 Ofirmev 1,000 Mg Ivpb IVPB 05/18/20 18:01 Infused Q6HR HORTENCIA Infusion Ondansetron HCl 4 mg 05/17/20 04:44 05/17/20 05:47 Ondansetron Inj 4 Mg/2 Ml Vial IV PUSH 4 mg Q4H PRN Administration Nausea Radiology Results: ITS Impressions Abdomen/Pelvis CT 05/17/20 08:27 IMPRESSION: 1. Early versus partial small bowel obstruction with sharp change in course of the bowel at the transition point in the anteroinferior pelvis suggesting this is due to an adhesion. 2. Enlarging small soft tissue deposits in the cul-de-sac concerning for progression of metastatic colon cancer which could be either in perirectal lymph nodes or peritoneal implants in the cul-de-sac. Small Bowel X-Ray 05/17/20 15:10 IMPRESSION: 1. Distal small bowel obstruction. Abdomen X-Ray 05/18/20 09:06 IMPRESSION: 1. Oral contrast material now in the colon with no residual contrast filled or dilated loops of small bowel. The other with the findings on prior CT and the delayed extension of contrast into the colon on the small bowel follow-through study, this could represent either a resolving, intermittent or partial small bowel obstruction. Labs Labs: Laboratory Resul
[2020-05-18] MEDS: ASPIRIN 81 MG ENTERIC TABLET PO (09:43)
--- NOTE | 2020-05-18 10:23 | PM.IMPN ---
Progress Note: A&P Assessment and Plan (1) Small bowel obstruction: Code(s): K56.609 - Unspecified intestinal obstruction, unspecified as to partial versus complete obstruction Status: Acute Assessment and Plan: Likely secondary to adhesions following right hemicolectomy given CT findings. She also notes chronic constipation. She will need colonoscopy outpatient which was scheduled for next week but will likely need postponed given acute condition. This will be deferred to GI. General surgery is following. SBFT demonstrates distal small bowel obstruction. Improved. Bowel function has retuned with two soft, brown bowel movements today and she tolerated full liquid but did have a bit of cramping and bloating this afternoon after lunch. Repeat plain films show resolving obstruction with contrast now reaching colon and no residual contrast filled/dilated loops of small bowel. 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 Case 06/2019 and chemotherapy with FOLFOX regimen through cycle 6 which was discontinued due to poor tolerance. PET scan performed 04/02/20 2ith increased FDG uptake in perirectal lymph nodes and area of the anterolateral right hemipelvis CT abd/pelvis shows enlarging soft tissue deposits (increased in size from imaging 04/17/20, largest increased from 11x9mm to 15b44yo) in the cul-de-sac concerning for metastatic colon cancer (perirectal lymph nodes or peritoneal implants). Discussed with Dr. Gipson who stated she may consider outpatient biopsy for histological confirmation. Discussed with Dr. Perez and he does feel this can be biopsied outpatient via transgluteal approach. CEA has increased to 45.4 05/17, previously 9.[address] Thorne as she is scheduled for colonoscopy 05/21/[address] Gipson, her oncologist. She will need to reach out to Dr. Dawson's office regarding colonoscopy as she will likely need to delay this a few days given SBO. Dr. Gipson would like to see her in the office next week with her to discuss options as she likely has metastatic disease given aforementioned findings which I discussed with the patient at length today. Discussed outpatient biopsy when she can have arranged by Dr. Gipson if she elects to proceed. Will order hemoccult stool testing as pt reports bowels are dark (3) Dyslipidemia: Code(s): E78.5 - Hyperlipidemia, unspecified Status: Chronic Assessment and Plan: LFTs reviewed and acceptable. Resume rosuvastatin as diet was advanced today (4) History of CVA (cerebrovascular accident): Code(s): Z86.73 - Personal history of transient ischemic attack (TIA), and cerebral infarction without residual deficits Status: Chronic Assessment and Plan: Affecting right caudate nucleus 09/2019 with no residual deficits. [place] embolic in nature and she underwent PFO closure 11/2019. Continue ASA Resume rosuvastatin Resume clopidogrel when we are sure she will not require surgery during this admission Subjective Date/time seen: 05/18/20 10:23 Mrs. Hernandez is a 59 y.o. female with PMH significant for cecum cancer (T4b N2a MX stage IIIC, positive for KRAS in exon 2) s/p right hemicolectomy with ileocolic anastomosis by Dr. Case 06/2019 and chemotherapy with FOLFOX regimen through cycle 6 which was discontinued due to poor tolerance, CVA 09/2019 followed by PFO/ASD closure 11/2019 who is seen in follow-up for small bowel obstruction. She is doing better today. She had two bowel movements which were dark brown and soft. She tolerated full liquids okay but felt very
[2020-05-18 14:00] VITALS: BP 117/67; PULSE 91; RESP 16; TEMP 36.4; O2SAT 100
[2020-05-18] MEDS: ENOXAPARIN 40 MG/0.4 ML SYRINGE SUB-Q (20:43)
[2020-05-18 22:00] VITALS: BP 130/67; PULSE 79; RESP 20; TEMP 35.9; O2SAT 100
[2020-05-19 05:10] LABS: Hematocrit 34.4 % (37.0-47.0); Hemoglobin 11.7 g/dL (12.0-15.0); Mean Corpuscular Hemoglobin 29.7 pg (26-34); Mean Corpuscular Volume 87.3 fl (80-100); Mean Platelet Volume 9.1 fl (7.4-10.4); Platelet Count Result 217 k/mm3 (150-375); Red Blood Count 3.94 M/mm3 (4.2-5.4); Red Cell Distribution Width 12.5 % (11.5-14.5); White Blood Count 5.8 K/mm3 (4.5-10.0)
[2020-05-19 05:56] LABS: Anion Gap 5 mmol/L (8-16); Blood Urea Nitrogen 7 mg/dL (7-17); Calcium 8.6 mg/dL (8.4-10.2); Carbon Dioxide 26 mmol/L (22-30); Chloride 105 mmol/L (98-107); Estimated CRCL calculation 70 ml/min; Estimated Glomerular Filt Rate > 60; Glucose 83 mg/dL (65-105); Potassium 3.4 mmol/L (3.4-5.0); Sodium 136 mmol/L (137-145)
[2020-05-19 06:00] VITALS: BP 124/57; PULSE 74; RESP 21; TEMP 36.2; O2SAT 100
[2020-05-19 08:20] VITALS: PULSE 93
[2020-05-19] MEDS: METOPROLOL SUCCINATE EXT REL 25 MG TABCR PO (08:20)
[2020-05-19] MEDS: ROSUVASTATIN 10 MG TABLET PO (08:21)
[2020-05-19] MEDS: ASPIRIN 81 MG ENTERIC TABLET PO (08:21)
[2020-05-19] MEDS: OMEGA 3 POLYUNSAT FATTY ACIDS 1 GM CAP PO (08:21)
--- NOTE | 2020-05-19 11:23 | PM.PNGS ---
Progress Note: A&P Assessment and Plan (1) Small bowel obstruction: Code(s): K56.609 - Unspecified intestinal obstruction, unspecified as to partial versus complete obstruction Status: Acute Assessment and Plan: resolved c conservative mgmt, will dc home today c instructions for cont soft diet, will have colonoscopy as scheduled c GI Subjective Subjective Date/Time Seen: 05/19/20 11:23 feels better this am, reports some bloating yest but no N/V, cont to have loose BMs, leandro soft diet Review of Systems Review of Systems: All systems reviewed & are unremarkable except as noted in HPI and below Exam Const: General: cooperative, comfortable and no acute distress Resp: Effort & Inspection: normal respiratory effort Auscultation: clear to auscultation bilaterally Cardio: Rate: regular rate Rhythm: regular rhythm GI: Inspection: normal to inspection and non-distended GI Palp: Yes Soft to palpation, No Tenderness to palpation present (GI) and No Guarding due to palpation present (GI) Objective Data Vital Signs Vital Signs: Vital Signs - 24 hr 05/18/20 14:00 05/18/20 22:00 05/19/20 06:00 Temperature 36.4 C 35.9 C L 36.2 C L Pulse Rate 91 79 74 Respiratory Rate 16 20 21 H Blood Pressure 117/67 130/67 124/57 L Pulse Oximetry 100 100 100 05/19/20 08:20 Temperature Pulse Rate 93 Respiratory Rate Blood Pressure Pulse Oximetry Intake/Output Intake/Output: Intake & Output 05/16/20 05/17/20 05/18/20 05/19/20 23:59 23:59 23:59 23:59 Intake Total 2100 3235 1040 Output Total 1200 950 Balance 900 3235 90 Meds/Results Medications: Active Medications Generic Name Dose Route Start Last Admin Trade Name Freq PRN Reason Stop Dose Admin Aspirin 81 mg 05/18/20 09:00 05/19/20 08:21 Aspirin 81 Mg Enteric Tablet PO 81 mg QAM HORTENCIA Administration Enoxaparin Sodium 40 mg 05/17/20 21:00 05/18/20 20:43 Enoxaparin 40 Mg/0.4 Ml Syringe SUB-Q 40 mg HS HORTENCIA Administration Fish Oil 1 gm 05/19/20 09:00 05/19/20 08:21 Mona 3 Polyunsat Fatty Acids 1 Gm Cap PO 1 gm DAILY HORTENCIA Administration Hydromorphone HCl 0.5 mg 05/17/20 04:44 05/17/20 10:27 Hydromorphone Hcl Inj (*Crx) 1 Mg/Ml Syr IV PUSH 0.5 mg Q4H PRN Administration Pain Rated 7-10 Metoprolol Succinate 25 mg 05/19/20 09:00 05/19/20 08:20 Metoprolol Succinate Ext Rel 25 Mg Tabcr PO 25 mg DAILY HORTENCIA Administration Ondansetron HCl 4 mg 05/17/20 04:44 05/17/20 05:47 Ondansetron Inj 4 Mg/2 Ml Vial IV PUSH 4 mg Q4H PRN Administration Nausea Rosuvastatin Calcium 10 mg 05/19/20 09:00 05/19/20 08:21 Rosuvastatin 10 Mg Tablet PO 10 mg DAILY HORTENCIA Administration Radiology Results: ITS Impressions Abdomen/Pelvis CT 05/17/20 08:27 IMPRESSION: 1. Early versus partial small bowel obstruction with sharp change in course of the bowel at the transition point in the anteroinferior pelvis suggesting this is due to an adhesion. 2. Enlarging small soft tissue deposits in the cul-de-sac concerning for progression of metastatic colon cancer which could be either in perirectal lymph nodes or peritoneal implants in the cul-de-sac. Small Bowel X-Ray 05/17/20 15:10 IMPRESSION: 1. Distal small bowel obstruction. Abdomen X-Ray 05/18/20 09:06 IMPRESSION: 1. Oral contrast material now in the colon with no residual contrast filled or dilated loops of small bowel. The other with the findings on prior CT and the delayed extension of contrast into the colon on the small bowel follow-through study, this could represent either a resolving, intermittent or partial small bowel obstruction. Labs Labs: Laboratory Results - last 24 hr 05/19/20 05/19/20 04:51 04:51 WBC 5.8 RBC 3.94 L Hgb 11.7 L Hct 34.4 L MCV 87.3 D MCH 29.7 MCHC 34.0 RDW 12.5 Plt Count 217 MPV 9.1 Sodium 136 L Potassium 3.4 Chloride 105 Carbon Dioxide 26 Anion
--- NOTE | 2020-05-19 13:41 | PM.DS ---
DS: Admitting Diagnosis Admitting Diagnosis Admitting Diagnosis: Small bowel obstruction DS: Discharge Diagnosis Discharge Diagnosis (1) Small bowel obstruction: Code(s): K56.609 - Unspecified intestinal obstruction, unspecified as to partial versus complete obstruction Status: Acute Assessment and Plan: Discharge Summary (Date of service 05/19/20): Mrs. Hernandez is a 59 y.o. female with PMH significant for cecum cancer s/p right hemicolectomy with ileocolic anastomosis by Dr. aCse 06/2019 and chemotherapy with FOLFOX regimen through cycle 6 which was discontinued due to poor tolerance, CVA 09/2019 felt embolic in nature followed by PFO/ASD closure 11/2019 who presented to the emergency department 05/17/20 for the evaluation of worsening diffuse abdominal pain over the past few days. Associated symptoms included nausea and vomiting. CT abd/pelvis in the emergency department demonstrated prior right hemicolectomy with ileocolic anastomosis in the right abdomen with likely early or partial small bowel obstruction with dilation of a still relatively limited length of small bowel in the pelvis measuring up to 3.4 cm in maximal diameter and with pseudo feces sign proximal to the transition point which in the anterior inferior pelvis where the bowel undergoes a sharp change in course suggesting an adhesion. General surgery was consulted and she was admitted to the hospitalist service for further care. She was treated with bowel rest per general surgery. SBO was felt most likely secondary to adhesions following right hemicolectomy given CT findings. Symptoms improved and bowel function returned. She was passing gas and did have two soft, brown bowel movements 05/18. She was tolerating her diet with minimal discomfort and repeat plain films showed resolving obstruction with contrast now reaching colon and no residual contrast filled/dilated loops of small bowel. She was felt stable for discharge from a general surgery standpoint. Her imaging suggested metastatic adenocarcinoma and CEA was markedly elevated to 45.4 (previously 9.5). I discussed these findings with the patient and Dr. Gipson, her oncologist. (see below). I encouraged she follow-up with Dr. Thorne for colonoscopy and Dr. Gipson would like to see her within 1 week given concern for metastasis. She was discharged in hemodynamically stable condition on the afternoon of 05/19/20.Worrisome signs and symptoms which would warrant return to the emergency department were discussed. 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 Case 06/2019 and chemotherapy with FOLFOX regimen through cycle 6 which was discontinued due to poor tolerance. PET scan performed 04/02/20 2ith increased FDG uptake in perirectal lymph nodes and area of the anterolateral right hemipelvis. CT abd/pelvis shows enlarging soft tissue deposits (increased in size from imaging 04/17/20, largest increased from 11x9mm to 94y68mt) in the cul-de-sac concerning for metastatic colon cancer (perirectal lymph nodes or peritoneal implants). Discussed with Dr. Gipson who stated she may consider outpatient biopsy for histological confirmation. Discussed with Dr. Perez and he does feel this can be biopsied outpatient via transgluteal approach. CEA has increased to 45.4 05/17, previously 9.5. Discussed with Dr. Thorne as she is scheduled for colonoscopy 05/21/[address] Gipson, her oncologist. She will need to reach out to Dr. Dawson's office regarding colonoscopy as she will likely need to delay this a few days given SBO. Dr. Gipson would like to see her in the office next week with her to discuss options as she likely has metastatic disease. I discussed these findings and concerns with the patient at located within [facility]. I also di
== END 2020-05-19 15:24 | disposition home or self-care (01) | DRG 389 ==
LOC: ANHED 04:44 → ANH2MED 05:42
PROVIDERS: Admitting Provider Family Medicine; Emergency Provider Emergency Medicine; PCP Physician Assistant; Visit Provider Physician Assistant
DX: K56.609 Unspecified intestinal obstruction, unspecified as to partial versus complete obstruction (principal); C18.0 Malignant neoplasm of cecum; E78.5 Hyperlipidemia, unspecified; Z86.73 Personal history of transient ischemic attack (TIA), and cerebral infarction without residual deficits
CPT/HCPCS: 36415; 74019; 74176; 74250; 80048; 80053; 81001; 82378; 83605; 83690; 83735; 84443; 85025; 85027; 87040; 96361; 96374; 96375; 96376; 99285; A9270; G0378; J0131; J1170; J1650; J2405; J7030

== ENCOUNTER 2020-05-27 00:45 | Inpatient (IN) | payer OTHER, SELFPAY ==
--- NOTE | ~2020-05-27 | CT_ITS ---
EXAMINATION: CT abdomen pelvis wo con DATE: 05/27/2020 01:53 INDICATION: Abdominal pain. Vomiting. TECHNIQUE: Computed tomography (CT) of the abdomen and pelvis was performed without intravenous contr ast. Automated exposure control and iterative reconstruction technique were employed. The dose-length product was 388.05 mGy-cm. COMPARISON: CT abdomen and pelvis 05/17/2020 FINDINGS: The visualized portions of the lung bases demonstrate mild atelectasis. No pleural effusion . The heart size is normal. There is an interatrial device in the heart. No pericardial effusion. The re is a catheter tip at superior cavoatrial junction. There is a small sliding hiatal hernia. There a re cysts in the liver measuring up to 14 mm. The gallbladder, spleen, pancreas, adrenal glands, and r ight kidney are normal. There is a 2 mm stone in left kidney. There are changes of right hemicolectom y. There are dilated loops of small bowel with transition point in right abdomen, consistent with sma ll bowel obstruction. There are no pathologically enlarged lymph nodes. There is trace ascites. There is nodularity of the perirectal peritoneum. There is an umbilical hernia containing fat. There is th oracolumbar dextroscoliosis. There is severe degenerative disc disease at L5-S1. IMPRESSION: 1. Small bowel obstruction with transition point in right abdomen. 2. Nodularity of the perirectal peritoneum suspicious for metastatic disease. Reviewed, dictated and finalized at location A. PLACEMENT COORDINATOR
--- NOTE | ~2020-05-27 | XR_ITS ---
EXAMINATION: XR sm bowel follow through DATE: 05/28/2020 08:40 INDICATION: Small bowel obstruction. TECHNIQUE: Oral contrast was administered, and a time course of radiographs of the abdomen was obtain ed. Fluoroscopy of the small bowel was performed. Fluoroscopy exposure time was 0.1 minutes. The tota l number of images was 10. COMPARISON: CT abdomen and pelvis 05/27/2020 FINDINGS: There are changes of right hemicolectomy. There are dilated loops of ileum without focal transition p oint. Transit time from the stomach to proximal colon was approximately 15 minutes. IMPRESSION: 1. Dilated small bowel without focal transition point and with normal transit time to the colon, cons istent with adynamic ileus. Reviewed, dictated and finalized at location A. UGATOR OPERATOR HELPER IMPRESSION: 1. Dilated small bowel without focal transition point and with normal transit t mayela to the colon, consistent with adynamic ileus.
--- NOTE | ~2020-05-27 | XR_ITS ---
EXAMINATION: XR abdomen/kub 1V INDICATION: Bowel obstruction TECHNIQUE: Supine views of the abdomen were obtained on 2 radiographs. COMPARISON: 0504 hours FINDINGS: A nasogastric tube within the stomach. There is persistent mildly dilated small bowel of th e mid abdomen. A bowel surgical anastomosis is noted in the right upper quadrant. No free intraperito jed gas is identified. The colon is decompressed. An interatrial closure device is again noted in th e heart. IMPRESSION: 1. Persistent mildly dilated small bowel, consistent with obstruction. Reviewed, dictated and finalized at location A. ORKS COMPUTER CONSULTANT
--- NOTE | ~2020-05-27 | XR_ITS ---
EXAMINATION: XR abdomen NG/feed tube insert DATE: 05/27/2020 05:01 INDICATION: Nasogastric tube placement. TECHNIQUE: An upright view of the abdomen was obtained. COMPARISON: CT abdomen and pelvis 05/27/2020 FINDINGS: The lower abdomen is excluded. There is mildly dilated small bowel in the mid abdomen. The colon is decompressed. The nasogastric tube tip is in the stomach. There is an interatrial closure de vice in the heart. A right chest port is noted. IMPRESSION: 1. Nasogastric tube tip in the stomach. 2. Dilated small bowel, consistent with small bowel obstruction. Reviewed, dictated and finalized at location A. CTOR RADIATION ONCOLOGY
[2020-05-27 00:51] VITALS: BP 144/86; PULSE 111; RESP 22; TEMP 35.9; O2SAT 99
[2020-05-27] MEDS: ONDANSETRON INJ 4 MG/2 ML VIAL IV PUSH ×2 (01:40→06:20)
[2020-05-27] MEDS: MORPHINE SULFATE (*CRX) 4 MG/ML INJ IV PUSH ×2 (01:41→06:13)
[2020-05-27] MEDS: SODIUM CHLORIDE 0.9% IV 1,000 ML 999 ML IV CONT (01:41)
[2020-05-27 02:07] LABS: Basophils Percent Auto 0.3 % (0.2-1.2); Eosinophils Percent Auto 0.4 % (0-4.4); Hemoglobin 12.5 g/dL (12.0-15.0); Immature Granulocyte Absolute 0.04 K/mm3 (0.00-0.031); Immature Granulocyte Percent A 0.4 % (0-0.5); Lymphocytes Absolute Auto 0.65 K/mm3 (0.9-3.2); Lymphocytes Percent Auto 6.6 % (18.3-44.2); Mean Corpuscular HGB Conc 33.8 g/dl (32-36); Mean Corpuscular Volume 88.7 fl (80-100); Mean Platelet Volume 9.7 fl (7.4-10.4); Monocytes Absolute Auto 0.5 K/mm3 (0.1-0.6); Monocytes Percent Auto 4.9 % (2.6-8.5); Neutrophils Absolute Auto 8.5 K/mm3 (1.3-6.7); Neutrophils Percent Auto 87.4 % (45.5-73.1); Platelet Count Result 234 k/mm3 (150-375); Red Blood Count 4.17 M/mm3 (4.2-5.4); White Blood Count 9.8 K/mm3 (4.5-10.0)
[2020-05-27 02:22] LABS: Alanine Aminotransferase 19 U/L (4-35); Alkaline Phosphatase 105 U/L (38-126); Anion Gap 8 mmol/L (8-16); Aspartate Amino Transferase 27 U/L (14-36); Bilirubin,Total 0.3 mg/dL (0.2-1.3); Blood Urea Nitrogen 10 mg/dL (7-17); Calcium 8.9 mg/dL (8.4-10.2); Carbon Dioxide 25 mmol/L (22-30); Chloride 107 mmol/L (98-107); Estimated CRCL calculation 68 ml/min; Estimated Glomerular Filt Rate > 60; Glucose 111 mg/dL (65-105); Lipase 40 U/L (23-300); Potassium 3.7 mmol/L (3.4-5.0); Sodium 140 mmol/L (137-145)
[2020-05-27 02:32] VITALS: BP 121/86; PULSE 84; O2SAT 96
--- NOTE | 2020-05-27 02:44 | ED.ABDPAIN ---
HPI - Abdominal Pain General Chief Complaint: Abdominal Pain Stated Complaint: poss bowel obstruction Time Seen by Provider: 05/27/20 01:03 History of Present Illness HPI narrative: Patient is a 59-year-old female who presents ER with diffuse abdominal discomfort. Feels similar to previous bowel obstruction that she had last month. Having a lot of nausea but no vomiting. She has had some flatus night. No chest pain/chest pressure. She is without fevers or chills or sweats. Has history of cecal carcinoma and underwent resection 1 [address] ago[address] with [address]. Gipson. Related Data Home Medications Medication Instructions Recorded Confirmed omega-3 fatty acids 1,000 mg 1,000 mg PO DAILY 03/20/20 05/27/20 capsule metoprolol succinate 25 mg PO DAILY 04/25/20 05/27/20 Allergies Allergy/AdvReac Type Severity Reaction Status Date / Time Iodinated Contrast Media Allergy Intermediate Headache Verified 05/27/20 06:32 Review of Systems Review of Systems: All systems reviewed & are unremarkable except as noted in HPI and below Constitutional: Constitutional: Denies chills, Denies fever(s) and Denies weakness Gastrointestinal: Gastrointestinal: Reports abdominal pain, Reports bloating, Denies diarrhea, Reports nausea and Denies vomiting Genitourinary: Genitourinary: Denies nocturia and Denies dysuria [facility] Past Medical History Medical History Acute appendicitis Acute CVA (cerebrovascular accident) Carcinoma of cecum Generalized weakness H/O Wayne's palsy Left, residual palsy Hypokalemia Mitral valve prolapse Port-A-Cath in place Surgical History Surgical History History of appendectomy History of bowel resection History of dilatation and curettage History of laparoscopy s/p hand assisted laparoscopic right hemicolectomy with ileocolic anastomosis (06/2019) Social History Social History Social History: Patient lives at home with , Jhoan, whom she designates at her surrogate MDM. Her PCP is Dr. Weems; she typically sees his PA, Fede. She wishes to be listed as a Full Code at this moment Smoking status: Never smoker Second hand tobacco smoke exposure: Yes Alcohol intake: never Drinks per week: 1 Substance use: never Substance use type: does not use Gender identity (if verbalized by the patient): Female Sexual Orientation (if Verbalized by the Patient): Straight or Heterosexual Spiritual care concerns: No Agree to blood products: Yes Exam Narrative: Exam Narrative: GENERAL: Uncomfortable-appearing, well-nourished, and in mild distress. HEAD: Normocephalic, atraumatic. ENT: Mucous membranes moist. CHEST: Clear to auscultation. No respiratory distress. HEART: Tachycardic and regular. Normal peripheral pulses. ABDOMEN: Soft, distended, diffusely tender. EXTREMITIES: Normal range of motion. No edema. SKIN: Warm, dry, no rash. NEURO: Alert and oriented x3. PSYCH: Anxious intermittently tearful.. Course Course Emergency Course: Patient had a lot of anxiety and difficulty tolerating the NG tube. Able to convince patient to keep it down and provide her with intact anxiety medication. Reevaluation(s) Reevaluation #1: Discussed with general surgery. Recommend NG tube. Patient not tolerating on first attempt but will try again. Admit to hospitalist. Date: 05/27/20 Time: 03:54 Vital Signs Vital signs: Vital Signs Temperature 96.7 F L 05/27/20 00:51 Pulse Rate 111 H 05/27/20 00:51 Respiratory Rate 22 H 05/27/20 00:51 Blood Pressure 144/86 H 05/27/20 00:51 Pulse Oximetry 99 05/27/20 00:51 Temperature 98.1 F 05/27/20 05:50 Pulse Rate 95 05/27/20 05:50 Respiratory Rate 18 05/27/20 05:50 Blood Pressure 115/67 05/27/20 05:50 Pulse Oximetry 100 05/27/20 05:50 MDM - Abdominal Pain Lab Data R
--- NOTE | 2020-05-27 03:43 | PC.NURSE ---
pt refusing NG tube. MD made aware. spoke with pt reinforcing the need for the NG tube. Pt continues to refuse NG tube insertion.
[2020-05-27] MEDS: LIDOCAINE HCL 2% GEL UROJET 10 ML PKG (03:45)
[2020-05-27] MEDS: LORazepam INJ (*CRX) 2 MG/ML VIAL 1 MG IV PUSH (05:07)
--- NOTE | 2020-05-27 05:45 | ADMGEN ---
This patient, Luba Hernandez, was admitted to 3 [facility] Surg Room 319-01. Patient/family oriented to hospital policies and general routines including ID bracelet, bed and alarms, visiting hours, pain management, procedures, bathroom and other care routines, personal items, smoking policy, room service/diet, and visiting hours. Information on how to activate the Rapid Response Team has been discussed. Patient/Family are encouraged to report perceived risks to care and to ask questions if they do not understand what they are told or what they should do.
[2020-05-27 05:50] VITALS: BP 115/67; PULSE 95; RESP 18; TEMP 36.7; O2SAT 100
[2020-05-27 06:00] VITALS: BMI 27.1
--- NOTE | 2020-05-27 09:27 | PM.IMHP ---
H&P: HPI History of Present Illness Date/Time: 05/27/20 09:27 Chief Complaint: Abdominal pain Narrative: Date of admission: 05/27/2020 Date of service: 05/27/2020 Luba Hernandez is a 59 year old female with a history of carcinoma of the cecum s/p right hemicolectomy with ileocolic anastomosis in June 2019, CVA with no residual deficits felt to be embolic and now s/p PFO closure, and recent hospitalization from 05/17-05/19/2020 for small-bowel obstruction felt to be secondary to adhesions who presented to the emergency department on 05/27/2020 with complaints of diffuse abdominal pain. She told me ?I knew I had a small-bowel obstruction. My symptoms are the same as last time. Upon my evaluation, she has an NG tube in and she is not tolerating this well. She has pain with speaking and is unwilling to answer many questions due to pain in her throat. She said several times she wants the NG tube out immediately. She said if someone does not take it out soon she will remove it herself. She does eventually answer my questions and tells me that yesterday around 6:00 am, she developed nausea, vomiting, and abdominal cramping mostly in the midline abdomen. She had intermittent episodes in which she felt her abdomen became firm and distended. She did have a loose stool yesterday morning and was passing flatus. She reports for the past week, since her last SBO, she has been unable to tolerate much of a diet and has had only small amounts of soft foods. Her pain persisted, therefore she proceeded to the ED for evaluation. Upon presentation to the emergency department, vital signs were stable, CBC and BMP unremarkable, and CT abdomen/pelvis showed small-bowel obstruction with transition point in right abdomen as well as nodularity of the perirectal peritoneum suspicious for metastatic disease. She is being admitted to hospitalist service under observation status. At this time, her pain has resolved. She is not passing flatus. Her only complaint at this time is sore throat related to NG. Supervising physician for this history and physical is Dr. Junaid Mendez. Review of Systems Review of Systems: Narrative: All systems reviewed with pertinent positives and negatives as per HPI. Additionally, patient denies fever, chills, dizziness, lightheadedness, shortness of breath, cough, chest pain. Denies any episodes of bleeding including melena, hematochezia, or hematemesis. She does report weight loss over the past week secondary to inability to tolerate diet. She is established with Dr. Gipson and had an appointment 1 week ago in which a transgluteal biopsy was recommended, however she adamantly refuses to proceed with this. Denies numbness or tingling. Denies headache, myalgia. Denies any residual deficits related to her CVA in September 2019. Denies visual changes, speech changes, or dysphagia apart from her recent complaints due to NG tube. Denies known COVID positive contacts. [facility] Past Medical History Medical History (Updated 05/27/20 @ 10:30 by Renee Sullivan PA-C) Acute appendicitis Acute CVA (cerebrovascular accident) September 2019 Carcinoma of cecum Generalized weakness H/O Wayne's palsy Left, residual palsy Mitral valve prolapse Port-A-Cath in place Surgical History Surgical History (Updated 05/27/20 @ 10:12 by Renee Sullivan PA-C) History of appendectomy 2019 History of bowel resection 2019 History of dilatation and curettage History of laparoscopy s/p hand assisted laparoscopic right hemicolectomy with ileocolic anastomosis (06/2019) S/P patent foramen ovale closure Amplatzer occlusive device - 11/2019 Family History Family History (Updated 05/27/20 @ 10:12 by Renee Sullivan PA-C) Mother Unknown family medical history Social History Social History (Updated 05/27/20 @ 10:15 by Renee Sullivan PA-C) Social History: Ms. Hernandez lives at home with , Jhoan. She is independent in her ADLs and is currently
[2020-05-27] MEDS: PHENOL/SOD PHENO SPRAY CHERRY (*BKC) 1 SPRAY MUCOUS MEM (10:17)
[2020-05-27] MEDS: LORazepam INJ (*CRX) 2 MG/ML VIAL 0.5 MG IV PUSH (12:59)
[2020-05-27] MEDS: SODIUM CHLORIDE 0.9% IV 1,000 ML 75 ML IV CONT (13:02)
--- NOTE | 2020-05-27 13:26 | PM.CNGS ---
Assessment and Plan Assessment and plan (1) Small bowel obstruction: Code(s): K56.609 - Unspecified intestinal obstruction, unspecified as to partial versus complete obstruction Status: Acute Assessment and Plan: I had a lengthy discussion with the patient about treatment options. 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 The small-bowel obstruction could be caused by adhesions but also could be caused by metastatic spread. If I surgically explore her and identify extensive metastatic spread, surgery would only allow temporary improvement of her obstruction before it could potentially happen again. It is important to maintain the NG tube to try to decompress the bowel and allow time for the bowel obstruction to resolve. I would like to get a follow-up abdominal x-ray today to see if there is any significant improvement in her bowel gas pattern. She is on long-term Plavix for her history of CVA and PFO. This would make any urgent surgery higher risk for bleeding. If she is not showing significant improvement within the next 1-2 days, surgical exploration may be recommended despite her increased risk of bleeding. (2) History of CVA (cerebrovascular accident): Code(s): Z86.73 - Personal history of transient ischemic attack (TIA), and cerebral infarction without residual deficits Status: Chronic Assessment and Plan: Related to PFO which has now been repaired. On long-term Plavix. (3) Carcinoma of cecum: Code(s): C18.0 - Malignant neoplasm of cecum Status: Chronic Assessment and Plan: Recent imaging concerning for metastatic spread the abdominal cavity. 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 History of Present Illness Consult details Consult date: 05/27/20 Reason for consult: other (Small-bowel obstruction) Requesting physician: David Vergara MD Narrative: This is a 59-year-old woman who presented to the emergency department overnight with abdominal pain that started yesterday. She was recently hospitalized 2 weeks ago with a small-bowel obstruction and this resolved without surgical exploration and she was discharged home with a soft diet. She was able to tolerate the diet to a certain degree without recurrent symptoms until last night. She did have a bowel movement yesterday, but has not had a bowel movement or passed flatus since coming to the hospital. She has a history of right hemicolectomy for stage IIIC cecal adenocarcinoma in June of 2019. She was treated with chemo postoperatively but had difficulty tolerating the chemo and this was ended early without completing the full course. She recently had a PET CT which showed possible signs of metastatic cancer in the right pelvis and perirectal area. A CT-guided biopsy was recommended, but she has refused this. No further discussions have been made about further palliative treatment or other options at this time. She is not complaining of much abdominal pain at this point, but is complaining of throat discomfort from the NG tube and wants this removed. Review of Systems Review of Systems: All systems reviewed & are unremarkable except as noted in HPI and below Constitutional: Constitutional: Denies chills and Denies fever(s) Eyes: Eyes: Denies change in vision ENT: Denies hearing loss, Denies neck pain and Denies sore throat Cardiovascular: Cardiovascular: Denies chest pain and Denies dyspnea Respiratory: Respiratory: Denies cough, Denies dyspnea and Denies wheezing Gastrointestinal: Gastrointestinal: Reports as per HPI Genitourinary: Genitourinary: Denies
[2020-05-27 14:00] VITALS: BP 127/66; PULSE 96; RESP 16; TEMP 36.2; O2SAT 97
[2020-05-27] MEDS: ENOXAPARIN 40 MG/0.4 ML SYRINGE SUB-Q (15:45)
[2020-05-27 22:00] VITALS: BP 136/66; PULSE 118; RESP 18; TEMP 36.6; O2SAT 100
[2020-05-28] MEDS: SODIUM CHLORIDE 0.9% IV 1,000 ML 75 ML IV CONT (03:19)
[2020-05-28 06:00] VITALS: BP 119/53; PULSE 105; RESP 18; TEMP 36.8; O2SAT 100
[2020-05-28 07:28] LABS: Alanine Aminotransferase 14 U/L (4-35); Albumin Level 3.5 g/dL (3.5-5.1); Alkaline Phosphatase 83 U/L (38-126); Anion Gap 7 mmol/L (8-16); Aspartate Amino Transferase 24 U/L (14-36); Bilirubin,Total 0.5 mg/dL (0.2-1.3); Blood Urea Nitrogen 9 mg/dL (7-17); Calcium 8.6 mg/dL (8.4-10.2); Carbon Dioxide 26 mmol/L (22-30); Chloride 108 mmol/L (98-107); Estimated CRCL calculation 78 ml/min; Estimated Glomerular Filt Rate > 60; Glucose 89 mg/dL (65-105); Potassium 3.5 mmol/L (3.4-5.0); Sodium 141 mmol/L (137-145)
[2020-05-28 07:38] LABS: Basophils Percent Auto 0.5 % (0.2-1.2); Eosinophils Absolute Auto 0.1 K/mm3 (0-0.3); Eosinophils Percent Auto 0.9 % (0-4.4); Hematocrit 36.9 % (37.0-47.0); Hemoglobin 11.9 g/dL (12.0-15.0); Immature Granulocyte Absolute 0.01 K/mm3 (0.00-0.031); Immature Granulocyte Percent A 0.2 % (0-0.5); Lymphocytes Percent Auto 13.8 % (18.3-44.2); Mean Corpuscular HGB Conc 32.2 g/dl (32-36); Mean Corpuscular Hemoglobin 29.5 pg (26-34); Mean Corpuscular Volume 91.6 fl (80-100); Mean Platelet Volume 10.1 fl (7.4-10.4); Monocytes Absolute Auto 0.5 K/mm3 (0.1-0.6); Monocytes Percent Auto 6.9 % (2.6-8.5); Neutrophils Absolute Auto 5.1 K/mm3 (1.3-6.7); Neutrophils Percent Auto 77.7 % (45.5-73.1); Platelet Count Result 205 k/mm3 (150-375); Red Blood Count 4.03 M/mm3 (4.2-5.4); Red Cell Distribution Width 13.2 % (11.5-14.5); White Blood Count 6.5 K/mm3 (4.5-10.0)
--- NOTE | 2020-05-28 07:40 | PC.NURSE ---
Pt to xray for small bowel series
--- NOTE | 2020-05-28 08:42 | PC.NURSE ---
Pt returned from xray
--- NOTE | 2020-05-28 10:01 | PM.PNGS ---
Progress Note: A&P Assessment and Plan (1) Small bowel obstruction: Code(s): K56.609 - Unspecified intestinal obstruction, unspecified as to partial versus complete obstruction Status: Acute Assessment and Plan: Gastrografin SBFT this morning showed transit time of contrast to the colon in 15 minutes. Bowels are moving. Will remove the NG tube and start a clear liquid diet. I discussed the importance of follow-up with Oncology as an outpatient regarding further plan since there is high suspicion for metastatic disease. Considering she has presented twice within the past two weeks with a small bowel obstruction, it is possible this could occur again in the near future. I encouraged the patient to proceed with the CT-guided peritoneal nodule biopsy as recommended by Oncology, which will allow them to confirm diagnosis and offer options. (2) History of CVA (cerebrovascular accident): Code(s): Z86.73 - Personal history of transient ischemic attack (TIA), and cerebral infarction without residual deficits Status: Chronic (3) Carcinoma of cecum: Code(s): C18.0 - Malignant neoplasm of cecum Status: Chronic Assessment and Plan: Stage IIIC cecal adenocarcinoma s/p MEHRDAD right hemicolectomy in June 2019. Recent evidence on PET/CT scan of concern for metastatic disease. Recommend following up with Oncology as an outpatient as discussed above. (4) intermediate card tender (current) use of antithrombotics/antiplatelets: Code(s): Z79.02 - intermediate card tender (current) use of antithrombotics/antiplatelets Status: Acute Assessment and Plan: On long-term Plavix due to previous CVA related to PFO found during chemotherapy treatment last year. Plavix currently on hold in case of need for surgical intervention. Additional Plan Discussed the patient's plan of care with Dr. Case. Subjective Subjective Date/Time Seen: 05/28/20 09:30 Patient reports: feels better, flatus and diarrhea Interval history: Patient's only complaint this morning is the discomfort of the NG tube. She has had multiple large liquid bowel movements since having the gastrografin study. She denies nausea with the clamped NG. No other complaints at this time. Review of Systems Review of Systems: All systems reviewed & are unremarkable except as noted in HPI and below Gastrointestinal: Gastrointestinal: Reports as per HPI and Reports no additional gastrointestinal complaints Exam Const: General: alert; No acute distress Orientation/consciousness: patient oriented x3 GI: Inspection: normal to inspection and non-distended GI Palp: Yes Soft to palpation, No Tenderness to palpation present (GI) and No Guarding due to palpation present (GI) Auscultation: normal bowel sounds Skin: General skin exam: normal color Neuro: General: moves all extremities and no focal motor deficits Psych: Mental Status: mental status grossly normal Insight: Good insight present (Psych) Judgement: Good judgement present (Psych) Objective Data Vital Signs Vital Signs: Vital Signs - 24 hr 05/27/20 14:00 05/27/20 22:00 05/28/20 06:00 Temperature 97.1 F L 97.9 F 98.2 F Pulse Rate 96 118 H 105 H Respiratory Rate 16 18 18 Blood Pressure 127/66 136/66 119/53 L Pulse Oximetry 97 100 100 Intake/Output Intake/Output: Intake & Output 05/25/20 05/26/20 05/27/20 05/28/20 23:59 23:59 23:59 23:59 Intake Total 1000 1000 Output Total 220 900 Balance 780 100 Meds/Results Medications: Active Medications Generic Name Dose Route Start Last Admin Trade Name Freq PRN Reason Stop Dose Admin Enoxaparin Sodium 40 mg 05/27/20 13:00 05/27/20 15:45 Enoxaparin 40 Mg/0.4 Ml Syringe SUB-Q 40 mg Q24H HORTENCIA Administration Sodium Chloride 1,000 mls @ 75 mls/hr 05/27/20 10:40 05/28/20 03:19 Normal Saline Iv IV CONT 75 mls/hr .[id number] HORTENCIA Administration Lorazepam 0.5 mg 05/27/20 09:27 05/27/20 12:59 Lorazepam Inj (*Crx) 2 Mg/Ml V
--- NOTE | 2020-05-28 13:44 | PM.IMPN ---
Progress Note: A&P Assessment and Plan (1) Small bowel obstruction: Code(s): K56.609 - Unspecified intestinal obstruction, unspecified as to partial versus complete obstruction Status: Acute Assessment and Plan: With transition point in right abdomen. May be related to adhesions or may be related to malignant process as there is concern for metastasis of carcinoma. Gastrografin SBFT demonstrated dilated small bowel without focal transition point and with 15min transit time to the colon. NG tube was removed today (05/28) per general surgery and she is tolerating clear liquids. Management per general surgery Continue gentle IV fluids Continue analgesics available as needed for pain (2) Carcinoma of cecum: Code(s): C18.0 - Malignant neoplasm of cecum Status: Chronic Assessment and Plan: Underwent right hemicolectomy with ileocolic anastomosis by Dr. Case 06/2019 and chemotherapy with FOLFOX regimen through cycle 6 which was discontinued due to poor tolerance. She is established with Dr. Gipson. She had an appointment with him 1 week ago due to concerns for metastatic colon cancer based on CT findings. At that time, transgluteal biopsy was recommended, however she has adamantly declined to proceed with this. On 05/27/2020 showed nodularity of the perirectal peritoneum suspicious for metastatic disease. She further confirms today that she does not want to proceed with transgluteal biopsy at this time Continue oncology recommendations and follow-up with Dr. Gipson outpatient (3) History of CVA (cerebrovascular accident): Code(s): Z86.73 - Personal history of transient ischemic attack (TIA), and cerebral infarction without residual deficits Status: Chronic Assessment and Plan: Affecting right caudate nucleus 09/2019 with no residual deficits. [place] embolic in nature and she underwent PFO closure 11/2019. Resume ASA Hold plavix for now in case surgical intervention is required Resume rosuvastatin (4) DVT prophylaxis: Code(s): Z29.9 - Encounter for prophylactic measures, unspecified Status: Acute Assessment and Plan: Lovenox 40mg SQ QD Subjective Date/time seen: 05/28/20 13:44 Mrs. Hernandez is a 59 y.o. female with PMH significant for carcinoma of the cecum s/p right hemicolectomy with ileocolic anastomosis in June 2019 and concern for recurrence with metastatic spread, CVA with no residual deficits felt to be embolic and now s/p PFO closure, and recent hospitalization from 05/17-05/19/2020 for small-bowel obstruction who is seen in follow-up for recurrent small bowel obstruction. She is doing okay today but notes several loose, yellow, watery stools following gastrografin study. The NG was removed today per general surgery and she feels much better from that standpoint as it was causing discomfort. She reports no nausea or emesis. She tolerated clear liquids well and reports some mild, intermittent cramping in the RUQ but no significant abdominal pain at this time. She reports no calf pain, leg swelling, chest pain, dyspnea, or cough. She has no headaches, dizziness, or lightheadedness. She notes no other concerns. She is still adamantly refusing CT-guided peritoneal nodule biopsy at this time. I was able to call to speak with her per the patient's request and he stated that he talked with Dr. Case and had no further questions at this time. Review of Systems Review of Systems: All systems reviewed & are unremarkable except as noted in HPI and below Exam Narrative: Exam Narrative: General: Pleasant, well-developed, and well-nourished 59 y.o. female sitting in the chair at the bedside in no acute distress. HEENMT: Normocephalic and atraumatic. EOMI. Oral mucosa tacky. Neck: Supple. Cardiac: Regular rate and rhythm. S1 and S2 normal. Lungs: Lungs are clear to auscultation bilaterally. Abdomen: Bowel sounds are normoact
[2020-05-28 14:00] VITALS: BP 114/59; PULSE 97; RESP 16; TEMP 36.1; O2SAT 100
[2020-05-28] MEDS: ENOXAPARIN 40 MG/0.4 ML SYRINGE SUB-Q (15:18)
--- NOTE | 2020-05-28 18:21 | PC.NURSE ---
Pt's IV infiltrated. New IV attempted but was unsuccessful. Dr. Case's exchange called. Dr. Cohen returned call. Notified that patient was tolerating oral intake. No n/v noted. No pain noted. Dr. Cohen provided new order to d/c fluids.
[2020-05-28 22:00] VITALS: BP 108/55; PULSE 86; RESP 16; TEMP 36.8; O2SAT 100
[2020-05-29 06:00] VITALS: BP 117/61; PULSE 81; RESP 20; TEMP 36.7; O2SAT 100
[2020-05-29 06:24] LABS: Basophils Percent Auto 0.4 % (0.2-1.2); Eosinophils Absolute Auto 0.1 K/mm3 (0-0.3); Eosinophils Percent Auto 2.8 % (0-4.4); Hematocrit 34.8 % (37.0-47.0); Hemoglobin 11.5 g/dL (12.0-15.0); Immature Granulocyte Absolute 0.01 K/mm3 (0.00-0.031); Immature Granulocyte Percent A 0.2 % (0-0.5); Lymphocytes Percent Auto 21.8 % (18.3-44.2); Mean Corpuscular Hemoglobin 29.9 pg (26-34); Mean Corpuscular Volume 90.6 fl (80-100); Mean Platelet Volume 9.5 fl (7.4-10.4); Monocytes Absolute Auto 0.4 K/mm3 (0.1-0.6); Monocytes Percent Auto 9.2 % (2.6-8.5); Neutrophils Percent Auto 65.6 % (45.5-73.1); Platelet Count Result 216 k/mm3 (150-375); Red Blood Count 3.84 M/mm3 (4.2-5.4); Red Cell Distribution Width 13.2 % (11.5-14.5); White Blood Count 4.6 K/mm3 (4.5-10.0)
[2020-05-29 06:45] LABS: Anion Gap 6 mmol/L (8-16); Blood Urea Nitrogen 10 mg/dL (7-17); Calcium 8.7 mg/dL (8.4-10.2); Carbon Dioxide 29 mmol/L (22-30); Chloride 105 mmol/L (98-107); Estimated CRCL calculation 78 ml/min; Estimated Glomerular Filt Rate > 60; Glucose 90 mg/dL (65-105); Potassium 3.4 mmol/L (3.4-5.0); Sodium 140 mmol/L (137-145)
[2020-05-29] MEDS: OMEGA 3 POLYUNSAT FATTY ACIDS 1 GM CAP PO (08:14)
[2020-05-29 08:15] VITALS: PULSE 72
[2020-05-29] MEDS: METOPROLOL SUCCINATE EXT REL 25 MG TABCR PO (08:15)
[2020-05-29] MEDS: ASPIRIN 81 MG ENTERIC TABLET PO (08:15)
[2020-05-29] MEDS: ROSUVASTATIN 10 MG TABLET PO (08:15)
--- NOTE | 2020-05-29 10:51 | PM.PNGS ---
Progress Note: A&P Assessment and Plan (1) Small bowel obstruction: Code(s): K56.609 - Unspecified intestinal obstruction, unspecified as to partial versus complete obstruction Status: Acute Assessment and Plan: Bowels continue to move. She is tolerating a full liquid diet. Will advance her to a soft diet - she has been educated by the Field Inspector regarding a full liquid/soft diet to be continued on discharge. Continue this for 2 weeks. Okay from our standpoint to discharge today. Surgical follow-up only as needed. She will need follow-up with Oncology - scheduled to be seen at [facility] next week. (2) History of CVA (cerebrovascular accident): Code(s): Z86.73 - Personal history of transient ischemic attack (TIA), and cerebral infarction without residual deficits Status: Chronic (3) Carcinoma of cecum: Code(s): C18.0 - Malignant neoplasm of cecum Status: Chronic Assessment and Plan: Stage IIIC cecal adenocarcinoma s/p MEHRDAD right hemicolectomy in June 2019. Recent evidence on PET/CT scan of concern for metastatic disease. Recommend following up with Oncology as an outpatient as discussed above. 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 Okay from our standpoint to restart Plavix. Additional Plan Discussed the plan of care with Dr. Case. Subjective Subjective Date/Time Seen: 05/29/20 10:51 Patient reports: no new complaints, feels better, flatus and bowel movement Interval history: Patient feeling better this morning. Reports the liquid BMs have slowed down and she has had two more formed BMs this morning. No nausea or vomiting. Tolerating full liquid diet. No other complaints. She has set up an appointment for 06/03/20 to be seen at [facility]. Review of Systems Review of Systems: All systems reviewed & are unremarkable except as noted in HPI and below Exam Const: General: alert; No acute distress Orientation/consciousness: patient oriented x3 GI: Inspection: normal to inspection and non-distended GI Palp: Yes Soft to palpation, Yes Tenderness to palpation present (GI) (mildly tender RLQ, much improved) and No Guarding due to palpation present (GI) Percussion: Yes normal to percussion Auscultation: normal bowel sounds Skin: General skin exam: normal color Neuro: General: moves all extremities and no focal motor deficits Extrem: General: normal to inspection Psych: Mental Status: mental status grossly normal Insight: Good insight present (Psych) Judgement: Good judgement present (Psych) Objective Data Vital Signs Vital Signs: Vital Signs - 24 hr 05/28/20 14:00 05/28/20 22:00 05/29/20 06:00 Temperature 97.0 F L 98.2 F 98.1 F Pulse Rate 97 86 81 Respiratory Rate 16 16 20 Blood Pressure 114/59 L 108/55 L 117/61 Pulse Oximetry 100 100 100 05/29/20 08:15 Temperature Pulse Rate 72 Respiratory Rate Blood Pressure Pulse Oximetry Intake/Output Intake/Output: Intake & Output 05/26/20 05/27/20 05/28/20 05/29/20 23:59 23:59 23:59 23:59 Intake Total 1000 2660 150 Output Total 220 900 300 Balance 780 1760 -150 Meds/Results Medications: Active Medications Generic Name Dose Route Start Last Admin Trade Name Freq PRN Reason Stop Dose Admin Aspirin 81 mg 05/29/20 09:00 05/29/20 08:15 Aspirin 81 Mg Enteric Tablet PO 81 mg QAM HORTENCIA Administration Enoxaparin Sodium 40 mg 05/27/20 13:00 05/28/20 15:18 Enoxaparin 40 Mg/0.4 Ml Syringe SUB-Q 40 mg Q24H HORTENCIA Administration Fish Oil 1 gm 05/29/20 09:00 05/29/20 08:14 [place] 3 Polyunsat Fatty Acids 1 Gm Cap PO 1 gm DAILY HORTENCIA Administration Lorazepam 0.5 mg 05/27/20 09:27 05/27/20 12:59 Lorazepam Inj (*C
--- NOTE | 2020-05-29 12:15 | PCNSR ---
On 05/29/20, the student, Fern Beckett, provided care and completed [facility] documentation on this patient. I have reviewed the student's documentation and agree with the findings.
--- NOTE | 2020-05-29 12:56 | PM.DS ---
DS: Admitting Diagnosis Admitting Diagnosis Admitting Diagnosis: Small bowel obstruction DS: Discharge Diagnosis Discharge Diagnosis (1) Small bowel obstruction: Code(s): K56.609 - Unspecified intestinal obstruction, unspecified as to partial versus complete obstruction Status: Acute Assessment and Plan: Discharge Summary (Date of service 05/29/20): Mrs. Hernandez is a 59 y.o. female with PMH significant for cecum cancer s/p right hemicolectomy with ileocolic anastomosis by Dr. Case 06/2019 and chemotherapy with FOLFOX regimen through cycle 6 which was discontinued due to poor tolerance, CVA 09/2019 felt embolic in nature followed by PFO/ASD closure 11/2019, and recent hospitalization from 05/17-05/19/2020 for small-bowel obstruction felt to be secondary to adhesions who presented to the emergency department 05/27/20 for the evaluation of diffuse abdominal pain which was consistent with her prior symptoms of small bowel obstruction. Additional symptoms included nausea, vomiting, and minimal ability to tolerate much of a diet. Upon presentation to the emergency department, vital signs were stable, CBC and BMP unremarkable, and CT abdomen/pelvis showed small-bowel obstruction with transition point in right abdomen as well as nodularity of the perirectal peritoneum suspicious for metastatic disease. NG tube was placed for decompression and she was placed on bowel rest with IV fluids, IV analgesics, and general surgery consultation. She was admitted to the hospitalist service for further care. Gastrografin SBFT the morning of 05/28 showed normal transit time of contrast to the colon in 15 minutes and bowels were moving. The NG tube was removed 05/28 as symptoms improved significantly. She was tolerating her diet well with significantly improved abdominal pain. She was seen by Dr. Case who recommended no surgical intervention at this time and follow-up with oncology outpatient given high suspicion for metastatic disease and high risk for recurrence. She was encouraged to proceed with the CT-guided peritoneal nodule biopsy as recommended by Dr. Gipson with oncology, which will allow them to confirm diagnosis and offer options, but she refused to have this done while inpatient on 06/03/20 (plavix must be held for 5 days per IR) and was still not sure if she will proceed. She did state that her scheduled an appointment for [facility] to get a second opinion for 06/03/20. She was encouraged to keep this appointment and consider the transgluteal biopsy for the area of concern for metastatic adenocarcinoma at the perirectal peritoneum. I encouraged her to call Dr. Gipson's office to have the biopsy scheduled should she change her mind. She met with the dietitian to discuss full liquid and soft diet per general surgery recommendations. She was felt stable for discharge from a general surgery standpoint and she was discharged in hemodynamically stable condition on the afternoon of 05/29/20. Worrisome signs and symptoms which would warrant return to the emergency department were discussed. (2) Carcinoma of cecum: Code(s): C18.0 - Malignant neoplasm of cecum Status: Chronic Assessment and Plan: Underwent right hemicolectomy with ileocolic anastomosis by Dr. Case 06/2019 and chemotherapy with FOLFOX regimen through cycle 6 which was discontinued due to poor tolerance. She is established with Dr. Gipson. She had an appointment with him 1 week ago due to concerns for metastatic colon cancer based on CT findings. At that time, transgluteal biopsy was recommended, however she has adamantly declined to proceed with this. On 05/27/2020 showed nodularity of the perirectal peritoneum suspicious for metastatic disease. I did discuss that we could do the transgluteal biopsy on 05/31/20, once plavix was held for a total of 5 days, however she refused this. I also offered to have this scheduled outpatient for her but she also refused
== END 2020-05-29 13:45 | disposition home or self-care (01) | DRG 389 ==
LOC: ANHED 03:54 → ANH3MEDSUR 04:25
PROVIDERS: Physician Assistant; Admitting Provider Internal Medicine; Emergency Provider Emergency Medicine; PCP Physician Assistant; Visit Provider Physician Assistant
DX: K56.699 Other intestinal obstruction unspecified as to partial versus complete obstruction (principal); C18.0 Malignant neoplasm of cecum; C79.89 Secondary malignant neoplasm of other specified sites; Z86.73 Personal history of transient ischemic attack (TIA), and cerebral infarction without residual deficits; Z79.02 Long term (current) use of antithrombotics/antiplatelets
CPT/HCPCS: 36415; 74018; 74176; 74250; 80048; 80053; 83690; 83735; 85025; 96361; 96374; 96375; 96376; 99285; A9270; G0378; J1650; J2060; J2270; J2405; J7030